=== PATIENT | female | born 1975 | race Caucasian/White ===

== ENCOUNTER → 2017-10-12 | Outpatient (CLI) | payer BC ==
[~2017-10-12] MED LIST: ALBUAER19 INH; MULT-506 PO; OMEG10007 PO
== END | disposition home or self-care (01) ==
LOC: C.PATHSPEC 11:18
PROVIDERS: ATTEND Obstetrics & Gynecology
DX: R87.810 Cervical high risk human papillomavirus (HPV) DNA test positive (principal)

== ENCOUNTER 2021-02-15 10:19 | Inpatient (IN) ==
[2021-02-15 10:53] LABS: Basophils # (auto) 0.02 K/uL (0-0.2); Basophils % (auto) 0.3 %; Eosinophils # (auto) 0.36 K/uL (0-0.5); Eosinophils % (auto) 4.8 %; Hematocrit (blood only) 42.3 % (37-47); Hemoglobin 14.4 g/dL (12.0-16.0); Lymphocytes # (auto) 2.77 K/uL (1.2-3.4); Mean Corpuscular Hemoglobin 33.3 pg (25-34); Mean Corpuscular Volume 97.9 fL (80-100); Mean Platelet Volume 10.3 fL (7.4-10.4); Monocytes # (auto) 0.37 K/uL (0.11-0.59); Monocytes % (auto) 4.9 %; Neutrophils # (auto) 3.97 K/uL (1.4-6.5); Platelet Count 289 K/uL (130-400); RDW Coefficient of Variation 12.7 % (11.5-14.5); Red Blood Count 4.32 M/uL (4.2-5.4); White Blood Count 7.49 K/uL (4.8-10.8)
[2021-02-15 11:11] LABS: Albumin Level 3.9 gm/dl (3.4-5.0); BUN Creatinine Ratio 12.5 (10-20); Creatinine Clr Calc Pharmacy 97.9 ml/min; Est GFR (Non-African American) 84.5 ml/min
[2021-02-15 11:22] LABS: Acetaminophen < 2 ug/ml (10-30); Albumin Globulin Ratio 1.1 (0.9-2); Bilirubin,Total 0.3 mg/dl (0.2-1); Globulin 3.5 gm/dl (2.5-4.0); Thyroid Stimulating Hormone 0.611 uIu/ml (0.300-4.500); Total Protein 7.4 gm/dl (6.4-8.2)
[2021-02-15 11:23] LABS: Salicylate 4.4 mg/dl (2.8-20)
--- NOTE | 2021-02-15 12:18 | Emergency Department Note ---
History of Present Illness General Chief complaint: Mental Health Evaluation Stated complaint: FEELIN SUICIDAL Time Seen by Provider: 02/15/21 10:32 History of Present Illness Provider complaint: Mental health evaluation 46-year-old female presents emergency department for mental health evaluation. Patient states she has been off of her medications for her psychiatric problems for some time due to missed appointments at her outpatient psychiatric facility. She states that since she has been off her meds she has been having thoughts of trying to overdose by taking too much Tylenol. Patient states she did not try to overdose but she has been thinking about it. Patient denies any homicidal ideation. She states she feels depressed and is looking for inpatient help for her mental health distress. Home Medications Medication Instructions Recorded Confirmed Type albuterol sulfate [Ventolin HFA] 2 puff INHALATION Q6H PRN 09/24/18 02/15/21 History clonazepam 0.5 mg PO BID PRN #30 tab 10/01/18 02/15/21 Rx norgestrel-ethinyl estradiol 1 tab PO DAILY 02/15/21 02/15/21 History [Low-Ogestrel (28)] Allergies Allergy/AdvReac Type Severity Reaction Status Date / Time animal dander Allergy Unknown ? Verified 02/15/21 11:23 tetanus toxoid, adsorbed Allergy Unknown Unknown Verified 02/15/21 11:23 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) Hyperventilation syndrome Overdose by acetaminophen (03/15/14) Polysubstance overdose Rhabdomyolysis Sepsis Vaginal yeast infection Weakness Family History Brother Depression Father Depression Mother Depression Other Cancer Social History Smoking Status: Never smoker Hx Alcohol Use: Yes Alcohol type: other Preferred Language: Tamazight Communication Ability: Effective Visual Impairment: Partially Limited Hearing Ability: Normal Advertising Production Manager Required: No Beliefs That Will Affect Care: Uatsdin (The patient identifies Jehovah'S Witness and tells me that she goes to synagogue "sometimes.") Uatsdin Beliefs: patient is a Jehovah'S Witness marital status: Single Current Living Situation: Alone Current Living Situation Comment: with landlord current occupational status: unemployed Feels Safe at Home: Yes Assistive Devices: Glasses Review of Systems A total of 10 systems reviewed and were otherwise negative Physical Exam Vital Signs Vital Signs - 24 hr 02/15/21 10:25 02/15/21 13:20 02/15/21 14:28 Temperature 36.5 C Temperature Source Oral Pulse Rate 84 Pulse Rate [Left Finger] 70 Pulse Rhythm Regular Pulse Rhythm [Left Finger] Regular Pulse Strength Normal Pulse Strength [Left Finger] Normal Respiratory Rate 18 20 Respiratory Effort / Characteristics Non-Labored Spontaneous Non-Labored Spontaneous Respiratory Depth Normal Normal Respiratory Pattern Regular Blood Pressure 127/64 Blood Pressure [Left Arm] 122/70 Blood Pressure Mean 85 Blood Pressure Mean [Left Arm] 87 Blood Pressure Position Sitting Blood Pressure Position [Left Arm] Sitting Pulse Oximetry 98 98 Oxygen Delivery Method Room Air Room Air Room Air Sepsis Recent Fever Within 48 Hours No Sepsis New/Unexplained Change in Mental Status No Sepsis Action Taken by Nursing No Action Required Physical Exam HENT: Exam performed. -Head: Normocephalic and atraumatic. -Right Ear: External ear normal. No mastoid tenderness. -Left Ear: External ear normal. No mastoid tenderness. -Mouth/Throat: The oropharynx is clear and moist. No trismus in the jaw. No dental abscesses or uvula swelling. No oropharyngeal exudate or tonsillar abscesses. EYES: Conjunctivae and EOM are normal. Pupils are equal, round, and reactive to light. Right eye exhibits no discharge. Left eye exhibits no discharge. No scleral icterus. NECK: Normal range of motion. Neck supple. No JVD present. No spinous process tenderness present. No carotid bruit present. No rigidity. No tracheal deviation and normal range of motion present. No Brudzinski's sign and no Kernig's sign noted. CV: Normal rate, regular rhythm, normal heart sounds and intact distal pulses. There is no peripheral edema. Palpable radial pulses bue. PULM/CHEST: Effort normal and breath sounds normal. No respiratory distress. No stridor. She has no wheezes. She has no rales. -Chest Wall: She exhibits no tenderness. ABD: The abdomen is soft. Bowel sounds are normal. She has no distension. No mass is present. There is no tenderness. There is no rebound, no guarding, no Bull's sign and no tenderness at McBurney's point. Rovsig negative MUSC/SKEL: Normal range of motion. There is no peripheral edema, tenderness or deformity. LYMPH: No cervical adenopathy. NEURO: She is alert and oriented to person, place, and time. She has normal strength. No cranial nerve deficit or sensory deficit. Coordination and gait normal. GCS eye subscore is 4. GCS verbal subscore is 5. GCS motor subscore is 6. Cerebellar tests wnl. SKIN: Skin is warm and dry. She is not diaphoretic. PSYCH: Patient appears depressed and is having suicidal ideation. Flat affect Course Course 1032: The patient was evaluated in room A8. A complete history and physical exam was performed 1128: Patient medically cleared. Placed in observation at this time. Awaiting psychiatric evaluation and placement. 1428: Patient admitted to 3 . Medical Decision Making Laboratory Data Result diagrams: 02/15/21 10:37 02/15/21 10:37 Lab Results 02/15/21 02/15/21 02/15/21 Range/Units 10:37 10:37 10:37 WBC 7.49 (4.8-10.8) K/uL RBC 4.32 (4.2-5.4) M/uL Hgb 14.4 (12.0-16.0) g/dL Hct 42.3 (37-47) % MCV 97.9 (80-100) fL MCH 33.3 (25-34) pg MCHC 34.0 (32-36) g/dL RDW Std Deviation 46.0 (36.4-46.3) fL RDW Coeff of Yanet 12.7 (11.5-14.5) % Plt Count 289 (130-400) K/uL MPV 10.3 (7.4-10.4) fL Immature Gran % (Auto) 0.0 % Neut % (Auto) 53.0 % Lymph % (Auto) 37.0 % [place] % (Auto) 4.9 % Eos % (Auto) 4.8 % Baso % (Auto) 0.3 % Neut # (Auto) 3.97 (1.4-6.5) K/uL Lymph # (Auto) 2.77 (1.2-3.4) K/uL [place] # (Auto) 0.37 (0.11-0.59) K/uL Eos # (Auto) 0.36 (0-0.5) K/uL Baso # (Auto) 0.02 (0-0.2) K/uL Immature Gran # (Auto) 0.00 (0.00-0.02) K/uL Sodium 142 (136-145) mmol/L Potassium 4.0 (3.5-5.1) mmol/L Chloride 113 H (98-107) mmol/L Carbon Dioxide 27 (21-32) mmol/L Anion Gap 2.0 L (3-11) BUN 10 (7-18) mg/dl Creatinine 0.84 (0.6-1.2) mg/dl Est Cr Clr Drug Dosing 97.9 ml/min Est GFR ( Amer) 98.0 ml/min Est GFR (Non-Af Amer) 84.5 ml/min BUN/Creatinine Ratio 12.5 (10-20) Glucose 105 H (70-99) mg/dl Calcium 9.0 (8.5-10.1) mg/dl Total Bilirubin 0.3 (0.2-1) mg/dl AST 11 L (15-37) U/L ALT 25 (12-78) U/L Alkaline Phosphatase 51 (45-117) U/L Total Protein 7.4 (6.4-8.2) gm/dl Albumin 3.9 (3.4-5.0) gm/dl Globulin 3.5 (2.5-4.0) gm/dl Albumin/Globulin Ratio 1.1 (0.9-2) TSH 0.611 (0.300-4.500) uIu/ml HCG, Qual (Negative) Urine Color Urine Appearance (Clear) Urine pH (4.5-7.5) Ur Specific [place] (1.000-1.030) Urine Protein (Negative) Urine Glucose (UA) (Negative) Urine Ketones (Negative) Urine Blood (Negative) Urine Nitrite (Negative) Urine Bilirubin (Negative) Urine Urobilinogen (Negative) Ur Leukocyte Esterase (Negative) Salicylates 4.4 (2.8-20) mg/dl Urine Opiates Screen (Neg) Ur Methadone, Qual (Neg) Acetaminophen < 2 L (10-30) ug/ml Urine Barbiturates (Neg) Ur Phencyclidine (PCP) (Neg) U Amphetamin/Meth Scrn (Neg) MDMA (Ecstasy) Screen (Neg) U Benzodiazepines Scrn (Neg) Ur Cocaine Metabolite (Neg) U Marijuana (THC) Screen (Neg) Ethyl Alcohol mg/dL (0-3) mg/dl COVID-19 Eval Order SARS-CoV-2, RNA, NAAT (NEGATIVE) 02/15/21 02/15/21 02/15/21 Range/Units 10:37 10:40 11:16 WBC (4.8-10.8) K/uL RBC (4.2-5.4) M/uL Hgb (12.0-16.0) g/dL Hct (37-47) % MCV (80-100) fL MCH (25-34) pg MCHC (32-36) g/dL RDW Std Deviation (36.4-46.3) fL RDW Coeff of Yanet (11.5-14.5) % Plt Count (130-400) K/uL MPV (7.4-10.4) fL Immature Gran % (Auto) % Neut % (Auto) % Lymph % (Auto) % [place] % (Auto) % Eos % (Auto) % Baso % (Auto) % Neut # (Auto) (1.4-6.5) K/uL Lymph # (Auto) (1.2-3.4) K/uL [place] # (Auto) (0.11-0.59) K/uL Eos # (Auto) (0-0.5) K/uL Baso # (Auto) (0-0.2) K/uL Immature Gran # (Auto) (0.00-0.02) K/uL Sodium (136-145) mmol/L Potassium (3.5-5.1) mmol/L Chloride (98-107) mmol/L Carbon Dioxide (21-32) mmol/L Anion Gap (3-11) BUN (7-18) mg/dl Creatinine (0.6-1.2) mg/dl Est Cr Clr Drug Dosing ml/min Est GFR ( Amer) ml/min Est GFR (Non-Af Amer) ml/min BUN/Creatinine Ratio (10-20) Glucose (70-99) mg/dl Calcium (8.5-10.1) mg/dl Total Bilirubin (0.2-1) mg/dl AST (15-37) U/L ALT (12-78) U/L Alkaline Phosphatase (45-117) U/L Total Protein (6.4-8.2) gm/dl Albumin (3.4-5.0) gm/dl Globulin (2.5-4.0) gm/dl Albumin/Globulin Ratio (0.9-2) TSH (0.300-4.500) uIu/ml HCG, Qual Negative (Negative) Urine Color Urine Appearance (Clear) Urine pH (4.5-7.5) Ur Specific [place] (1.000-1.030) Urine Protein (Negative) Urine Glucose (UA) (Negative) Urine Ketones (Negative) Urine Blood (Negative) Urine Nitrite (Negative) Urine Bilirubin (Negative) Urine Urobilinogen (Negative) Ur Leukocyte Esterase (Negative) Salicylates (2.8-20) mg/dl Urine Opiates Screen (Neg) Ur Methadone, Qual (Neg) Acetaminophen (10-30) ug/ml Urine Barbiturates (Neg) Ur Phencyclidine (PCP) (Neg) U Amphetamin/Meth Scrn (Neg) MDMA (Ecstasy) Screen (Neg) U Benzodiazepines Scrn (Neg) Ur Cocaine Metabolite (Neg) U Marijuana (THC) Screen (Neg) Ethyl Alcohol mg/dL < 3.0 (0-3) mg/dl COVID-19 Eval Order Covid19 IDNow atMLAC SARS-CoV-2, RNA, NAAT (NEGATIVE) 02/15/21 02/15/21 02/15/21 Range/Units 11:16 11:52 11:52 WBC (4.8-10.8) K/uL RBC (4.2-5.4) M/uL Hgb (12.0-16.0) g/dL Hct (37-47) % MCV (80-100) fL MCH (25-34) pg MCHC (32-36) g/dL RDW Std Deviation (36.4-46.3) fL RDW Coeff of Yanet (11.5-14.5) % Plt Count (130-400) K/uL MPV (7.4-10.4) fL Immature Gran % (Auto) % Neut % (Auto) % Lymph % (Auto) % [place] % (Auto) % Eos % (Auto) % Baso % (Auto) % Neut # (Auto) (1.4-6.5) K/uL Lymph # (Auto) (1.2-3.4) K/uL [place] # (Auto) (0.11-0.59) K/uL Eos # (Auto) (0-0.5) K/uL Baso # (Auto) (0-0.2) K/uL Immature Gran # (Auto) (0.00-0.02) K/uL Sodium (136-145) mmol/L Potassium (3.5-5.1) mmol/L Chloride (98-107) mmol/L Carbon Dioxide (21-32) mmol/L Anion Gap (3-11) BUN (7-18) mg/dl Creatinine (0.6-1.2) mg/dl Est Cr Clr Drug Dosing ml/min Est GFR ( Amer) ml/min Est GFR (Non-Af Amer) ml/min BUN/Creatinine Ratio (10-20) Glucose (70-99) mg/dl Calcium (8.5-10.1) mg/dl Total Bilirubin (0.2-1) mg/dl AST (15-37) U/L ALT (12-78) U/L Alkaline Phosphatase (45-117) U/L Total Protein (6.4-8.2) gm/dl Albumin (3.4-5.0) gm/dl Globulin (2.5-4.0) gm/dl Albumin/Globulin Ratio (0.9-2) TSH (0.300-4.500) uIu/ml HCG, Qual (Negative) Urine Color Yellow Urine Appearance Clear (Clear) Urine pH 8.5 H (4.5-7.5) Ur Specific [place] 1.008 (1.000-1.030) Urine Protein Negative (Negative) Urine Glucose (UA) Negative (Negative) Urine Ketones Negative (Negative) Urine Blood Negative (Negative) Urine Nitrite Negative (Negative) Urine Bilirubin Negative (Negative) Urine Urobilinogen Negative (Negative) Ur Leukocyte Esterase Negative (Negative) Salicylates (2.8-20) mg/dl Urine Opiates Screen Neg (Neg) Ur Methadone, Qual Neg (Neg) Acetaminophen (10-30) ug/ml Urine Barbiturates Neg (Neg) Ur Phencyclidine (PCP) Neg (Neg) U Amphetamin/Meth Scrn Neg (Neg) MDMA (Ecstasy) Screen Neg (Neg) U Benzodiazepines Scrn Pos H (Neg) Ur Cocaine Metabolite Neg (Neg) U Marijuana (THC) Screen Pos H (Neg) Ethyl Alcohol mg/dL (0-3) mg/dl COVID-19 Eval Order SARS-CoV-2, RNA, NAAT NEGATIVE (NEGATIVE) MDM Narrative Observation note Indication: Psych eval/placement Patient, with PTSD, ITP, splenectomy, borderline personality disorder, panic disorder, depression, was first seen at 1032 hrs and the observation time began at 1128 hrs and was necessary in order to have psych evaluation completed . Upon re-evaluation, 3 hours of observation revealed that the patient should be admitted to 3 S. Disposition date and time February 15, 2021 1428. Impression & Plan Suicidal ideation Discharge Plan Visit Data Chief Complaint: Mental Health Evaluation Stated Complaint: FEELIN SUICIDAL ED Provider: Óscar Goodman Discharge Problem: Suicidal ideation Patient Disposition: Admitted As Inpatient Discharge Instructions Interventions: ED Discharge Assessment Last Done: 02/15/21 14:28
[2021-02-15 12:19] LABS: Appearance Urine Clear (Clear); Bilirubin Urine Negative (Negative); Blood Urine Negative (Negative); Color Urine Yellow; Glucose Urine UA Negative (Negative); Ketones Urine Negative (Negative); Leukocyte Esterase Urine Negative (Negative); Nitrite Urine Negative (Negative); Protein Urine Negative (Negative); Specific Gravity Urine 1.008 (1.000-1.030); Urobilinogen Urine Negative (Negative); pH Urine 8.5 (4.5-7.5)
[2021-02-15 13:00] LABS: Amphetamines+Metham, Urine Neg (Neg); Barbiturates, Urine Neg (Neg); Benzodiazepine, Urine Pos (Neg); Cocaine, Urine Neg (Neg); MDMA (Ecstacy), Urine Neg (Neg); Methadone, Urine Neg (Neg); Opiate, Urine Neg (Neg); Phencyclidine, Urine Neg (Neg)
[2021-02-15 13:59] LABS: Pregnancy Test, Serum Negative (Negative)
[2021-02-15] MEDS ORDERED: BISMUTH SUBSALICYLATE LIQD 236 ML PO PRN (14:36)
[2021-02-15] MEDS ORDERED: MAGNESIUM HYDROXIDE SUSP 30 ML UDC PO PRN (14:36)
[2021-02-15] MEDS ORDERED: SODIUM CHLORIDE 0.65% NA SOLN 45 ML (OCEAN) PRN (14:36)
[2021-02-15] MEDS ORDERED: hydrOXYzine HCl 25 MG TAB PO PRN (14:36)
[2021-02-15] MEDS ORDERED: ALUMINUM/MAGNESIUM SUSP 30 ML UDC PO PRN (14:36)
[2021-02-15] MEDS ORDERED: ACETAMINOPHEN 325 MG TAB PO PRN (14:36)
[2021-02-15] MEDS: clonazePAM 0.5 MG TAB PO PRN ×2 (18:26→22:10)
[2021-02-15] MEDS: hydrOXYzine HCl 25 MG TAB PO PRN ×2 (21:09→22:13)
[2021-02-16] MEDS: PATIENT'S OWN ORAL CONTRACEPTIVE PO SCH (08:53)
[2021-02-16] MEDS: clonazePAM 0.5 MG TAB PO PRN (09:02)
[2021-02-16] MEDS: ALBUTEROL HFA 8 GM INHALER INH PRN ×2 (09:24→21:31)
--- NOTE | 2021-02-16 18:08 | History & Physical ---
Date of Service February 16, 2021 Impression / Recommendations Impression ROOSEVELT VARGAS is a 46-year-old F who currently lives in with a roommate. She has a long history of PTSD, Depression, Panic Attacks, Generalized Anxiety, and repeated suicide attempts, as well as a history of multiple psychiatric hospitalizations. with very little relief from her symptoms except when she did ECT in 2018 after her Overdose attempt. (1) Anxiety: This patient is admitted to the [address] [place] [address] unit she is currently on every 15 minute checks for behavior with suicide precautions for safety this patient will participate in group recreational milieu therapies will be offered additional individual and family sessions as clinically appropriateWe will continue clonazepam at the low dose of 0.5 mg twice daily patient understands the risks of sedation and addiction and also understands the benefits. Present on Admission?: Yes (2) Major depression, recurrent, chronic: This patient is admitted to the [address] [place] [address] unit she is currently on every 15 minute checks for behavior with suicide precautions for safety this patient will participate in group recreational milieu therapies will be offered additional individual and family sessions as clinically appropriate. Given her current paranoia we will consider starting a low-dose antipsychotic such as Vraylar which patient reports never hearing of patient also interested in starting lithium we will start a low-dose lithium 300 mg labs reviewed patient understands the risks and benefits of lithium risk including hypothyroidism and acute problems with her kidneys Consider consult for ECT Present on Admission?: Yes (3) Suicidal ideation: Patient is currently on every 15 minute checks. Patient is jad for safety in the hospital even though she admits to ongoing suicidal thoughts patient denies having a plan in the hospital. Will also start lithium discussed the risk and benefits this will help minimize patient's suicidal thoughts. Present on Admission?: Yes Inventory Assets Strengths: verbal well educated Risk Factors Assessment Do You Have Access To A Gun?: No Mental Health Diagnoses: Yes Substance Use Disorders: Yes Previous Psychiatric Hospitalization: Yes Protective Factors Assessment Employed: No Good Rapport with Provider: Yes Psychiatric History Identifying Data ROOSEVELT VARGAS is a 46-year-old F who currently lives in [] [alone] with [], has a history of [], and was admitted on 02/15/21 14:36 on a [201 voluntary] [302 involuntary] commitment for []. Chief Complaint "[]". History of Present Illness 46-year-old female presents emergency department with depression worsening in the context of multiple psychosocial stressors and suicidal ideation. Patient states she has been off of her medications for her psychiatric problems for some time due to missed appointments at her outpatient psychiatric facility. She states that since she has been off her meds she has been having thoughts of trying to overdose by taking too much Tylenol. Patient states she did not try to overdose but she has been thinking about it. Per Connor Chun in ED yesterday 02/15 " Pt has been experiencing increased depression, severe hopelessness, and SI with a plan to OD. Pt has a hx of 3 prior SA by overdose and has been researching lethal OD's online. Pt reports that she is very lonely. She lives alone and has no friends or family. She is on disability and does not have a job. She is very tearful and states she sees no point in living. She had a male friend for years that she spent a lot of time with. He now has a girlfriend and she never sees him. She states that she misses him very much and that makes her loneliness even worse. Pt sees a therapist, Elodia rowe, at [facility] bi-weekly. Her PCP, Dr Whitfield prescribes 0.5 mg of Klonopin and that is the only medication that she has been taking. She went to [facility] one time (a while ago) and they prescribed medications that caused a lot of side effects so she stopped the meds (she does not remember what they were). She had a second appointment with [facility] last week but did not go to the appointment. She states that she has been too depressed to leave her apartment. She reports hypersomulence and a decreased appetite. She has a history of inpatient treatment at [facility] and [facility]. She is an every day smoker and denies D&A use. She denies hallucinations, delusions and paranoia. She is willing for inpatient treatment. Today patient reports ongoing depression she is willing to contract for safety in the hospital is future oriented about getting help but "I feel things are so bad" Patient reports stressors include recent break-up with a 6-year relationship feels her partner "" he has moved on and he is living with another woman now and he has a new life and I do want to talk about" Patient reports long history of treatment for depression with very little r elief except when she did ECT in 2018 she reports having 9 sessions of ECT which helped her significantly she reports since then "nothing seems to help" While being seen today she did admit to being willing to try other medications including lithium anything but Abilify" patient continues to endorse depression tearful during the meeting endorses ongoing suicidal thoughts no active plans here in the hospital Patient also reports that she thinks the police have been following her " I think they bugged my phone" "I kept looking for why they were doing this but nobody seemed to talk to me" patient reported that she is concerned that she was being watched and part of what brought her to the hospital was the fact that she felt the police were after her bugging her phone and she did not understand what cramps she had committed." Past Psychiatric History Previous Psych History: Patient reports a history of multiple previous psychiatric hospitalization including a number of psychiatric admissions to the behavioral health unit at [facility]. Her most recent p revious psychiatric hospitalization was at [facility] in July 2018. She has had multiple attempts at outpatient treatment, and tells me that she has tried "every psychiatric medication that anyone can think of." Current Psychiatric Diagnosis: MDD Previous Psych Admissions: [facility] 2017 Do You Have Access To A Gun?: No History of Previous Suicide Attempt: Yes Describe Attempts in the Past: Severe Overdose in 2018 S/OP ECT Past Medication Trials: Multiple past trials " every medication you can think of " Past Head Trauma/Neuro History History of Concussion/Seizure: No Allergies Allergy/AdvReac Type Severity Reaction Status Date / Time animal dander Allergy Unknown ? Verified 02/15/21 11:23 tetanus toxoid, adsorbed Allergy Unknown Unknown Verified 02/15/21 11:23 Home Medications Medication Instructions Recorded Confirmed Type albuterol sulfate [Ventolin HFA] 2 puff INHALATION Q6H PRN 09/24/18 02/15/21 History clonazepam 0.5 mg PO BID PRN #30 tab 10/01/18 02/15/21 Rx norgestrel-ethinyl estradiol 1 tab PO DAILY 02/15/21 02/15/21 History [Low-Ogestrel (28)] Family History Family History of: Doesn't Know Alcohol History Hx of Alcohol Use Over the Past 12 Months: No AUDIT Total Score: 2 Smoking Use Have You Smoked or Used Tobacco Products in the Last 30 Days: Yes tobacco type: cigarettes Smoking Status: Current every day smoker Substance History Hx of Prescription Med Misuse Over the Past 12 Months: No Hx of Over the Counter Med Misuse Over the Past 12 Months: No Hx of Inhalent Misuse Over the Past 12 Months: No Hx of Organic Substance Use Over the Past 12 Months: No Hx of Illegal Substances/Street Drug Use Over Past 12 Months: No Problems as a Result of Past Substance Use: None Identified Personal History Living Arrangements: Apartment Born In: [place], [place] Highest Grade Completed: Graduate School Marital Status: Single Number Of Children: 0 Beliefs That Will Affect Care: None Hx Traumatic Life Events: Yes Patient History Medical History Admitted to intensive care unit (Unknown) Anemia Anxiety Bilateral breast implants (01/22/13) Depression Fever (04/25/14) 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) Hyperventilation syndrome Overdose by acetaminophen (03/15/14) Polysubstance overdose Rhabdomyolysis Sepsis Vaginal yeast infection Weakness Family History Brother Depression Father Depression Mother Depression Other Cancer Social History Smoking Status: Current every day smoker Hx Alcohol Use: Yes Alcohol type: other Preferred Language: Sri Lankan Communication Ability: Effective Visual Impairment: Partially Limited Hearing Ability: Normal Work Measurement Engineer Required: No Beliefs That Will Affect Care: None marital status: Single Current Living Situation: Alone Current Living Situation Comment: with landlord current occupational status: unemployed Feels Safe at Home: Yes Assistive Devices: Glasses Review of Systems Review of Systems: All systems reviewed & are unremarkable except as noted in HPI & below Physical Exam Psychiatric: Orientation: alert, oriented x 3, oriented to person, oriented to place, oriented to time and cooperative Apperance: appropriately dressed Eye Contact: + fair eye contact Motor Behavior: + psychomotor retardation Speech: no pressured speech and no loud speech soft - Affect: + flat affect and + tearful affect Mood: + depressed mood Thought Process: goal directed thought process and linear/logical thought process Thought Content: + delusions, + persecution and + hopelessness Suicidal Thoughts: denies suicidal plan; + reports suicidal thoughts ongoing thoughts of suicide reports " this is constant" Homicidal Thoughts: denies homicidal thoughts Cognition: recent memory grossly intact, remote memory grossly intact, attention grossly intact and language grossly intact Estimated Intelligence: consistent with education level Insight: + limited insight Judgement: + limited judgement Vital Signs (Past 24 Hours): Last Vital Signs Temp 36.8 C 02/16/21 06:00 Pulse 70 02/16/21 06:34 Resp 16 02/16/21 06:00 BP 108/68 02/16/21 06:34 Pulse Ox 98 02/15/21 14:59 Results & Data ([facility]) Current Inpatient Medications Current Inpatient Medications: Current Inpatient Medications Acetaminophen (Acetaminophen 325 Mg Tab) 650 mg PO Q4H PRN PRN Reason: Headache or Minor Fever Stop: 03/17/21 14:35 Al Hydrox/Mg Hydrox/Simethicone (Aluminum/Magnesium Susp 30 Ml Udc) 30 ml PO Q4H PRN PRN Reason: GI Upset Stop: 03/17/21 14:35 Albuterol (Albuterol Hfa 8 Gm Inhaler) 2 puffs INH Q6 PRN; Protocol PRN Reason: Shortness Of Breath Or Wheezing Last Admin: 02/16/21 09:24 Dose: 2 puffs Documented by: Bismuth Subsalicylate (Bismuth Subsalicylate Liqd 236 Ml) 15 ml PO PRN PRN PRN Reason: Loose Stool Stop: 03/17/21 14:35 Clonazepam (Clonazepam 0.5 Mg Tab) 0.5 mg PO BID PRN PRN Reason: Anxiety Stop: 03/17/21 15:27 Last Admin: 02/16/21 09:02 Dose: 0.5 mg Documented by: Hydroxyzine HCl (Hydroxyzine Hcl 25 Mg Tab) 50 mg PO HSZ PRN PRN Reason: Insomnia Stop: 03/17/21 14:35 Last Admin: 02/15/21 22:13 Dose: 50 mg Documented by: Hydroxyzine HCl (Hydroxyzine Hcl 25 Mg Tab) 25 mg PO Q4H PRN PRN Reason: Anxiety Stop: 03/17/21 14:35 Magnesium Hydroxide (Magnesium Hydroxide Susp 30 Ml Udc) 30 ml PO DAILY PRN PRN Reason: Constipation Stop: 03/17/21 14:35 Miscellaneous (Patient's Own Oral Contraceptive) 1 ea PO DAILY MARY; Protocol Stop: 03/18/21 08:59 Last Admin: 02/16/21 08:53 Dose: 1 ea Documented by: Sodium Chloride (Sodium Chloride 0.65% Na Soln 45 Ml ([place])) 1 - 2 sprays NA PRN PRN PRN Reason: Nasal Dryness/Congestion Stop: 03/17/21 14:35
[2021-02-16] MEDS: clonazePAM 0.5 MG TAB PO SCH (20:46)
[2021-02-16] MEDS: hydrOXYzine HCl 25 MG TAB PO PRN (21:39)
[2021-02-16] MEDS ORDERED: LITHIUM CARBONATE 300 MG TAB PO SCH (22:00)
[2021-02-17] MEDS: PATIENT'S OWN ORAL CONTRACEPTIVE PO SCH (08:47)
[2021-02-17] MEDS: clonazePAM 0.5 MG TAB PO SCH ×2 (08:49→20:42)
[2021-02-17] MEDS: LITHIUM CARBONATE 300 MG TAB PO SCH (13:48)
[2021-02-17] MEDS: ALBUTEROL HFA 8 GM INHALER INH PRN (15:25)
[2021-02-17] MEDS ORDERED: LURASIDONE HCL 40 MG TAB PO SCH ×2 (17:30→21:00)
[2021-02-17] MEDS: LURASIDONE HCL 40 MG TAB PO SCH (17:39)
[2021-02-17] MEDS: hydrOXYzine HCl 25 MG TAB PO PRN (20:41)
--- NOTE | 2021-02-17 20:57 | Psychiatric Progress Note ---
Date of Service February 17, 2021 Impression / Recommendations Impression ROOSEVELT VARGAS is a 46-year-old F who currently lives in with a roommate. She has a long history of PTSD, Depression, Panic Attacks, Generalized Anxiety, and repeated suicide attempts, as well as a history of multiple psychiatric hospitalizations. with very little relief from her symptoms except when she did ECT in 2018 after her Overdose attempt. (1) Anxiety: This patient is admitted to the [address] [place] [address] unit she is currently on every 15 minute checks for behavior with suicide precautions for safety this patient will participate in group recreational milieu therapies will be offered additional individual and family sessions as clinically appropriateWe will continue clonazepam at the low dose of 0.5 mg twice daily patient understands the risks of sedation and addiction and also understands the benefits. (2) Major depression, recurrent, chronic: This patient is admitted to the [address] [place] [address] unit she is currently on every 15 minute checks for behavior with suicide precautions for safety this patient will participate in group recreational milieu therapies will be offered additional individual and family sessions as clinically appropriate. Given her current paranoia we will consider starting a low-dose antipsychotic such as Vraylar which patient reports never hearing of patient also interested in starting lithium we will start a low-dose lithium 300 mg labs reviewed patient understands the risks and benefits of lithium risk including hypothyroidism and acute problems with her kidneys Consider consult for ECT 02/17/21 [place] changed to morning Latuda added as Adjunct at night - 40mg - daily with meals. Risks and Benefis of Antipsychotics discussed (3) Suicidal ideation: Patient is currently on every 15 minute checks. Patient is jad for safety in the hospital even though she admits to ongoing suicidal thoughts patient denies having a plan in the hospital. Will also start lithium discussed the risk and benefits this will help minimize patient's suicidal thoughts. 02/17/21- reports ongoing chronic thoughts of suicide - contracts for safety in the hospital Inventory Assets Strengths: verbal well educated Risk Factors Assessment Do You Have Access To A Gun?: No Mental Health Diagnoses: Yes Substance Use Disorders: Yes Previous Psychiatric Hospitalization: Yes Protective Factors Assessment Employed: No Good Rapport with Provider: Yes Interval History Chief Complaint "[I think the lithium is helping me"]". "I am still depressed but I think there is hope" Review of Systems Sleep Information Total Hours of Sleep: 6 Meal Information Percent Meal Consumed - Breakfast: 90 Percent Meal Consumed - Lunch: 90 Percent Meal Consumed - Dinner: 100 Subjective Subjective Patient was seen & assessed and interval progress reviewed with treatment team nursing and social work Patient continues to endorse passive thoughts of , continues to endorse depression, continues to endorse difficulty with focus and concentration. Patient also reports that she feels lithium would be better during the daytime. She denies hallucinations. Is less vocal about her thoughts on admission of the police following her. Physical Exam Psychiatric Orientation: alert, oriented x 3, oriented to person, oriented to place, oriented to time and cooperative Apperance: appropriately dressed Eye Contact: + fair eye contact Motor Behavior: + psychomotor retardation Speech: no pressured speech and no loud speech Affect: + flat affect and + tearful affect Mood: + depressed mood Thought Process: goal directed thought process and linear/logical thought process Thought Content: + delusions, + persecution and + hopelessness Suicidal Thoughts: denies suicidal plan; + reports suicidal thoughts Homicidal Thoughts: denies homicidal thoughts Cognition: recent memory grossly intact, remote memory grossly intact, attention grossly intact and language grossly intact Estimated Intelligence: consistent with education level Insight: + limited insight Judgement: + limited judgement Vital Signs (Past 24 Hours) Last Vital Signs Temp 36.6 C 02/17/21 20:00 Pulse 85 02/17/21 15:25 Resp 14 02/17/21 15:25 BP 116/70 02/17/21 06:57 Pulse Ox 98 02/17/21 15:25 Results & Data ([facility]) Current Inpatient Medications Current Inpatient Medications: Current Inpatient Medications Acetaminophen (Acetaminophen 325 Mg Tab) 650 mg PO Q4H PRN PRN Reason: Headache or Minor Fever Stop: 03/17/21 14:35 Al Hydrox/Mg Hydrox/Simethicone (Aluminum/Magnesium Susp 30 Ml Udc) 30 ml PO Q4H PRN PRN Reason: GI Upset Stop: 03/17/21 14:35 Albuterol (Albuterol Hfa 8 Gm Inhaler) 2 puffs INH Q6 PRN; Protocol PRN Reason: Shortness Of Breath Or Wheezing Last Admin: 02/17/21 15:25 Dose: 2 puffs Documented by: Bismuth Subsalicylate (Bismuth Subsalicylate Liqd 236 Ml) 15 ml PO PRN PRN PRN Reason: Loose Stool Stop: 03/17/21 14:35 Clonazepam (Clonazepam 0.5 Mg Tab) 0.5 mg PO BID PRN PRN Reason: Anxiety Stop: 03/17/21 15:27 Last Admin: 02/16/21 09:02 Dose: 0.5 mg Documented by: Clonazepam (Clonazepam 0.5 Mg Tab) 0.5 mg PO BID MARY Stop: 03/18/21 20:59 Last Admin: 02/17/21 20:42 Dose: 0.5 mg Documented by: Hydroxyzine HCl (Hydroxyzine Hcl 25 Mg Tab) 50 mg PO HSZ PRN PRN Reason: Insomnia Stop: 03/17/21 14:35 Last Admin: 02/17/21 20:41 Dose: 50 mg Documented by: Hydroxyzine HCl (Hydroxyzine Hcl 25 Mg Tab) 25 mg PO Q4H PRN PRN Reason: Anxiety Stop: 03/17/21 14:35 [place] Carbonate ([place] Carbonate 300 Mg Tab) 300 mg PO QAM MARY Stop: 03/19/21 13:44 Last Admin: 02/17/21 13:48 Dose: 300 mg Documented by: Lurasidone HCl (Lurasidone Hcl 40 Mg Tab) 40 mg PO 1730 MARY Stop: 03/19/21 17:29 Last Admin: 02/17/21 17:39 Dose: 40 mg Documented by: Magnesium Hydroxide (Magnesium Hydroxide Susp 30 Ml Udc) 30 ml PO DAILY PRN PRN Reason: Constipation Stop: 03/17/21 14:35 Miscellaneous (Patient's Own Oral Contraceptive) 1 ea PO DAILY MARY; Protocol Stop: 03/18/21 08:59 Last Admin: 02/17/21 08:47 Dose: 1 ea Documented by: Sodium Chloride (Sodium Chloride 0.65% Na Soln 45 Ml ([place])) 1 - 2 sprays NA PRN PRN PRN Reason: Nasal Dryness/Congestion Stop: 03/17/21 14:35 Mental Health & Subst Abuse Tx Therapist Name of Therapist: [facility] Therapist's Therapy Appointment Comment: [address] [place] [address] Manager Lan Name of Manager Lan: ANTONIETTA Ross Phone Number for Manager Lan: [phone] Post Discharge Appointments Primary Care Physician Name Of Family Doctor: [facility] - Dr Whitfield Primary Care Provider Appointment Comment: [address], [address], [place] Contact Information Discharge Discharge Address: [address] [place] [address], [address], [place] [address]
[2021-02-18 00:06] LABS: 7-Aminoclonaz, Confirm 30 ng/mL (<25); Hydro-Alp Ur, GC/MS NEGATIVE ng/mL (<25); Hydroxyethylflurazepam, Conf NEGATIVE ng/mL (<50); Hydroxymidazolam Ur, GC/MS NEGATIVE ng/mL (<50); Hydroxytriazolam NEGATIVE ng/mL (<50); Lorazepam, Ur GC/MS NEGATIVE ng/mL (<50); Marijuana Quant, GCMS Urine 190 ng/mL (<5); Nordiazepam, Confirm 331 ng/mL (<50); Oxazepam Ur, GC/MS 564 ng/mL (<50); Temazepam, Confirm 558 ng/mL (<50)
[2021-02-18] MEDS: PATIENT'S OWN ORAL CONTRACEPTIVE PO SCH (09:09)
[2021-02-18] MEDS: clonazePAM 0.5 MG TAB PO SCH ×2 (09:09→21:18)
[2021-02-18] MEDS: LITHIUM CARBONATE 300 MG TAB PO SCH (09:09)
[2021-02-18 09:31] LABS: Glucose Fasting 104 mg/dl (70-99)
[2021-02-18 09:37] LABS: Chol HDL Ratio 3; Cholesterol 186 mg/dl (0-200); HDL Cholesterol 55 mg/dl; LDL Cholesterol Calculated 102 mg/dl; Triglycerides 145 mg/dl (0-150); VLDL Cholesterol 29 mg/dl
[2021-02-18] MEDS: LURASIDONE HCL 40 MG TAB PO SCH (17:18)
--- NOTE | 2021-02-18 18:51 | Psychiatric Progress Note ---
Date of Service February 18, 2021 Impression / Recommendations Impression ROOSEVELT VARGAS is a 46-year-old F who currently lives in with a roommate. She has a long history of PTSD, Depression, Panic Attacks, Generalized Anxiety, and repeated suicide attempts, as well as a history of multiple psychiatric hospitalizations. with very little relief from her symptoms except when she did ECT in 2018 after her Overdose attempt. (1) Anxiety: This patient is admitted to the [address] [place] [address] unit she is currently on every 15 minute checks for behavior with suicide precautions for safety this patient will participate in group recreational milieu therapies will be offered additional individual and family sessions as clinically appropriateWe will continue clonazepam at the low dose of 0.5 mg twice daily patient understands the risks of sedation and addiction and also understands the benefits. (2) Major depression, recurrent, chronic: This patient is admitted to the [address] [place] [address] unit she is currently on every 15 minute checks for behavior with suicide precautions for safety this patient will participate in group recreational milieu therapies will be offered additional individual and family sessions as clinically appropriate. Given her current paranoia we will consider starting a low-dose antipsychotic such as Vraylar which patient reports never hearing of patient also interested in starting lithium we will start a low-dose lithium 300 mg labs reviewed patient understands the risks and benefits of lithium risk including hypothyroidism and acute problems with her kidneys Consider consult for ECT 02/18/21- Increased lithium ongoing thoughts of - recomendations or TMS - given 02/17/21 [place] changed to morning Latuda added as Adjunct at night - 40mg - daily with meals. Risks and Benefis of Antipsychotics discussed (3) Suicidal ideation: Patient is currently on every 15 minute checks. Patient is jad for safety in the hospital even though she admits to ongoing suicidal thoughts patient denies having a plan in the hospital. Will also start lithium discussed the risk and benefits this will help minimize patient's suicidal thoughts. 02/17/21- reports ongoing chronic thoughts of suicide - contracts for safety in the hospital Inventory Assets Strengths: verbal well educated Risk Factors Assessment Do You Have Access To A Gun?: No Mental Health Diagnoses: Yes Substance Use Disorders: Yes Previous Psychiatric Hospitalization: Yes Protective Factors Assessment Employed: No Good Rapport with Provider: Yes Interval History Chief Complaint "[I think I might be getting better"]". Review of Systems Sleep Information Total Hours of Sleep: 7.5 Meal Information Percent Meal Consumed - Breakfast: 100 Percent Meal Consumed - Lunch: 90 Percent Meal Consumed - Dinner: 100 Subjective Subjective Patient was seen & assessed and interval progress reviewed with treatment team [nursing and social work Met with this patient as well and patient reports ongoing depression patient tearful during session when describing her recent episodes with depression. However patient today seen more in the milieu she is attending groups she was noted to be using the exercise bicycle. Patient tearful when discussing her past relationship. She appears optimistic about new medication. Patient denying delusions or hallucinations. Patient admits to ongoing thoughts of and passive thoughts of suicide. Contract for safety in the hospital. Physical Exam Psychiatric Orientation: alert, oriented x 3, oriented to person, oriented to place, oriented to time and cooperative Apperance: appropriately dressed Eye Contact: + fair eye contact Motor Behavior: + psychomotor retardation Speech: no pressured speech and no loud speech Affect: + flat affect and + tearful affect Mood: + depressed mood Thought Process: goal directed thought process and linear/logical thought process Thought Content: + preoccupation and + hopelessness; no delusions and no persecution Suicidal Thoughts: denies suicidal plan; + reports suicidal thoughts Ongoing passive thoughts of suicide- jad for safety in the hospital Homicidal Thoughts: denies homicidal thoughts Cognition: recent memory grossly intact, remote memory grossly intact, attention grossly intact and language grossly intact Estimated Intelligence: consistent with education level Insight: + limited insight Judgement: + limited judgement Vital Signs (Past 24 Hours) Last Vital Signs Temp 36.6 C 02/18/21 06:41 Pulse 75 02/18/21 06:41 Resp 16 02/18/21 06:41 BP 104/64 02/18/21 06:41 Pulse Ox 98 02/17/21 15:25 Results & Data ([facility]) Laboratory Results Laboratory Results - last 24 hr 02/15/21 02/18/21 11:52 09:00 Fasting Glucose 104 H Triglycerides 145 Cholesterol 186 LDL Cholesterol, Calc 102 VLDL Cholesterol, Calc 29 HDL Cholesterol 55 Cholesterol/HDL Ratio 3 U OH-Alprazolam Confrm NEGATIVE 7-[place] Clonazepam 30 H Ur Nordiazepam Confirm 331 H U OH-ethylflurazepam NEGATIVE U Lorazepam Cnf GC/MS NEGATIVE U Oxazepam Confm GC/MS 564 H Ur Temazepam Confirm 558 H U OH-Triazolam Confirm NEGATIVE U OH-Midazolam Confirm NEGATIVE U Marijuana THC Carboxy 190 H Drug Screen Comment SEE NOTE Current Inpatient Medications Current Inpatient Medications: Current Inpatient Medications Acetaminophen (Acetaminophen 325 Mg Tab) 650 mg PO Q4H PRN PRN Reason: Headache or Minor Fever Stop: 03/17/21 14:35 Al Hydrox/Mg Hydrox/Simethicone (Aluminum/Magnesium Susp 30 Ml Udc) 30 ml PO Q4H PRN PRN Reason: GI Upset Stop: 03/17/21 14:35 Albuterol (Albuterol Hfa 8 Gm Inhaler) 2 puffs INH Q6 PRN; Protocol PRN Reason: Shortness Of Breath Or Wheezing Last Admin: 02/17/21 15:25 Dose: 2 puffs Documented by: Bismuth Subsalicylate (Bismuth Subsalicylate Liqd 236 Ml) 15 ml PO PRN PRN PRN Reason: Loose Stool Stop: 03/17/21 14:35 Clonazepam (Clonazepam 0.5 Mg Tab) 0.5 mg PO BID PRN PRN Reason: Anxiety Stop: 03/17/21 15:27 Last Admin: 02/16/21 09:02 Dose: 0.5 mg Documented by: Clonazepam (Clonazepam 0.5 Mg Tab) 0.5 mg PO BID MARY Stop: 03/18/21 20:59 Last Admin: 02/18/21 09:09 Dose: 0.5 mg Documented by: Hydroxyzine HCl (Hydroxyzine Hcl 25 Mg Tab) 50 mg PO HSZ PRN PRN Reason: Insomnia Stop: 03/17/21 14:35 Last Admin: 02/17/21 20:41 Dose: 50 mg Documented by: Hydroxyzine HCl (Hydroxyzine Hcl 25 Mg Tab) 25 mg PO Q4H PRN PRN Reason: Anxiety Stop: 03/17/21 14:35 [place] Carbonate ([place] Carbonate 300 Mg Tab) 600 mg PO QAM MARY Stop: 03/21/21 08:59 Lurasidone HCl (Lurasidone Hcl 40 Mg Tab) 40 mg PO 1730 MARY Stop: 03/19/21 17:29 Last Admin: 02/18/21 17:18 Dose: 40 mg Documented by: Magnesium Hydroxide (Magnesium Hydroxide Susp 30 Ml Udc) 30 ml PO DAILY PRN PRN Reason: Constipation Stop: 03/17/21 14:35 Miscellaneous (Patient's Own Oral Contraceptive) 1 ea PO DAILY MARY; Protocol Stop: 03/18/21 08:59 Last Admin: 02/18/21 09:09 Dose: 1 ea Documented by: Sodium Chloride (Sodium Chloride 0.65% Na Soln 45 Ml ([place])) 1 - 2 sprays NA PRN PRN PRN Reason: Nasal Dryness/Congestion Stop: 03/17/21 14:35 Mental Health & Subst Abuse Tx Therapist Name of Therapist: [facility] Therapist's Date of Therapist Appointment: 03/01/21 Time of Therapist Appointment: 11am Therapy Appointment Comment: [address] [place] [address] Silverware Washer Name of Silverware Washer: ANTONIETTA Ross Phone Number for Silverware Washer: [phone] Post Discharge Appointments Primary Care Physician Name Of Family Doctor: [facility] - Dr Whitfield Primary Care Provider Appointment Comment: [address], [address], [place] Contact Information Discharge Discharge Address: [address] [place] [address], [address] [place] [address]
[2021-02-18] MEDS: ALBUTEROL HFA 8 GM INHALER INH PRN (19:11)
[2021-02-18] MEDS ORDERED: ALBUTEROL HFA 8 GM INHALER INH PRN (19:34)
[2021-02-18] MEDS: hydrOXYzine HCl 25 MG TAB PO PRN (21:19)
[2021-02-19] MEDS: clonazePAM 0.5 MG TAB PO SCH ×2 (09:28→20:51)
[2021-02-19] MEDS: PATIENT'S OWN ORAL CONTRACEPTIVE PO SCH (09:29)
[2021-02-19] MEDS: LITHIUM CARBONATE 300 MG TAB PO SCH (09:29)
[2021-02-19] MEDS: LURASIDONE HCL 40 MG TAB PO SCH (18:29)
--- NOTE | 2021-02-19 19:37 | Psychiatric Progress Note ---
Date of Service February 19, 2021 Impression / Recommendations (1) Anxiety: This patient is admitted to the [address] [place] [address] mental health unit she is currently on every 15 minute checks for behavior with suicide precautions for safety this patient will participate in group recreational m ilieu therapies will be offered additional individual and family sessions as clinically appropriateWe will continue clonazepam at the low dose of 0.5 mg twice daily patient understands the risks of sedation and addiction and also understands the benefits. (2) Major depression, recurrent, chronic: This patient is admitted to the [address] [place] [address] unit she is currently on every 15 minute checks for behavior with suicide precautions for safety this patient will participate in group recreational milieu therapies will be offered additional individual and family sessions as clinically appropriate. Given her current paranoia we will consider starting a low-dose antipsychotic such as Vraylar which patient reports never hearing of patient also interested in starting lithium we will start a low-dose lithium 300 mg labs reviewed patient understands the risks and benefits of lithium risk including hypothyroidism and acute problems with her kidneys Consider consult for ECT 02/19/2021 patient reports some side effects from Latuda and is ambivalent about continuing Latuda on the outside will discontinue Latuda patient is doing well with just the lithium consider serotonin SSRI as adjunct. Patient remains chronically suicidal for inpatient hospitalization is still necessary to continue to evaluate given the seriousness of her overdose attempts in the past 02/18/21- Increased lithium ongoing thoughts of - recomendations or TMS - given 02/17/21 [place] changed to morning Latuda added as Adjunct at night - 40mg - daily with meals. Risks and Benefis of Antipsychotics discussed (3) Suicidal ideation: Patient is currently on every 15 minute checks. Patient is jad for safety in the hospital even though she admits to ongoing suicidal thoughts patient denies having a plan in the hospital. Will also start lithium discussed the risk and benefits this will help minimize patient's suicidal thoughts. 02/17/21- reports ongoing chronic thoughts of suicide - contracts for safety in the hospital Risk Factors Assessment Do You Have Access To A Gun?: No Mental Health Diagnoses: Yes Substance Use Disorders: Yes Previous Psychiatric Hospitalization: Yes Protective Factors Assessment Employed: No Good Rapport with Provider: Yes Interval History Chief Complaint "[I think I am doing better]". Review of Systems Sleep Information Total Hours of Sleep: 7.25 Meal Information Percent Meal Consumed - Breakfast: 100 Percent Meal Consumed - Lunch: 100 Percent Meal Consumed - Dinner: 100 Subjective Subjective Patient was seen & assessed and interval progress reviewed with treatment team [nursing and social work patient seen by parts data writer and discussed with the treatment team patient reports feeling better reports that she feels a little more hopeful reports medications have made some improvement she also reports attending groups as a significant factor to her improvement patient however does complain about side effects from Latuda feels that the Latuda is making her eyes "weird" Patient denies active suicidal thoughts, patient reports those thoughts will always be there so admits to chronic thoughts but no active thoughts no plans no hallucinations no delusions no evidence of response to internal stimuli. Physical Exam Psychiatric Orientation: alert, oriented x 3, oriented to person, oriented to place, oriented to time and cooperative Apperance: appropriately dressed Eye Contact: + fair eye contact Motor Behavior: steady gait and station; no psychomotor retardation Speech: no pressured speech and no loud speech Affect: + anxious affect; no flat affect and no tearful affect Mood: + depressed mood and + anxious mood Thought Process: goal directed thought process, linear/logical thought process and clear/coherent thought process Thought Content: no preoccupation, no delusions, no persecution and no hopelessness Suicidal Thoughts: denies suicidal thoughts and denies suicidal plan Ongoing chronic thoughts of suicide but no active thoughts Homicidal Thoughts: denies homicidal thoughts and denies homicidal plan Cognition: recent memory grossly intact, remote memory grossly intact, attention grossly intact and language grossly intact Estimated Intelligence: consistent with education level Insight: + fair insight Judgement: + fair judgement Vital Signs (Past 24 Hours) Last Vital Signs Temp 36.7 C 02/19/21 06:44 Pulse 69 02/19/21 06:45 Resp 16 02/19/21 06:44 BP 106/67 02/19/21 06:45 Pulse Ox 98 02/18/21 19:11 Results & Data ([facility]) Current Inpatient Medications Current Inpatient Medications: Current Inpatient Medications Acetaminophen (Acetaminophen 325 Mg Tab) 650 mg PO Q4H PRN PRN Reason: Headache or Minor Fever Stop: 03/17/21 14:35 Al Hydrox/Mg Hydrox/Simethicone (Aluminum/Magnesium Susp 30 Ml Udc) 30 ml PO Q4H PRN PRN Reason: GI Upset Stop: 03/17/21 14:35 Albuterol (Albuterol Hfa 8 Gm Inhaler) 2 puffs INH Q6 PRN; Protocol PRN Reason: Shortness Of Breath Or Wheezing Stop: 03/21/21 00:00 Bismuth Subsalicylate (Bismuth Subsalicylate Liqd 236 Ml) 15 ml PO PRN PRN PRN Reason: Loose Stool Stop: 03/17/21 14:35 Clonazepam (Clonazepam 0.5 Mg Tab) 0.5 mg PO BID PRN PRN Reason: Anxiety Stop: 03/17/21 15:27 Last Admin: 02/16/21 09:02 Dose: 0.5 mg Documented by: Clonazepam (Clonazepam 0.5 Mg Tab) 0.5 mg PO BID MARY Stop: 03/18/21 20:59 Last Admin: 02/19/21 09:28 Dose: 0.5 mg Documented by: Hydroxyzine HCl (Hydroxyzine Hcl 25 Mg Tab) 50 mg PO HSZ PRN PRN Reason: Insomnia Stop: 03/17/21 14:35 Last Admin: 02/18/21 21:19 Dose: 50 mg Documented by: Hydroxyzine HCl (Hydroxyzine Hcl 25 Mg Tab) 25 mg PO Q4H PRN PRN Reason: Anxiety Stop: 03/17/21 14:35 [place] Carbonate ([place] Carbonate 300 Mg Tab) 600 mg PO QAM MARY Stop: 03/21/21 08:59 Last Admin: 02/19/21 09:29 Dose: 600 mg Documented by: Magnesium Hydroxide (Magnesium Hydroxide Susp 30 Ml Udc) 30 ml PO DAILY PRN PRN Reason: Constipation Stop: 03/17/21 14:35 Miscellaneous (Patient's Own Oral Contraceptive) 1 ea PO DAILY MARY; Protocol Stop: 03/18/21 08:59 Last Admin: 02/19/21 09:29 Dose: 1 ea Documented by: Sodium Chloride (Sodium Chloride 0.65% Na Soln 45 Ml ([place])) 1 - 2 sprays NA PRN PRN PRN Reason: Nasal Dryness/Congestion Stop: 03/17/21 14:35 Mental Health & Subst Abuse Tx Therapist Name of Therapist: [facility] [place] Therapist's Date of Therapist Appointment: 03/01/21 Time of Therapist Appointment: 11am Therapy Appointment Comment: [address] [place] [address] Senior Mechanical Project Manager Name of Senior Mechanical Project Manager: ANTONIETTA Ross Phone Number for Senior Mechanical Project Manager: [phone] Post Discharge Appointments Primary Care Physician Name Of Family Doctor: [facility] - Dr Whitfield Primary Care Provider Appointment Comment: [address], [address], [place] Contact Information Discharge Discharge Address: [address] [place] [address], [address], [place] [address]
[2021-02-19] MEDS: hydrOXYzine HCl 25 MG TAB PO PRN (20:53)
[2021-02-20] MEDS: clonazePAM 0.5 MG TAB PO SCH ×2 (08:20→21:24)
[2021-02-20] MEDS: PATIENT'S OWN ORAL CONTRACEPTIVE PO SCH (08:21)
[2021-02-20] MEDS: LITHIUM CARBONATE 300 MG TAB PO SCH (08:21)
--- NOTE | 2021-02-20 18:16 | Psychiatric Progress Note ---
Date of Service February 20, 2021 Impression / Recommendations (1) Anxiety: This patient is admitted to the [address] [place] [address] mental health unit she is currently on every 15 minute checks for behavior with suicide precautions for safety this patient will participate in group recreational m ilieu therapies will be offered additional individual and family sessions as clinically appropriateWe will continue clonazepam at the low dose of 0.5 mg twice daily patient understands the risks of sedation and addiction and also understands the benefits. (2) Major depression, recurrent, chronic: This patient is admitted to the [address] [place] [address] [facility] she is currently on every 15 minute checks for behavior with suicide precautions for safety this patient will participate in group recreational milieu therapies will be offered additional individual and family sessions as clinically appropriate. Given her current paranoia we will consider starting a low-dose antipsychotic such as Vraylar which patient reports never hearing of patient also interested in starting lithium we will start a low-dose lithium 300 mg labs reviewed patient understands the risks and benefits of lithium risk including hypothyroidism and acute problems with her kidneys Consider consult for ECT 02/20/2021 patient has felt better after Latuda has been discontinued she really feels more awake per patient she denies side effects from lithium we will check lithium level lithium dose is currently very low. At this point unclear if there is any need to increase patient denies suicidal ideation while in the hospital we will continue to monitor giving her past history of significant illness. 02/19/2021 patient reports some side effects from Latuda and is ambivalent about continuing Latuda on the outside will discontinue Latuda patient is doing well with just the lithium consider serotonin SSRI as adjunct. Patient remains chronically suicidal for inpatient hospitalization is still necessary to continue to evaluate given the seriousness of her overdose attempts in the past 02/18/21- Increased lithium ongoing thoughts of - recomendations or TMS - given 02/17/21 [place] changed to morning Latuda added as Adjunct at night - 40mg - daily with meals. Risks and Benefis of Antipsychotics discussed (3) Suicidal ideation: Patient is currently on every 15 minute checks. Patient is jad for safety in the hospital even though she admits to ongoing suicidal thoughts patient denies having a plan in the hospital. Will also start lithium discussed the risk and benefits this will help minimize patient's suicidal thoughts. 02/17/21- reports ongoing chronic thoughts of suicide - contracts for safety in the hospital Risk Factors Assessment Do You Have Access To A Gun?: No Mental Health Diagnoses: Yes Substance Use Disorders: Yes Previous Psychiatric Hospitalization: Yes Protective Factors Assessment Employed: No Good Rapport with Provider: Yes Interval History Chief Complaint "I think I am getting better I am looking forward to TMS]". Review of Systems Sleep Information Total Hours of Sleep: 6.5 Meal Information Percent Meal Consumed - Breakfast: 99 Percent Meal Consumed - Lunch: 100 Percent Meal Consumed - Dinner: 100 Subjective Subjective Patient was seen & assessed and interval progress reviewed with treatment team nursing and social work patient reports doing better she is actively engaged in groups affect is much improved she denies suicidal ideation she denies homicidal ideation at this time she does admits to feeling more hopeful especially as she thinks about going back into the community she reports being actively engaged in groups and"I am trying to learn everything I can" Physical Exam Psychiatric Orientation: alert, oriented x 3, oriented to person, oriented to place, oriented to time and cooperative Apperance: appropriately dressed Eye Contact: + fair eye contact Motor Behavior: steady gait and station; no psychomotor retardation Speech: normal rate/rhythm/volume of speech; no pressured speech and no loud speech Affect: euthymic affect and + anxious affect; no flat affect and no tearful affect Mood: + depressed mood and + anxious mood Thought Process: goal directed thought process, linear/logical thought process and clear/coherent thought process Thought Content: no preoccupation, no delusions, no persecution and no hopelessness Suicidal Thoughts: denies suicidal thoughts and denies suicidal plan Homicidal Thoughts: denies homicidal thoughts and denies homicidal plan Cognition: recent memory grossly intact, remote memory grossly intact, attention grossly intact and language grossly intact Estimated Intelligence: consistent with education level Insight: + fair insight Judgement: + fair judgement Vital Signs (Past 24 Hours) Last Vital Signs Temp 36.8 C 02/20/21 06:46 Pulse 76 02/20/21 06:47 Resp 16 02/20/21 06:46 BP 113/70 02/20/21 06:47 Pulse Ox 98 02/18/21 19:11 [facility] Current Inpatient Medications Current Inpatient Medications: Current Inpatient Medications Acetaminophen (Acetaminophen 325 Mg Tab) 650 mg PO Q4H PRN PRN Reason: Headache or Minor Fever Stop: 03/17/21 14:35 Al Hydrox/Mg Hydrox/Simethicone (Aluminum/Magnesium Susp 30 Ml Udc) 30 ml PO Q4H PRN PRN Reason: GI Upset Stop: 03/17/21 14:35 Albuterol (Albuterol Hfa 8 Gm Inhaler) 2 puffs INH Q6 PRN; Protocol PRN Reason: Shortness Of Breath Or Wheezing Stop: 03/21/21 00:00 Bismuth Subsalicylate (Bismuth Subsalicylate Liqd 236 Ml) 15 ml PO PRN PRN PRN Reason: Loose Stool Stop: 03/17/21 14:35 Clonazepam (Clonazepam 0.5 Mg Tab) 0.5 mg PO BID PRN PRN Reason: Anxiety Stop: 03/17/21 15:27 Last Admin: 02/16/21 09:02 Dose: 0.5 mg Documented by: Clonazepam (Clonazepam 0.5 Mg Tab) 0.5 mg PO BID MARY Stop: 03/18/21 20:59 Last Admin: 02/20/21 08:20 Dose: 0.5 mg Documented by: Hydroxyzine HCl (Hydroxyzine Hcl 25 Mg Tab) 50 mg PO HSZ PRN PRN Reason: Insomnia Stop: 03/17/21 14:35 Last Admin: 02/19/21 20:53 Dose: 50 mg Documented by: Hydroxyzine HCl (Hydroxyzine Hcl 25 Mg Tab) 25 mg PO Q4H PRN PRN Reason: Anxiety Stop: 03/17/21 14:35 [place] Carbonate ([place] Carbonate 300 Mg Tab) 600 mg PO QAM MARY Stop: 03/21/21 08:59 Last Admin: 02/20/21 08:21 Dose: 600 mg Documented by: Magnesium Hydroxide (Magnesium Hydroxide Susp 30 Ml Udc) 30 ml PO DAILY PRN PRN Reason: Constipation Stop: 03/17/21 14:35 Miscellaneous (Patient's Own Oral Contraceptive) 1 ea PO DAILY MARY; Protocol Stop: 03/18/21 08:59 Last Admin: 02/20/21 08:21 Dose: 1 ea Documented by: Sodium Chloride (Sodium Chloride 0.65% Na Soln 45 Ml ([place])) 1 - 2 sprays NA PRN PRN PRN Reason: Nasal Dryness/Congestion Stop: 03/17/21 14:35 Mental Health & Subst Abuse Tx Therapist Name of Therapist: [facility] - [place] Therapist's Date of Therapist Appointment: 03/01/21 Time of Therapist Appointment: 11am Therapy Appointment Comment: [id number] [place] [address] Cooler Tender Name of Cooler Tender: ANTONIETTA Ross Phone Number for Cooler Tender: [phone] Post Discharge Appointments Primary Care Physician Name Of Family Doctor: [facility] - Dr Whitfield Primary Care Provider Appointment Comment: [phone], [address], [place] Contact Information Discharge Discharge Address: [address] [place] [address], [address], [place] [address]
[2021-02-20] MEDS: hydrOXYzine HCl 25 MG TAB PO PRN (21:23)
[2021-02-21] MEDS: LITHIUM CARBONATE 300 MG TAB PO SCH (08:48)
[2021-02-21] MEDS: clonazePAM 0.5 MG TAB PO SCH ×2 (08:48→21:17)
[2021-02-21] MEDS: PATIENT'S OWN ORAL CONTRACEPTIVE PO SCH (08:49)
[2021-02-21] MEDS ORDERED: ARIPiprazole 5 MG TAB PO STA (13:14)
[2021-02-21] MEDS: hydrOXYzine HCl 25 MG TAB PO PRN (21:17)
[2021-02-22] MEDS ORDERED: ARIPiprazole 5 MG TAB PO SCH (09:00)
[2021-02-22] MEDS: clonazePAM 0.5 MG TAB PO SCH (09:07)
[2021-02-22] MEDS: LITHIUM CARBONATE 300 MG TAB PO SCH (09:07)
[2021-02-22] MEDS: PATIENT'S OWN ORAL CONTRACEPTIVE PO SCH (09:08)
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
--- NOTE | 2021-02-22 10:09 | Discharge Summary ---
Date of Service February 22, 2021 History of Present Illness 46-year-old female presents emergency department with depression worsening in the context of multiple psychosocial stressors and suicidal ideation. Patient states she has been off of her medications for her psychiatric problems for some time due to missed appointments at her outpatient psychiatric facility. She states that since she has been off her meds she has been having thoughts of trying to overdose by taking too much Tylenol. Patient states she did not try to overdose but she has been thinking about it. Per Connor Chun in ED yesterday 02/15 " Pt has been experiencing increased depression, severe hopelessness, and SI with a plan to OD. Pt has a hx of 3 prior SA by overdose and has been researching lethal OD's online. Pt reports that she is very lonely. She lives alone and has no friends or family. She is on disability and does not have a job. She is very tearful and states she sees no point in living. She had a male friend for years that she spent a lot of time with. He now has a girlfriend and she never sees him. She states that she misses him very much and that makes her loneliness even worse. Pt sees a therapist, Heriberto, at [facility] bi-weekly. Her PCP, Dr Whitfield prescribes 0.5 mg of Klonopin and that is the only medication that she has been taking. She went to [facility] one time (a while ago) and they prescribed medications that caused a lot of side effects so she stopped the meds (she does not remember what they were). She had a second appointment with [facility] last week but did not go to the appointment. She states that she has been too depressed to leave her apartment. She reports hypersomulence and a decreased appetite. She has a history of inpatient treatment at [facility] and [facility]. She is an every day smoker and denies D&A use. She denies hallucinations, delusions and parano ia. She is willing for inpatient treatment. On admission patient reports ongoing depression she is willing to contract for safety in the hospital is future oriented about getting help but "I feel things are so bad" Patient reports stressors include recent break-up with a 6-year relationship feels her partner "" he has moved on and he is living with another woman now and he has a new life and I do want to talk about" Patient reports long history of treatment for depression with very little relief except when she did ECT in 2018 she reports having 9 sessions of ECT which helped her significantly she reports since then "nothing seems to help" While being seen today she did admit to being willing to try other medications including lithium anything but Abilify" patient continues to endorse depression tearful during the meeting endorses ongoing suicidal thoughts no active plans here in the hospital Patient also reports that she thinks the police have been following her " I think they bugged my phone" "I kept looking for why they were doing this but nobody seemed to talk to me" patient reported that she is concerned that she was being watched and part of what brought her to the hospital was the fact that she felt the police were after her bugging her phone and she did not understand what cramps she had committed." Patient seen by this provider today patient reports doing really well" patient understands her treatment plan patient was cooperative during this hospital course she denies today any thoughts of suicide homicide and hallucinations visual or auditory and she is future oriented. Physical Exam Psychiatric Orientation: alert, oriented x 3, oriented to person, oriented to place, oriented to time and cooperative Apperance: appropriately dressed Eye Contact: + fair eye contact Motor Behavior: steady gait and station; no psychomotor retardation Speech: normal rate/rhythm/volume of speech; no pressured speech and no loud speech Affect: euthymic affect and + anxious affect; no flat affect and no tearful affect Mood: no depressed mood and no anxious mood Thought Process: goal directed thought process, linear/logical thought process and clear/coherent thought process Thought Content: no preoccupation, no delusions, no persecution and no hopelessness Suicidal Thoughts: denies suicidal thoughts and denies suicidal plan Homicidal Thoughts: denies homicidal thoughts and denies homicidal plan Cognition: recent memory grossly intact, remote memory grossly intact, attention grossly intact and language grossly intact Estimated Intelligence: consistent with education level Insight: good insight; not limited insight and not fair insight Judgement: + fair judgement; not limited judgement Vital Signs (Past 24 Hours) Last Vital Signs Temp 37.0 C 02/22/21 06:00 Pulse 78 02/22/21 06:45 Resp 16 02/22/21 06:00 BP 96/65 L 02/22/21 06:45 Pulse Ox 98 02/18/21 19:11 Principal Diagnosis Bipolar disorder most recent episode depressed , mood disorder unspecified Psychiatric Data Advance Directives Advance Directives Information Provided: Yes Advance Directives: No Mental Health Advance Directive: No Advance Directives on File: No Living Will: No Power of Metalsmith: No Advance Directives Reason:: Declines as Mental Health Visit. Risk Factors Assessment Do You Have Access To A Gun?: No Mental Health Diagnoses: Yes Substance Use Disorders: Yes Previous Psychiatric Hospitalization: Yes Protective Factors Assessment Employed: No Good Rapport with Provider: Yes Discharge Data Lab Results 02/15/21 02/15/21 02/15/21 10:37 10:37 10:37 WBC 7.49 RBC 4.32 Hgb 14.4 Hct 42.3 MCV 97.9 MCH 33.3 MCHC 34.0 RDW Std Deviation 46.0 RDW Coeff of Yanet 12.7 Plt Count 289 MPV 10.3 Immature Gran % (Auto) 0.0 Neut % (Auto) 53.0 Lymph % (Auto) 37.0 [place] % (Auto) 4.9 Eos % (Auto) 4.8 Baso % (Auto) 0.3 Neut # (Auto) 3.97 Lymph # (Auto) 2.77 [place] # (Auto) 0.37 Eos # (Auto) 0.36 Baso # (Auto) 0.02 Immature Gran # (Auto) 0.00 Sodium 142 Potassium 4.0 Chloride 113 H Carbon Dioxide 27 Anion Gap 2.0 L BUN 10 Creatinine 0.84 Est Cr Clr Drug Dosing 97.9 Est GFR ( Amer) 98.0 Est GFR (Non-Af Amer) 84.5 BUN/Creatinine Ratio 12.5 Glucose 105 H Fasting Glucose Calcium 9.0 Total Bilirubin 0.3 AST 11 L ALT 25 Alkaline Phosphatase 51 Total Protein 7.4 Albumin 3.9 Globulin 3.5 Albumin/Globulin Ratio 1.1 Triglycerides Cholesterol LDL Cholesterol, Calc VLDL Cholesterol, Calc HDL Cholesterol Cholesterol/HDL Ratio TSH 0.611 HCG, Qual Urine Color Urine Appearance Urine pH Ur Specific [place] Urine Protein Urine Glucose (UA) Urine Ketones Urine Blood Urine Nitrite Urine Bilirubin Urine Urobilinogen Ur Leukocyte Esterase Salicylates 4.4 Urine Opiates Screen Ur Methadone, Qual Acetaminophen < 2 L Urine Barbiturates Ur Phencyclidine (PCP) U Amphetamin/Meth Scrn MDMA (Ecstasy) Screen U OH-Alprazolam Confrm U Benzodiazepines Scrn 7-Amino Clonazepam Ur Nordiazepam Confirm U OH-ethylflurazepam U Lorazepam Cnf GC/MS U Oxazepam Confm GC/MS Ur Temazepam Confirm U OH-Triazolam Confirm U OH-Midazolam Confirm Ur Cocaine Metabolite U Marijuana (THC) Screen U Marijuana THC Carboxy Drug Screen Comment Ethyl Alcohol mg/dL COVID-19 Eval Order SARS-CoV-2, RNA, NAAT 02/15/21 02/15/21 02/15/21 10:37 10:40 11:16 WBC RBC Hgb Hct MCV MCH MCHC RDW Std Deviation RDW Coeff of Yanet Plt Count MPV Immature Gran % (Auto) Neut % (Auto) Lymph % (Auto) [place] % (Auto) Eos % (Auto) Baso % (Auto) Neut # (Auto) Lymph # (Auto) [place] # (Auto) Eos # (Auto) Baso # (Auto) Immature Gran # (Auto) Sodium Potassium Chloride Carbon Dioxide Anion Gap BUN Creatinine Est Cr Clr Drug Dosing Est GFR ( Amer) Est GFR (Non-Af Amer) BUN/Creatinine Ratio Glucose Fasting Glucose Calcium Total Bilirubin AST ALT Alkaline Phosphatase Total Protein Albumin Globulin Albumin/Globulin Ratio Triglycerides Cholesterol LDL Cholesterol, Calc VLDL Cholesterol, Calc HDL Cholesterol Cholesterol/HDL Ratio TSH HCG, Qual Negative Urine Color Urine Appearance Urine pH Ur Specific [place] Urine Protein Urine Glucose (UA) Urine Ketones Urine Blood Urine Nitrite Urine Bilirubin Urine Urobilinogen Ur Leukocyte Esterase Salicylates Urine Opiates Screen Ur Methadone, Qual Acetaminophen Urine Barbiturates Ur Phencyclidine (PCP) U Amphetamin/Meth Scrn MDMA (Ecstasy) Screen U OH-Alprazolam Confrm U Benzodiazepines Scrn 7-Amino Clonazepam Ur Nordiazepam Confirm U OH-ethylflurazepam U Lorazepam Cnf GC/MS U Oxazepam Confm GC/MS Ur Temazepam Confirm U OH-Triazolam Confirm U OH-Midazolam Confirm Ur Cocaine Metabolite U Marijuana (THC) Screen U Marijuana THC Carboxy Drug Screen Comment Ethyl Alcohol mg/dL < 3.0 COVID-19 Eval [facility] SARS-CoV-2, RNA, NAAT 02/15/21 02/15/21 02/15/21 11:16 11:52 11:52 WBC RBC Hgb Hct MCV MCH MCHC RDW Std Deviation RDW Coeff of Yanet Plt Count MPV Immature Gran % (Auto) Neut % (Auto) Lymph % (Auto) [place] % (Auto) Eos % (Auto) Baso % (Auto) Neut # (Auto) Lymph # (Auto) [place] # (Auto) Eos # (Auto) Baso # (Auto) Immature Gran # (Auto) Sodium Potassium Chloride Carbon Dioxide Anion Gap BUN Creatinine Est Cr Clr Drug Dosing Est GFR ( Amer) Est GFR (Non-Af Amer) BUN/Creatinine Ratio Glucose Fasting Glucose Calcium Total Bilirubin AST ALT Alkaline Phosphatase Total Protein Albumin Globulin Albumin/Globulin Ratio Triglycerides Cholesterol LDL Cholesterol, Calc VLDL Cholesterol, Calc HDL Cholesterol Cholesterol/HDL Ratio TSH HCG, Qual Urine Color Yellow Urine Appearance Clear Urine pH 8.5 H Ur Specific [place] 1.008 Urine Protein Negative Urine Glucose (UA) Negative Urine Ketones Negative Urine Blood Negative Urine Nitrite Negative Urine Bilirubin Negative Urine Urobilinogen Negative Ur Leukocyte Esterase Negative Salicylates Urine Opiates Screen Neg Ur Methadone, Qual Neg Acetaminophen Urine Barbiturates Neg Ur Phencyclidine (PCP) Neg U Amphetamin/Meth Scrn Neg MDMA (Ecstasy) Screen Neg U OH-Alprazolam Confrm U Benzodiazepines Scrn Pos H 7-Amino Clonazepam Ur Nordiazepam Confirm U OH-ethylflurazepam U Lorazepam Cnf GC/MS U Oxazepam Confm GC/MS Ur Temazepam Confirm U OH-Triazolam Confirm U OH-Midazolam Confirm Ur Cocaine Metabolite Neg U Marijuana (THC) Screen Pos H U Marijuana THC Carboxy Drug Screen Comment Ethyl Alcohol mg/dL COVID-19 Eval Order SARS-CoV-2, RNA, NAAT NEGATIVE 02/15/21 02/18/21 11:52 09:00 WBC RBC Hgb Hct MCV MCH MCHC RDW Std Deviation RDW Coeff of Yanet Plt Count MPV Immature Gran % (Auto) Neut % (Auto) Lymph % (Auto) [place] % (Auto) Eos % (Auto) Baso % (Auto) Neut # (Auto) Lymph # (Auto) [place] # (Auto) Eos # (Auto) Baso # (Auto) Immature Gran # (Auto) Sodium Potassium Chloride Carbon Dioxide Anion Gap BUN Creatinine Est Cr Clr Drug Dosing Est GFR ( Amer) Est GFR (Non-Af Amer) BUN/Creatinine Ratio Glucose Fasting Glucose 104 H Calcium Total Bilirubin AST ALT Alkaline Phosphatase Total Protein Albumin Globulin Albumin/Globulin Ratio Triglycerides 145 Cholesterol 186 LDL Cholesterol, Calc 102 VLDL Cholesterol, Calc 29 HDL Cholesterol 55 Cholesterol/HDL Ratio 3 TSH HCG, Qual Urine Color Urine Appearance Urine pH Ur Specific [place] Urine Protein Urine Glucose (UA) Urine Ketones Urine Blood Urine Nitrite Urine Bilirubin Urine Urobilinogen Ur Leukocyte Esterase Salicylates Urine Opiates Screen Ur Methadone, Qual Acetaminophen Urine Barbiturates Ur Phencyclidine (PCP) U Amphetamin/Meth Scrn MDMA (Ecstasy) Screen U OH-Alprazolam Confrm NEGATIVE U Benzodiazepines Scrn 7-Amino Clonazepam 30 H Ur Nordiazepam Confirm 331 H U OH-ethylflurazepam NEGATIVE U Lorazepam Cnf GC/MS NEGATIVE U Oxazepam Confm GC/MS 564 H Ur Temazepam Confirm 558 H U OH-Triazolam Confirm NEGATIVE U OH-Midazolam Confirm NEGATIVE Ur Cocaine Metabolite U Marijuana (THC) Screen U Marijuana THC Carboxy 190 H Drug Screen Comment SEE NOTE Ethyl Alcohol mg/dL COVID-19 Eval Order SARS-CoV-2, RNA, NAAT Hospital Course (1) Anxiety: This patient is admitted to the [address] [place] [address] mental health unit she is currently on every 15 minute checks for behavior with suicide precautions for safety this patient will participate in group recreational milieu therapies will be offered additional individual and family sessions as clinically appropriateWe will continue clonazepam at the low dose of 0.5 mg twice daily patient understands the risks of sedation and addiction and also understands the benefits. (2) Major depression, recurrent, chronic: 02/17/21- admission - This patient is admitted to the [address] [place] [address] mental [facility] unit she is currently on every 15 minute checks for behavior with suicide precautions for safety this patient will participate in group recreational milieu therapies will be offered additional individual and family sessions as clinically appropriate. Given her current paranoia we will consider starting a low-dose antipsychotic such as Vraylar which patient reports never hearing of patient also interested in starting lithium we will start a low-dose lithium 300 mg labs reviewed patient understands the risks and benefits of lithium risk including hypothyroidism and acute problems with her kidneys Consider consult for ECT 02/22/21-patient continues to do well she is future oriented to services in the community. She reports having things to do bills to pay. 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 She denies suicidal thoughts denies homicidal thoughts denies hallucinations auditory or visual there is no evidence of response to internal stimuli. At this point patient is stable for discharge. 02/21/2021- Patient feels that she is doing better she is able to discuss coping strategies she can use in the community, she is future oriented to going to confucian[employer] on Thursday developing more friends and in increasing her social [place] she understands that she does need to stay in treatment she is excited about hopefully being considered as an option for TMS. 02/20/2021 patient has felt better after Latuda has been discontinued she really feels more awake per patient she denies side effects from lithium we will check lithium level lithium dose is currently very low. At this point unclear if there is any need to increase patient denies suicidal ideation while in the hospital we will continue to monitor giving her past history of significant illness. 02/19/2021 patient reports some side effects from Latuda and is ambivalent about continuing Latuda on the outside will discontinue Latuda patient is doing well with just the lithium consider serotonin SSRI as adjunct. Patient remains chronically suicidal for inpatient hospitalization is still necessary to continue to evaluate given the seriousness of her overdose attempts in the past 02/18/21- Increased lithium ongoing thoughts of - recomendations or TMS - given 02/17/21 [place] changed to morning Latuda added as Adjunct at night - 40mg - daily with meals. Risks and Benefis of Antipsychotics discussed (3) Suicidal ideation: Patient is currently on every 15 minute checks. Patient is jad for safety in the hospital even though she admits to ongoing suicidal thoughts patient denies having a plan in the hospital. Will also start lithium discussed the risk and benefits this will help minimize patient's suicidal thoughts. 02/17/21- reports ongoing chronic thoughts of suicide - contracts for safety in the hospital Mental Health & Subst Abuse Tx Therapist Name of Therapist: [facility] - Staci Therapist's Date of Therapist Appointment: 03/01/21 Time of Therapist Appointment: 11am Therapy Appointment Comment: [address] [place] [address] [facility] Name of Rodbuster: ANTONIETTA Ross Phone Number for Rodbuster: [phone] Date of Appointment with Rodbuster: 02/26/21 Time of Appointment with Rodbuster: 1:30 p.m. Case Management Appointment Comment: Will also call you on Thursday, 02/25, to check in Post Discharge Appointments Primary Care Physician Name Of Family Doctor: [facility] - Dr Whitfield Primary [facility] Date of Appointment with PCP: 02/26/21 Time of Appointment with PCP: 10:30 a.m. Provider Appointment Comment: [address], [address], [place] Contact Information Discharge Discharge [address]: [address] [place] [address], [address] [address] Discharge Plan Discharge Items Patient Disposition: Home - Self-Care Reason For Visit: SUICIDAL IDEATION Discharge Diagnosis: Mood disorder unspecified Activity: Resume your previous activity Non-emergency contact: Primary Care Provider Call non-emergency contact if: you have any medication questions and your symptoms worsen Follow-up/Referrals: Yannick Whitfield MD [Primary Care Provider] - Diet: Regular Addtl Attending Provider Instructions: SPECIAL CARE INSTRUCTIONS: 1. Follow through with your scheduled aftercare appointments. If unable to keep an appointment, please call to reschedule. 2. Take your medication only as prescribed. Medication should not be changed or stopped without the approval of your doctor. In the event of worsening symptoms or concerns about side effects, contact your doctor immediately. 3. Utilize new healthy coping skills, anger management skills, and stress management skills learned during your hospitalization. Journal feelings and process them with a support person. Identify stressors or situations that may result in relapse, deterioration or inappropriate behaviors and develop a plan to deal with those issues. 4. If your coping skills are ineffective and you are in crisis, contact your outpatient providers for direction. If unable to reach your providers, please call the [facility] CRISIS LINE AT , go to the [facility] walk-in center at [address], [address], [place], or go to the closest Emergency Room. 5. Avoid alcohol and un-prescribed drugs. 6. You have been provided with the Mental Health Advance Directives Pamphlet for your review. AFTERCARE APPOINTMENTS: * Please call your insurance company prior to your scheduled appointment to confirm your aftercare providers are covered. Take your insurance information to your appointments. WHO TO CALL AND WHEN: Medical Emergencies: For questions or emergencies related to your hospital stay, please contact the Inpatient Behavioral Health Unit at [phone]. A frame straightener is on-call 27/04 for the Behavioral Health Unit for emergencies At any time you feel your situation is an emergency, you may also call 911 immediately. Pending Studies at Discharge: No Stand-Alone Forms: My [facility], Smoking Cessation Medications and DC Order Prescriptions: New aripiprazole [Abilify] 5 mg Tablet 2.5 mg PO QAM 30 Days Qty: 0 RF: 1 clonazepam 0.5 mg Tablet 0.5 mg PO BID Qty: 30 RF: 1 hydroxyzine HCl 25 mg Tablet 50 mg PO HSZ PRN (Reason: anxiety) 30 Days Qty: 60 RF: 0 lithium carbonate 300 mg Tablet 600 mg PO QAM 15 Days Qty: 30 RF: 3 Continued albuterol sulfate [Ventolin HFA] 90 mcg/actuation Hfa Aerosol Inhaler 2 puff INHALATION Q6H PRN (Reason: Shortness Of Breath Or Wheezing) RF: 0 Low-Ogestrel (28) 0.3-30 mg-mcg Tablet 1 tab PO DAILY RF: 0 Discontinued clonazepam 0.5 mg Tablet 0.5 mg PO BID PRN (Reason: Anxiety) Qty: 30 RF: 1 Discharge Orders: Discharge Order (Routine); Ordered 02/22/21 Ordered By: Libra Rodrigues Admission Data Admit Date/Time: 02/15/21 14:36 Attending Provider: Libra Rodrigues Admit Provider: Jose Green Primary Care Provider: Yannick Whitfield Other Interventions: PSY Interdisciplinary Discharge Planning Last Done: 02/22/21 10:25 Coding Level of Care Code 93798 D/C day mgmt 30 min or < Diagnoses Anxiety F41.9 Major depression, recurrent, chronic F33.9 Suicidal ideation R45.851
== END 2021-02-22 11:49 | disposition home or self-care (01) | DRG 885 ==
LOC: ED 10:19 → 3S 14:28

== ENCOUNTER 2022-11-13 17:20 | Inpatient (IN) ==
--- NOTE | 2022-11-13 17:39 | Emergency Department Note ---
Impression & Plan Depression with suicidal ideation ED Provider Note NAME: ROOSEVELT VARGAS AGE: 47 SEX: F : 1975 ARRIVES VIA: Walk-In INFORMANT: Patient, ED PROVIDER(S): Arnaud Gaytan MD CHIEF COMPLAINT: Depressed mood, suicidal ideation MEDICAL DECISION MAKING: Patient presents due to concern for depressed mood and associated suicidal ideation. The patient did have bladder completed with the medically cleared seen and evaluated by psych special education case manager and referrals were made for inpatient treatment. The patient was accepted to [facility] for inpatient treatment. Prior /Outside records reviewed: I did review the patient's discharge summary from September 2018 with the patient did take Tylenol PM with alcohol benzos and THC the patient did require intubation at that time. Differential diagnosis: Mood disorder, infection, hypoglycemia, electrolyte abnormalities, cardiac sources, intracerebral event, toxicologic, trauma, neurologic, as well as other pathologies. HPI: Patient presents due to concern for depressed mood with associated suicidal ideation. The patient has thought about killing herself by overdosing on Tylenol PM. The patient states that she last tried to do the same back in 2018. Patient does feel unsafe with regard to somebody that she had recently been dating as she thinks that she discover that they might be a child predator pedophile and had notified law enforcement. She states that this person is supposed to return from [place] today and was concerned for her wellbeing. Patient denies any HI or AVH. The patient does smoke tobacco and has a medical marijuana card. No drug use or alcohol use otherwise. Patient denies any nausea vomiting. Patient is unemployed and not in school but does have a masters degree. The patient states that her sleep has been okay as well as her appetite. The patient does not have any access to guns or weapons. The patient does not currently feel safe at home. PAST MEDICAL HISTORY: See Below PAST SURGICAL HISTORY: See Below SOCIAL HISTORY: See Below HOME MEDICATIONS: See Below ALLERGIES: See Below VITALS: See Below PHYSICAL EXAMINATION: GENERAL: NAD, wearing a mask, non-toxic. Wearing glasses. EYE EXAM: Normal conjunctiva. PERRL, no anisocoria and EOM's grossly intact w/o pain. NECK: Supple, no nuchal rigidity, no adenopathy, non-tender. No signs of meningismus. FROM of the neck with good chin to chest and neck extension. No stridor. LUNGS: Clear to auscultation. Normal chest wall mechanics. HEART: NSR, no MRG. ABDOMEN: Abdomen soft, non-tender, normo-active bowel sounds, no masses, no rebound or guarding. BACK: No CVA TTP. SKIN: No rashes and no bruising. UPPER EXTREMITIES: Upper extremities are grossly normal. LOWER EXTREMITIES: Grossly normal, no edema. NEURO EXAM: A&O x3, cranial nerves II-XII grossly intact, normal speech, moves all 4 extremities. Psych: Positive SI, negative HI or AVH. 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) Hyperventilation syndrome Overdose by acetaminophen (03/15/14) Polysubstance overdose Rhabdomyolysis Sepsis Suicidal ideation Vaginal yeast infection Weakness Family History Brother Depression Father Depression Mother Depression Other Cancer Social History Smoking Status: Current some day smoker Tobacco Type: Cigarettes Hx Alcohol Use: Yes Alcohol type: other Preferred Language: Japanese Communication Ability: Effective Visual Impairment: Partially Limited Hearing Ability: Normal Montessori Program Director Required: No Beliefs That Will Affect Care: None marital status: Single Current Living Situation: Alone Current Living Situation Comment: with landlord current occupational status: unemployed Feels Safe at Home: No Gender Identity: Female Assistive Devices: Glasses Allergies Allergies Allergy/AdvReac Type Severity Reaction Status Date / Time animal dander Allergy Unknown Unknown Verified 02/18/21 14:27 tetanus toxoid, adsorbed Allergy Unknown Unknown Verified 02/15/21 11:23 Home Meds Home Medications Medication Instructions Recorded Confirmed albuterol sulfate 90 mcg/actuation 2 puff inhalation Q6H PRN 09/24/18 11/13/22 aerosol inhaler (Ventolin HFA) Shortness Of Breath Or Wheezing norgestrel 0.3 mg-ethinyl 1 tab PO DAILY 02/15/21 11/13/22 estradiol 30 mcg tablet (Low-Ogestrel (28)) alprazolam 0.5 mg PO QID PRN Anxiety 11/16/22 02/09/23 bupropion HCl 100 mg tablet,12 hr 100 mg PO DAILY 11/13/22 11/13/22 sustained-release (Wellbutrin SR) Results & Data (ED) Vital Signs Vital Signs - 24 hr 11/13/22 21:02 Temperature 36.8 C Temperature Source Oral Pulse Rate [Left Finger] 87 Pulse Rhythm [Left Finger] Regular Pulse Strength [Left Finger] Normal Respiratory Rate 19 Respiratory Effort / Characteristics Non-Labored Spontaneous Respiratory Depth Normal Respiratory Pattern Regular Blood Pressure [Right Arm] 126/75 Blood Pressure Mean [Right Arm] 92 Blood Pressure Position [Right Arm] Sitting Pulse Oximetry 99 Oxygen Delivery Method Room Air Home Medications Current Medication List: was personally reviewed by me Laboratory Data Attestation: I reviewed the patient's lab results. 11/13/22 19:08 11/13/22 19:08 Lab Results 11/13/22 11/13/22 11/13/22 Range/Units 18:21 19:08 19:08 WBC 13.78 H (4.8-10.8) K/ul RBC 3.94 L (4.20-5.40) M/uL Hgb 13.1 (12.0-16.0) g/dl Hct 37.6 (37.0-47.0) % MCV 95.4 (80.0-100.0) fL MCH 33.2 (25.0-34.0) pg MCHC 34.8 (32.0-36.0) g/dL RDW Std Deviation 43.7 (36.4-46.3) fL RDW Coeff of [place] 12.5 (11.5-14.5) % Plt Count 271 (130-400) K/uL MPV 9.9 (9.4-12.4) fL Immature Gran % (Auto) 0.3 % Neut % (Auto) 67.3 % Lymph % (Auto) 22.9 % [place] % (Auto) 3.7 % Eos % (Auto) 5.5 % Baso % (Auto) 0.3 % Neut # (Auto) 9.28 H (1.40-6.50) K/uL Lymph # (Auto) 3.15 (1.2-3.4) K/uL [place] # (Auto) 0.51 (0.11-0.59) K/uL Eos # (Auto) 0.76 H (0-0.50) K/uL Baso # (Auto) 0.04 (0-0.2) K/uL Immature Gran # (Auto) 0.04 (0.01-0.20) K/uL Sodium 142 (136-145) mmol/L Potassium 3.7 (3.5-5.1) mmol/L Chloride 110 H (98-107) mmol/L Carbon Dioxide 29 (21-32) mmol/L Anion Gap 3 (3-11) BUN 14 (6-23) mg/dl Creatinine 0.75 (0.6-1.2) mg/dl Est Cr Clr Drug Dosing Not Reportable Est GFR ( Amer) 111.6 ml/min Est GFR (Non-Af Amer) 96.3 ml/min BUN/Creatinine Ratio 18.7 (10-20) Glucose 82 (70-99(Fasting)) mg/dl Calcium 8.7 (8.5-10.1) mg/dl Total Bilirubin 0.4 (0.2-1.0) mg/dl AST 13 (13-39) U/L ALT 10 (7-52) U/L Alkaline Phosphatase 46 (34-104) U/L Total Protein 6.4 (6.0-8.3) gm/dl Albumin 3.9 (3.4-5.0) gm/dl Globulin 2.5 (2.5-4.0) gm/dl Albumin/Globulin Ratio 1.6 (0.9-2) TSH (0.300-4.500) uIu/ml Urine Color Urine Appearance (Clear) Urine pH (4.5-7.5) Ur Specific [place] (1.000-1.030) Urine Protein (Negative) Urine Glucose (UA) (Negative) Urine Ketones (Negative) Urine Blood (Negative) Urine Nitrite (Negative) Urine Bilirubin (Negative) Urine Urobilinogen (Negative) Ur Leukocyte Esterase (Negative) Urine WBC (Auto) (0-5) /hpf Urine RBC (Auto) (0-4) /hpf U Hyaline Cast (Auto) (0-5) /lpf U Epithel Cells (Auto) (0-5) /lpf Urine Bacteria (Auto) (Negative) Urine Test (Negative) Salicylates (3.0-30) mg/dl Urine Opiates Screen (Neg) Ur Methadone, Qual (Neg) Acetaminophen (10-30) ug/ml Urine Barbiturates (Neg) Ur Phencyclidine (PCP) (Neg) U Amphetamin/Meth Scrn (Neg) MDMA (Ecstasy) Screen (Neg) U Benzodiazepines Scrn (Neg) Ur Cocaine Metabolite (Neg) U Marijuana (THC) Screen (Neg) Ethyl Alcohol mg/dL (<10.0) mg/dl SARS-CoV-2, RNA, NAAT NEGATIVE (NEGATIVE) 11/13/22 11/13/22 11/13/22 Range/Units 19:08 19:08 19:08 WBC (4.8-10.8) K/ul RBC (4.20-5.40) M/uL Hgb (12.0-16.0) g/dl Hct (37.0-47.0) % MCV (80.0-100.0) fL MCH (25.0-34.0) pg MCHC (32.0-36.0) g/dL RDW Std Deviation (36.4-46.3) fL RDW Coeff of Yan[place] (11.5-14.5) % Plt Count (130-400) K/uL MPV (9.4-12.4) fL Immature Gran % (Auto) % Neut % (Auto) % Lymph % (Auto) % [place] % (Auto) % Eos % (Auto) % Baso % (Auto) % Neut # (Auto) (1.40-6.50) K/uL Lymph # (Auto) (1.2-3.4) K/uL [place] # (Auto) (0.11-0.59) K/uL Eos # (Auto) (0-0.50) K/uL Baso # (Auto) (0-0.2) K/uL Immature Gran # (Auto) (0.01-0.20) K/uL Sodium (136-145) mmol/L Potassium (3.5-5.1) mmol/L Chloride (98-107) mmol/L Carbon Dioxide (21-32) mmol/L Anion Gap (3-11) BUN (6-23) mg/dl Creatinine (0.6-1.2) mg/dl Est Cr Clr Drug Dosing Est GFR ( Amer) ml/min Est GFR (Non-Af Amer) ml/min BUN/Creatinine Ratio (10-20) Glucose (70-99(Fasting)) mg/dl Calcium (8.5-10.1) mg/dl Total Bilirubin (0.2-1.0) mg/dl AST (13-39) U/L ALT (7-52) U/L Alkaline Phosphatase (34-104) U/L Total Protein (6.0-8.3) gm/dl Albumin (3.4-5.0) gm/dl Globulin (2.5-4.0) gm/dl Albumin/Globulin Ratio (0.9-2) TSH 0.900 (0.300-4.500) uIu/ml Urine Color Urine Appearance (Clear) Urine pH (4.5-7.5) Ur Specific [place] (1.000-1.030) Urine Protein (Negative) Urine Glucose (UA) (Negative) Urine Ketones (Negative) Urine Blood (Negative) Urine Nitrite (Negative) Urine Bilirubin (Negative) Urine Urobilinogen (Negative) Ur Leukocyte Esterase (Negative) Urine WBC (Auto) (0-5) /hpf Urine RBC (Auto) (0-4) /hpf U Hyaline Cast (Auto) (0-5) /lpf U Epithel Cells (Auto) (0-5) /lpf Urine Bacteria (Auto) (Negative) Urine Test (Negative) Salicylates < 3.0 L (3.0-30) mg/dl Urine Opiates Screen (Neg) Ur Methadone, Qual (Neg) Acetaminophen < 3 L (10-30) ug/ml Urine Barbiturates (Neg) Ur Phencyclidine (PCP) (Neg) U Amphetamin/Meth Scrn (Neg) MDMA (Ecstasy) Screen (Neg) U Benzodiazepines Scrn (Neg) Ur Cocaine Metabolite (Neg) U Marijuana (THC) Screen (Neg) Ethyl Alcohol mg/dL < 10.0 (<10.0) mg/dl SARS-CoV-2, RNA, NAAT (NEGATIVE) 11/13/22 11/13/22 11/13/22 Range/Units 20:56 20:56 20:56 WBC (4.8-10.8) K/ul RBC (4.20-5.40) M/uL Hgb (12.0-16.0) g/dl Hct (37.0-47.0) % MCV (80.0-100.0) fL MCH (25.0-34.0) pg MCHC (32.0-36.0) g/dL RDW Std Deviation (36.4-46.3) fL RDW Coeff of Yanet (11.5-14.5) % Plt Count (130-400) K/uL MPV (9.4-12.4) fL Immature Gran % (Auto) % Neut % (Auto) % Lymph % (Auto) % [place] % (Auto) % Eos % (Auto) % Baso % (Auto) % Neut # (Auto) (1.40-6.50) K/uL Lymph # (Auto) (1.2-3.4) K/uL [place] # (Auto) (0.11-0.59) K/uL Eos # (Auto) (0-0.50) K/uL Baso # (Auto) (0-0.2) K/uL Immature Gran # (Auto) (0.01-0.20) K/uL Sodium (136-145) mmol/L Potassium (3.5-5.1) mmol/L Chloride (98-107) mmol/L Carbon Dioxide (21-32) mmol/L Anion Gap (3-11) BUN (6-23) mg/dl Creatinine (0.6-1.2) mg/dl Est Cr Clr Drug Dosing Est GFR ( Amer) ml/min Est GFR (Non-Af Amer) ml/min BUN/Creatinine Ratio (10-20) Glucose (70-99(Fasting)) mg/dl Calcium (8.5-10.1) mg/dl Total Bilirubin (0.2-1.0) mg/dl AST (13-39) U/L ALT (7-52) U/L Alkaline Phosphatase (34-104) U/L Total Protein (6.0-8.3) gm/dl Albumin (3.4-5.0) gm/dl Globulin (2.5-4.0) gm/dl Albumin/Globulin Ratio (0.9-2) TSH (0.300-4.500) uIu/ml Urine Color Yellow Urine Appearance Cloudy A (Clear) Urine pH 7.5 (4.5-7.5) Ur Specific [place] 1.015 (1.000-1.030) Urine Protein Negative (Negative) Urine Glucose (UA) Negative (Negative) Urine Ketones Negative (Negative) Urine Blood Negative (Negative) Urine Nitrite Negative (Negative) Urine Bilirubin Negative (Negative) Urine Urobilinogen Negative (Negative) Ur Leukocyte Esterase Negative (Negative) Urine WBC (Auto) 1-5 (0-5) /hpf Urine RBC (Auto) 0-4 (0-4) /hpf U Hyaline Cast (Auto) 1-5 (0-5) /lpf U Epithel Cells (Auto) 20-30 H (0-5) /lpf Urine Bacteria (Auto) Negative (Negative) Urine Test Negative (Negative) Salicylates (3.0-30) mg/dl Urine Opiates Screen Neg (Neg) Ur Methadone, Qual Neg (Neg) Acetaminophen (10-30) ug/ml Urine Barbiturates Neg (Neg) Ur Phencyclidine (PCP) Neg (Neg) U Amphetamin/Meth Scrn Neg (Neg) MDMA (Ecstasy) Screen Neg (Neg) U Benzodiazepines Scrn Pos H (Neg) Ur Cocaine Metabolite Neg (Neg) U Marijuana (THC) Screen Pos H (Neg) Ethyl Alcohol mg/dL (<10.0) mg/dl SARS-CoV-2, RNA, NAAT (NEGATIVE) Administered Medications Albuterol (Albuterol Hfa 8 Gm Inhaler) 2 puffs INH Q6 PRN PRN Reason: Shortness Of Breath Stop: 12/14/22 06:49 Last Admin: 11/14/22 07:00 Dose: 2 puffs Documented By: EW Clonazepam (Clonazepam 0.5 Mg Tab) 0.5 mg PO BID PRN PRN Reason: panic attacks Stop: 12/14/22 14:48 Last Admin: 11/14/22 14:57 Dose: 0.5 mg Documented By: VS Co-signed By: TLF Non-Formulary Medication (Non-Formulary Patient's Own Med) 1 each PO DAILY MARY Stop: 12/14/22 12:14 Last Admin: 11/14/22 12:19 Dose: 1 each Documented By: JORGE Discontinued Medications Alprazolam (Alprazolam 0.5 Mg Tablet) 0.5 mg PO BID PRN PRN Reason: Anxiety/Agitation Stop: 12/13/22 23:25 Last Admin: 11/14/22 08:49 Dose: 0.5 mg Documented By: Admin: 11/13/22 23:49 Dose: 0.5 mg Documented By: EW Discharge Plan Visit Data Chief Complaint: Mental Health Evaluation Stated Complaint: DEPRESSION,FEELS UNSAFE ED Provider: Arnaud Gaytan Discharge Problem: Depression with suicidal ideation Patient Disposition: Admitted As Inpatient Discharge Instructions Interventions: ED Discharge Assessment Last Done: 11/13/22 23:18
[2022-11-13 19:20] LABS: Basophils # (auto) 0.04 K/uL (0-0.2); Basophils % (auto) 0.3 %; Eosinophils # (auto) 0.76 K/uL (0-0.50); Eosinophils % (auto) 5.5 %; Hematocrit (blood only) 37.6 % (37.0-47.0); Hemoglobin 13.1 g/dl (12.0-16.0); Immature Granulocytes # (auto) 0.04 K/uL (0.01-0.20); Immature Granulocytes % (auto) 0.3 %; Lymphocytes # (auto) 3.15 K/uL (1.2-3.4); Lymphocytes % (auto) 22.9 %; Mean Corpuscular Hemoglobin 33.2 pg (25.0-34.0); Mean Corpuscular Hgb Conc 34.8 g/dL (32.0-36.0); Mean Corpuscular Volume 95.4 fL (80.0-100.0); Mean Platelet Volume 9.9 fL (9.4-12.4); Monocytes # (auto) 0.51 K/uL (0.11-0.59); Monocytes % (auto) 3.7 %; Neutrophils # (auto) 9.28 K/uL (1.40-6.50); Neutrophils % (auto) 67.3 %; Platelet Count 271 K/uL (130-400); RDW Coefficient of Variation 12.5 % (11.5-14.5); RDW Standard Deviation 43.7 fL (36.4-46.3); Red Blood Count 3.94 M/uL (4.20-5.40); White Blood Count 13.78 K/ul (4.8-10.8)
[2022-11-13 19:40] LABS: Alanine Aminotransferase 10 U/L (7-52); Albumin Globulin Ratio 1.6 (0.9-2); Albumin Level 3.9 gm/dl (3.4-5.0); Alkaline Phosphatase 46 U/L (34-104); Anion Gap 3 (3-11); Aspartate Aminotransferase 13 U/L (13-39); BUN Creatinine Ratio 18.7 (10-20); Bilirubin,Total 0.4 mg/dl (0.2-1.0); Blood Urea Nitrogen 14 mg/dl (6-23); Calcium 8.7 mg/dl (8.5-10.1); Carbon Dioxide 29 mmol/L (21-32); Chloride 110 mmol/L (98-107); Est GFR (African American) 111.6 ml/min; Est GFR (Non-African American) 96.3 ml/min; Globulin 2.5 gm/dl (2.5-4.0); Glucose 82 mg/dl (70-99(Fasting)); Potassium 3.7 mmol/L (3.5-5.1); Sodium 142 mmol/L (136-145); Total Protein 6.4 gm/dl (6.0-8.3)
[2022-11-13 19:58] LABS: Acetaminophen < 3 ug/ml (10-30); Salicylate < 3.0 mg/dl (3.0-30)
[2022-11-13 21:09] LABS: Pregnancy Test, Urine Negative (Negative)
[2022-11-13 21:11] LABS: Appearance Urine Cloudy (Clear); Bacteria Urine Automated Negative (Negative); Bilirubin Urine Negative (Negative); Blood Urine Negative (Negative); Color Urine Yellow; Epithelial Cell Urine Auto 20-30 /lpf (0-5); Glucose Urine UA Negative (Negative); Ketones Urine Negative (Negative); Leukocyte Esterase Urine Negative (Negative); Nitrite Urine Negative (Negative); Protein Urine Negative (Negative); RBC Urine Automated 0-4 /hpf (0-4); Specific Gravity Urine 1.015 (1.000-1.030); Urobilinogen Urine Negative (Negative); pH Urine 7.5 (4.5-7.5)
[2022-11-13 21:55] LABS: Amphetamines+Metham, Urine Neg (Neg); Barbiturates, Urine Neg (Neg); Benzodiazepine, Urine Pos (Neg); Cocaine, Urine Neg (Neg); MDMA (Ecstacy), Urine Neg (Neg); Methadone, Urine Neg (Neg); Opiate, Urine Neg (Neg); Phencyclidine, Urine Neg (Neg)
[2022-11-13] MEDS ORDERED: hydrOXYzine HCl 25 MG TAB PO PRN (22:39)
[2022-11-13] MEDS ORDERED: ALUMINUM/MAGNESIUM SUSP 30 ML UDC PO PRN (22:39)
[2022-11-13] MEDS ORDERED: ACETAMINOPHEN 325 MG TAB PO PRN (22:39)
[2022-11-13] MEDS ORDERED: SODIUM CHLORIDE 0.65% NA SOLN 45 ML (OCEAN) PRN (22:39)
[2022-11-13] MEDS ORDERED: MAGNESIUM HYDROXIDE SUSP 30 ML UDC PO PRN (22:39)
[2022-11-13] MEDS ORDERED: BISMUTH SUBSALICYLATE LIQD 236 ML PO PRN (22:39)
[2022-11-13] MEDS: ALPRAZolam 0.5 MG TABLET PO PRN (23:49)
[2022-11-14] MEDS ORDERED: ALBUTEROL HFA 8 GM INHALER INH PRN ×2 (06:40→11:10)
[2022-11-14] MEDS: ALBUTEROL HFA 8 GM INHALER INH PRN ×2 (07:00→19:49)
--- NOTE | 2022-11-14 08:36 | History & Physical ---
Date of Service November 14, 2022 Impression / Recommendations Impression Roosevelt is a 47 year old woman with a history of MDD, KJ, PTSD, BPD, body dysmorphia who was admitted for SI with plan of overdosing and significant paranoia related to an ex-boyfriend. Diagnostically unclear at this time, differential is broad including MDD with psychotic features vs complex PTSD vs cannabis induced psychosis/mood changes vs delusional disorder vs reality-based response with subsequent worsening of depression. She is deemed in need of psychiatric hospitalization for diagnostic clarification, safety and stabilization, medication management and development of further coping skills. MNPR due to distressing symptoms and paranoia (1) Depression with suicidal ideation: (2) Unspecified psychosis not due to a substance or known physiological condition: (3) Cannabis use disorder: (4) Post traumatic stress disorder (PTSD): Plan 11/14/2022: The patient was admitted to the [facility] ([facility]) on q15 min checks (behavioral with suicide precautions) for safety. The patient will participate in group, recreational, and milieu therapies and will be offered additional individual and family sessions as clinically appropriate. -Hold Wellbutrin given dopaminergic effects can worsen paranoia/axniety -Switch from Xanax 0.5mg QID prn to longer acting Klonopin 0.5mg BID prn given lower abuse potential with goal of ongoing taper to discontinuation (or only few doses per month for use for severe panic attacks) -Consider antipsychotic trial, will gather further collateral and monitor symptoms for now Inventory Assets Strengths: supportive relationships, willing to get treatment Needs: safety and stabilization, medication adjustment, additional coping skills, increased outpatient services Suicide Risk Level Suicide Risk Level: High-Moderate (q15 min suicide checks) (due to severe depression with SI with plan and paranoia prior to admission but feels safe in the hospital, able to safety contract and agrees to let nursing/staff know should they develop plan, intent or feel unable to remain safe.) Suicide Risk Level Comments: Risk Factors Assessment : Yes Do You Have Access To A Gun?: No Mental Health Diagnoses: Yes Previous Attempt: Yes Family History of Suicide: No Previous Psychiatric Hospitalization: Yes Protective Factors Assessment Employed: No Stable Relationships: Yes Good Rapport with Provider: Yes Psychiatric History Identifying Data ROOSEVELT VARGAS is a 47-year-old F who currently lives in [place] alone, has a history of major depression, PTSD, anxiety and body dysmorphia, and was admitted on 11/13/22 22:39 on a 201 voluntary commitment for depression with SI with plan of overdosing and paranoia . Chief Complaint "I've been really stressed and I felt unsafe at home". History of Present Illness She presents for psychiatric admission for worsening depression and paranoia that her ex-boyfriend is going to kill her. She describes multiple recent psychosocial stressors including financial strain/significant debt as well as recently discovering that her now ex-boyfriend of a few months may be involved with some type of international sex trafficking ring. This revealtion has caused her to go into "a state of shock" and she no longer felt safe at home due to concerns he may try to kill her. She ended things with him a few days ago after discovering he had an unknown [employer] account with odd artwork and "creep images that allude to him being a predator". She reported this to the [place] police and describes since talking to the [employer]. She has been fearful to use her phone as this ex-boyfriend works at [employer], and also travels internationally, and "he's a hacker" so she fears he could retrieve her messages. She notes "I know this sounds paranoid but I swear it's true". Even know she feels he is "enough of a sociopath" that she fears he may try to "slip something under the crack of my door to kill me pets". She was recently started on Wellbutrin (per review of med rec appears to be Wellbutrin SR 100mg daily) by her primary care provider. She also takes Xanax QID prn for anxiety and feels "this is absolutely necessary". Endorses worsened depression and SI with thoughts of overdosing on acetaminophen prior to coming to the hospital due to her fear. Endorses significant trauma history and feels these events have triggered her PTSD symptoms. Tearful describing how she is always taken advantage of or finds bad partners in relationships. Sleep has been stable. Psychiatric ROS notable for no current nor history of symptoms of mani, OCD nor eating disorder. Past Psychiatric History Current Psychiatric Diagnosis: Unspecified mood d/o Outpatient Services: medications through [facility] at PCP office, certified hand therapist Kylee via [facility], outpatient classification case manager Previous Psych Admissions: multiple, most recently [facility] in February 2021; hx ECT in the past Do You Have Access To A Gun?: No History of Previous Suicide Attempt: Yes Describe Attempts in the Past: overdose on acetaminophen in 2017, other prior attempts via overdose Past Medication Trials: recalls Salome and "many others", hx ECT Past Head Trauma/Neuro History History of Concussion/Seizure: No Allergies Allergy/AdvReac Type Severity Reaction Status Date / Time animal dander Allergy Unknown Unknown Verified 02/18/21 14:27 tetanus toxoid, adsorbed Allergy Unknown Unknown Verified 02/15/21 11:23 Home Medications Medication Instructions Recorded Confirmed Type albuterol sulfate 90 mcg/actuation 2 puff inhalation Q6H PRN 09/24/18 11/13/22 History aerosol inhaler (Ventolin HFA) Shortness Of Breath Or Wheezing norgestrel 0.3 mg-ethinyl 1 tab PO DAILY 02/15/21 11/13/22 History estradiol 30 mcg tablet (Low-Ogestrel (28)) alprazolam 0.5 mg PO QID PRN Anxiety 08/20/22 11/13/22 History bupropion HCl 100 mg tablet,12 hr 100 mg PO DAILY 11/13/22 11/13/22 History sustained-release (Wellbutrin SR) Family History Family History of: Doesn't Know Alcohol History Hx of Alcohol Use Over the Past 12 Months: Yes (rarely) AUDIT Total Score: 1 very rare use Smoking Use Have You Smoked or Used Tobacco Products in the Last 30 Days: Yes tobacco type: cigarettes Smoking Status: Current some day smoker Smoking packs per day: 0.25 Substance History Hx of Prescription Med Misuse Over the Past 12 Months: No Hx of Over the Counter Med Misuse Over the Past 12 Months: No Hx of Inhalent Misuse Over the Past 12 Months: No Hx of Organic Substance Use Over the Past 12 Months: Yes (medical marijuana) Hx of Illegal Substances/Street Drug Use Over Past 12 Months: No Problems as a Result of Past Substance Use: None Identified Cannabis use Personal History Living Arrangements: Apartment Born In: [place], [place] Highest Grade Completed: Graduate School Employment Status: Disabled Marital Status: Single Beliefs That Will Affect Care: None Current Legal Problems: No Hx Legal Problems: No Hx Traumatic Life Events: Yes Psychological Trauma History Comment: significant childhood trauma Patient History Medical History Admitted to intensive care unit (Unknown) Anemia Anxiety Bilateral breast implants (01/22/13) Depression Fever (04/25/14) 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) Hyperventilation syndrome Overdose by acetaminophen (03/15/14) Polysubstance overdose Rhabdomyolysis Sepsis Suicidal ideation Vaginal yeast infection Weakness Family History Brother Depression Father Depression Mother Depression Other Cancer Social History Smoking Status: Current some day smoker Tobacco Type: Cigarettes Hx Alcohol Use: Yes Alcohol type: other Preferred Language: Telugu Communication Ability: Effective Visual Impairment: Partially Limited Hearing Ability: Normal Clinical Supervisor Required: No Beliefs That Will Affect Care: None marital status: Single Current Living Situation: Alone Current Living Situation Comment: with landlord current occupational status: unemployed Feels Safe at Home: No Gender Identity: Female Assistive Devices: Glasses Review of Systems Review of Systems: All systems reviewed & are unremarkable except as noted in HPI & below Physical Exam Psychiatric: Orientation: alert and oriented x 3 Apperance: appropriately dressed and appropriately groomed Eye Contact: good eye contact Motor Behavior: no abnormal motor movements Speech: normal rate/rhythm/volume of speech (slighty increased but able to be interrupted) Affect: + depressed affect and + anxious affect Mood: + depressed mood and + anxious mood Thought Process: + tangential thought process Thought Content: + paranoid and + ideas of reference (possible) Suicidal Thoughts: denies suicidal intent; + reports suicidal thoughts (intermittent thoughts ) and + reports suicidal plan (none for here, prior to hospitalization thinking of overdosing) Homicidal Thoughts: denies homicidal thoughts Hallucinations: no auditory hallucinations and no visual hallucinations Cognition: recent memory grossly intact, remote memory grossly intact, attention grossly intact and language grossly intact Estimated Intelligence: consistent with education level Insight: + limited insight Judgment: + limited judgement Vital Signs (Past 24 Hours): Last Vital Signs Temp 37.1 C 11/14/22 06:28 Pulse 71 11/14/22 06:29 Resp 16 11/14/22 06:28 BP 111/68 11/14/22 06:29 Pulse Ox 99 02/09/23 21:02 O2 Del Method 11/13/22 21:02 Exam Statement: A physical exam was performed in the ED by Dr. Gaytan for the purposes of medical clearance. I accept that physical as correct and adequate for the purposes of the inpatient physical exam. Results & Data ([facility]) Laboratory Results Laboratory Results - last 24 hr 11/13/22 11/13/22 11/13/22 18:21 19:08 19:08 WBC 13.78 H RBC 3.94 L Hgb 13.1 Hct 37.6 MCV 95.4 MCH 33.2 MCHC 34.8 RDW Std Deviation 43.7 RDW Coeff of Yanet 12.5 Plt Count 271 MPV 9.9 Immature Gran % (Auto) 0.3 Neut % (Auto) 67.3 Lymph % (Auto) 22.9 Borden % (Auto) 3.7 Eos % (Auto) 5.5 Baso % (Auto) 0.3 Neut # (Auto) 9.28 H Lymph # (Auto) 3.15 Borden # (Auto) 0.51 Eos # (Auto) 0.76 H Baso # (Auto) 0.04 Immature Gran # (Auto) 0.04 Sodium 142 Potassium 3.7 Chloride 110 H Carbon Dioxide 29 Anion Gap 3 BUN 14 Creatinine 0.75 Est Cr Clr Drug Dosing Not Reportable Est GFR ( Amer) 111.6 Est GFR (Non-Af Amer) 96.3 BUN/Creatinine Ratio 18.7 Glucose 82 Calcium 8.7 Total Bilirubin 0.4 AST 13 ALT 10 Alkaline Phosphatase 46 Total Protein 6.4 Albumin 3.9 Globulin 2.5 Albumin/Globulin Ratio 1.6 TSH Urine Color Urine Appearance Urine pH Ur Specific [place] Urine Protein Urine Glucose (UA) Urine Ketones Urine Blood Urine Nitrite Urine Bilirubin Urine Urobilinogen Ur Leukocyte Esterase Urine WBC (Auto) Urine RBC (Auto) U Hyaline Cast (Auto) U Epithel Cells (Auto) Urine Bacteria (Auto) Urine Test Salicylates Urine Opiates Screen Ur Methadone, Qual Acetaminophen Urine Barbiturates Ur Phencyclidine (PCP) U Amphetamin/Meth Scrn MDMA (Ecstasy) Screen U OH-Alprazolam Confrm U Benzodiazepines Scrn 7-Amino Clonazepam Ur Nordiazepam Confirm U OH-ethylflurazepam U Lorazepam Cnf GC/MS U Oxazepam Confm GC/MS Ur Temazepam Confirm U OH-Triazolam Confirm U OH-Midazolam Confirm Ur Cocaine Metabolite U Marijuana (THC) Screen U Marijuana THC Carboxy Drug Screen Comment Ethyl Alcohol mg/dL SARS-CoV-2, RNA, NAAT NEGATIVE 11/13/22 11/13/22 11/13/22 19:08 19:08 19:08 WBC RBC Hgb Hct MCV MCH MCHC RDW Std Deviation RDW Coeff of Yanet Plt Count MPV Immature Gran % (Auto) Neut % (Auto) Lymph % (Auto) Borden % (Auto) Eos % (Auto) Baso % (Auto) Neut # (Auto) Lymph # (Auto) Borden # (Auto) Eos # (Auto) Baso # (Auto) Immature Gran # (Auto) Sodium Potassium Chloride Carbon Dioxide Anion Gap BUN Creatinine Est Cr Clr Drug Dosing Est GFR ( Amer) Est GFR (Non-Af Amer) BUN/Creatinine Ratio Glucose Calcium Total Bilirubin AST ALT Alkaline Phosphatase Total Protein Albumin Globulin Albumin/Globulin Ratio TSH 0.900 Urine Color Urine Appearance Urine pH Ur Specific [place] Urine Protein Urine Glucose (UA) Urine Ketones Urine Blood Urine Nitrite Urine Bilirubin Urine Urobilinogen Ur Leukocyte Esterase Urine WBC (Auto) Urine RBC (Auto) U Hyaline Cast (Auto) U Epithel Cells (Auto) Urine Bacteria (Auto) Urine Test Salicylates < 3.0 L Urine Opiates Screen Ur Methadone, Qual Acetaminophen < 3 L Urine Barbiturates Ur Phencyclidine (PCP) U Amphetamin/Meth Scrn MDMA (Ecstasy) Screen U OH-Alprazolam Confrm U Benzodiazepines Scrn 7-Amino Clonazepam Ur Nordiazepam Confirm U OH-ethylflurazepam U Lorazepam Cnf GC/MS U Oxazepam Confm GC/MS Ur Temazepam Confirm U OH-Triazolam Confirm U OH-Midazolam Confirm Ur Cocaine Metabolite U Marijuana (THC) Screen U Marijuana THC Carboxy Drug Screen Comment Ethyl Alcohol mg/dL < 10.0 SARS-CoV-2, RNA, NAAT 11/13/22 11/13/22 11/13/22 20:56 20:56 20:56 WBC RBC Hgb Hct MCV MCH MCHC RDW Std Deviation RDW Coeff of Yanet Plt Count MPV Immature Gran % (Auto) Neut % (Auto) Lymph % (Auto) Borden % (Auto) Eos % (Auto) Baso % (Auto) Neut # (Auto) Lymph # (Auto) Borden # (Auto) Eos # (Auto) Baso # (Auto) Immature Gran # (Auto) Sodium Potassium Chloride Carbon Dioxide Anion Gap BUN Creatinine Est Cr Clr Drug Dosing Est GFR ( Amer) Est GFR (Non-Af Amer) BUN/Creatinine Ratio Glucose Calcium Total Bilirubin AST ALT Alkaline Phosphatase Total Protein Albumin Globulin Albumin/Globulin Ratio TSH Urine Color Yellow Urine Appearance Cloudy A Urine pH 7.5 Ur Specific [place] 1.015 Urine Protein Negative Urine Glucose (UA) Negative Urine Ketones Negative Urine Blood Negative Urine Nitrite Negative Urine Bilirubin Negative Urine Urobilinogen Negative Ur Leukocyte Esterase Negative Urine WBC (Auto) 1-5 Urine RBC (Auto) 0-4 U Hyaline Cast (Auto) 1-5 U Epithel Cells (Auto) 20-30 H Urine Bacteria (Auto) Negative Urine Test Negative Salicylates Urine Opiates Screen Neg Ur Methadone, Qual Neg Acetaminophen Urine Barbiturates Neg Ur Phencyclidine (PCP) Neg U Amphetamin/Meth Scrn Neg MDMA (Ecstasy) Screen Neg U OH-Alprazolam Confrm U Benzodiazepines Scrn Pos H 7-Amino Clonazepam Ur Nordiazepam Confirm U OH-ethylflurazepam U Lorazepam Cnf GC/MS U Oxazepam Confm GC/MS Ur Temazepam Confirm U OH-Triazolam Confirm U OH-Midazolam Confirm Ur Cocaine Metabolite Neg U Marijuana (THC) Screen Pos H U Marijuana THC Carboxy Drug Screen Comment Ethyl Alcohol mg/dL SARS-CoV-2, RNA, NAAT 11/13/22 20:56 WBC RBC Hgb Hct MCV MCH MCHC RDW Std Deviation RDW Coeff of Yanet Plt Count MPV Immature Gran % (Auto) Neut % (Auto) Lymph % (Auto) B[place] % (Auto) Eos % (Auto) Baso % (Auto) Neut # (Auto) Lymph # (Auto) [place] # (Auto) Eos # (Auto) Baso # (Auto) Immature Gran # (Auto) Sodium Potassium Chloride Carbon Dioxide Anion Gap BUN Creatinine Est Cr Clr Drug Dosing Est GFR ( Amer) Est GFR (Non-Af Amer) BUN/Creatinine Ratio Glucose Calcium Total Bilirubin AST ALT Alkaline Phosphatase Total Protein Albumin Globulin Albumin/Globulin Ratio TSH Urine Color Urine Appearance Urine pH Ur Specific [place] Urine Protein Urine Glucose (UA) Urine Ketones Urine Blood Urine Nitrite Urine Bilirubin Urine Urobilinogen Ur Leukocyte Esterase Urine WBC (Auto) Urine RBC (Auto) U Hyaline Cast (Auto) U Epithel Cells (Auto) Urine Bacteria (Auto) Urine Test Salicylates Urine Opiates Screen Ur Methadone, Qual Acetaminophen Urine Barbiturates Ur Phencyclidine (PCP) U Amphetamin/Meth Scrn MDMA (Ecstasy) Screen U OH-Alprazolam Confrm Pending U Benzodiazepines Scrn 7-Amino Clonazepam Pending Ur Nordiazepam Confirm Pending U OH-ethylflurazepam Pending U Lorazepam Cnf GC/MS Pending U Oxazepam Confm GC/MS Pending Ur Temazepam Confirm Pending U OH-Triazolam Confirm Pending U OH-Midazolam Confirm Pending Ur Cocaine Metabolite U Marijuana (THC) Screen U Marijuana THC Carboxy Pending Drug Screen Comment Pending Ethyl Alcohol mg/dL SARS-CoV-2, RNA, NAAT Current Inpatient Medications Current Inpatient Medications: Current Inpatient Medications Acetaminophen (Acetaminophen 325 Mg Tab) 650 mg PO Q4H PRN PRN Reason: Headache or Minor Fever Stop: 12/13/22 22:38 Al Hydrox/Mg Hydrox/Simethicone (Aluminum/Magnesium Susp 30 Ml Udc) 30 ml PO Q4H PRN PRN Reason: GI Upset Stop: 12/13/22 22:38 Albuterol (Albuterol Hfa 8 Gm Inhaler) 2 puffs INH Q6 PRN PRN Reason: Shortness Of Breath Stop: 12/14/22 06:49 Last Admin: 11/14/22 07:00 Dose: 2 puffs Alprazolam (Alprazolam 0.5 Mg Tablet) 0.5 mg PO BID PRN PRN Reason: Anxiety/Agitation Stop: 12/13/22 23:25 Last Admin: 11/13/22 23:49 Dose: 0.5 mg Bismuth Subsalicylate (Bismuth Subsalicylate Liqd 236 Ml) 15 ml PO PRN PRN PRN Reason: Loose Stool Stop: 12/13/22 22:38 Hydroxyzine HCl (Hydroxyzine Hcl 25 Mg Tab) 50 mg PO HSZ PRN PRN Reason: Insomnia Stop: 12/13/22 22:38 Hydroxyzine HCl (Hydroxyzine Hcl 25 Mg Tab) 25 mg PO Q4H PRN PRN Reason: Anxiety Stop: 12/13/22 22:38 Magnesium Hydroxide (Magnesium Hydroxide Susp 30 Ml Udc) 30 ml PO DAILY PRN PRN Reason: Constipation Stop: 12/13/22 22:38 Sodium Chloride (Sodium Chloride 0.65% Na Soln 45 Ml ([place])) 1 - 2 sprays NA PRN PRN PRN Reason: Nasal Dryness/Congestion Stop: 12/13/22 22:38
[2022-11-14] MEDS: ALPRAZolam 0.5 MG TABLET PO PRN (08:49)
[2022-11-14] MEDS: NON-FORMULARY PATIENT'S OWN MED PO SCH (12:19)
[2022-11-14] MEDS: clonazePAM 0.5 MG TAB PO PRN (14:57)
[2022-11-14] MEDS: hydrOXYzine HCl 25 MG TAB PO PRN (21:37)
--- NOTE | 2022-11-15 07:57 | History & Physical ---
Date of Service November 15, 2022 Impression / Recommendations Impression Roosevelt is a 47 year old woman with a history of MDD, KJ, PTSD, BPD, body dysmorphia who was admitted for SI with plan of overdosing and significant paranoia related to an ex-boyfriend. Diagnostically unclear at this time, differential is broad including MDD with psychotic features vs complex PTSD vs cannabis induced psychosis/mood changes vs delusional disorder vs reality-based response with subsequent worsening of depression. She is deemed in need of psychiatric hospitalization for diagnostic clarification, safety and stabilization, medication management and development of further coping skills. MNPR due to distressing symptoms and paranoia (1) Depression with suicidal ideation: (2) Unspecified psychosis not due to a substance or known physiological condition: (3) Cannabis use disorder: (4) Post traumatic stress disorder (PTSD): Plan 11/14/2022: The patient was admitted to the [facility] ([facility]) on q15 min checks (behavioral with suicide precautions) for safety. The patient will participate in group, recreational, and milieu therapies and will be offered additional individual and family sessions as clinically appropriate. -Hold Wellbutrin given dopaminergic effects can worsen paranoia/axniety -Switch from Xanax 0.5mg QID prn to longer acting Klonopin 0.5mg BID prn given lower abuse potential with goal of ongoing taper to discontinuation (or only few doses per month for use for severe panic attacks) -Consider antipsychotic trial, will gather further collateral and monitor symptoms for now Inventory Assets Strengths: supportive relationships, willing to get treatment Needs: safety and stabilization, medication adjustment, additional coping skills, increased outpatient services Suicide Risk Level Suicide Risk Level: High-Moderate (q15 min suicide checks) (due to severe depression with SI with plan and paranoia prior to admission but feels safe in the hospital, able to safety contract and agrees to let nursing/staff know should they develop plan, intent or feel unable to remain safe.) Suicide Risk Level Comments: Risk Factors Assessment : Yes Do You Have Access To A Gun?: No Mental Health Diagnoses: Yes Previous Attempt: Yes Family History of Suicide: No Previous Psychiatric Hospitalization: Yes Protective Factors Assessment Employed: No Stable Relationships: Yes Good Rapport with Provider: Yes Psychiatric History Identifying Data ROOSEVELT VARGAS is a 47-year-old F who currently lives in [] [alone] with [], has a history of [], and was admitted on 11/13/22 22:39 on a [201 voluntary] [302 involuntary] commitment for []. Chief Complaint "[]". History of Present Illness She presents for psychiatric admission for worsening depression and paranoia that her ex-boyfriend is going to kill her. She describes multiple recent psychosocial stressors including financial strain/significant debt as well as recently discovering that her now ex-boyfriend of a few months may be involved with some type of international sex trafficking ring. This revealtion has caused her to go into "a state of shock" and she no longer felt safe at home due to concerns he may try to kill her. She ended things with him a few days ago after discovering he had an unknown instagram account with odd artwork and "creep images that allude to him being a predator". She reported this to the [place] police and describes since talking to the [employer]. She has been fearful to use her phone as this ex-boyfriend works at [employer], and also travels internationally, and "he's a hacker" so she fears he could retrieve her messages. She notes "I know this sounds paranoid but I swear it's true". Even know she feels he is "enough of a sociopath" that she fears he may try to "slip something under the crack of my door to kill me pets". She was recently started on Wellbutrin (per review of med rec appears to be Wellbutrin SR 100mg daily) by her primary care provider. She also takes Xanax QID prn for anxiety and feels "this is absolutely necessary". Endorses worsened depression and SI with thoughts of overdosing on acetaminophen prior to coming to the hospital due to her fear. Endorses significant trauma history and feels these events have triggered her PTSD symptoms. Tearful describing how she is always taken advantage of or finds bad partners in relationships. Sleep has been stable. Psychiatric ROS notable for no current nor history of symptoms of mani, OCD nor eating disorder. Past Psychiatric History Current Psychiatric Diagnosis: MDD Do You Have Access To A Gun?: No History of Previous Suicide Attempt: Yes Describe Attempts in the Past: overdose on acetaminophen in 2017, other prior attempts via overdose Allergies Allergy/AdvReac Type Severity Reaction Status Date / Time animal dander Allergy Unknown Unknown Verified 02/18/21 14:27 tetanus toxoid, adsorbed Allergy Unknown Unknown Verified 02/15/21 11:23 Home Medications Medication Instructions Recorded Confirmed Type albuterol sulfate 90 mcg/actuation 2 puff inhalation Q6H PRN 09/24/18 11/13/22 History aerosol inhaler (Ventolin HFA) Shortness Of Breath Or Wheezing norgestrel 0.3 mg-ethinyl 1 tab PO DAILY 02/15/21 11/13/22 History estradiol 30 mcg tablet (Low-Ogestrel (28)) alprazolam 0.5 mg PO QID PRN Anxiety 08/20/22 11/13/22 History bupropion HCl 100 mg tablet,12 hr 100 mg PO DAILY 11/13/22 11/13/22 History sustained-release (Wellbutrin SR) Family History Family History of: Doesn't Know Alcohol History Hx of Alcohol Use Over the Past 12 Months: Yes (rarely) AUDIT Total Score: 1 Smoking Use Have You Smoked or Used Tobacco Products in the Last 30 Days: Yes tobacco type: cigarettes Smoking Status: Current some day smoker Smoking packs per day: 0.25 Substance History Hx of Prescription Med Misuse Over the Past 12 Months: No Hx of Over the Counter Med Misuse Over the Past 12 Months: No Hx of Inhalent Misuse Over the Past 12 Months: No Hx of Organic Substance Use Over the Past 12 Months: Yes (medical marijuana) Hx of Illegal Substances/Street Drug Use Over Past 12 Months: No Problems as a Result of Past Substance Use: None Identified Personal History Living Arrangements: Apartment Born In: [place], [place] Highest Grade Completed: College Employment Status: Disabled Marital Status: Single Number Of Children: 0 Beliefs That Will Affect Care: None Hx Legal Problems: No Hx Traumatic Life Events: Yes Psychological Trauma History Comment: significant childhood trauma Patient History Medical History Admitted to intensive care unit (Unknown) Anemia Anxiety Bilateral breast implants (01/22/13) Depression Fever (04/25/14) 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) Hyperventilation syndrome Overdose by acetaminophen (03/15/14) Polysubstance overdose Rhabdomyolysis Sepsis Suicidal ideation Vaginal yeast infection Weakness Family History Brother Depression Father Depression Mother Depression Other Cancer Social History Smoking Status: Current some day smoker Tobacco Type: Cigarettes Hx Alcohol Use: Yes Alcohol type: other Preferred Language: [place] Communication Ability: Effective Visual Impairment: Partially Limited Hearing Ability: Normal 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 Beliefs That Will Affect Care: None marital status: Single Current Living Situation: Alone Current Living Situation Comment: with landlord current occupational status: unemployed Feels Safe at Home: No Gender Identity: Female Assistive Devices: Glasses Physical Exam Psychiatric: Orientation: alert and oriented x 3 Apperance: appropriately dressed and appropriately groomed Eye Contact: good eye contact Motor Behavior: no abnormal motor movements Speech: normal rate/rhythm/volume of speech (slighty increased but able to be interrupted) Affect: + depressed affect and + anxious affect Mood: + depressed mood and + anxious mood Thought Process: goal directed thought process and + tangential thought process Thought Content: + paranoid, reality based without delusions and + ideas of reference (possible) Suicidal Thoughts: denies suicidal intent; + reports suicidal thoughts (intermittent thoughts ) and + reports suicidal plan (none for here, prior to hospitalization thinking of overdosing) Homicidal Thoughts: denies homicidal thoughts Hallucinations: no auditory hallucinations and no visual hallucinations Cognition: recent memory grossly intact, remote memory grossly intact, attention grossly intact and language grossly intact Estimated Intelligence: consistent with education level Insight: + limited insight and + fair insight Judgment: + limited judgement and + fair judgement Vital Signs (Past 24 Hours): Last Vital Signs Temp 37.3 C 11/15/22 06:44 Pulse 67 11/15/22 06:45 Resp 16 11/15/22 06:44 BP 112/70 11/15/22 06:45 Pulse Ox 99 11/13/22 21:02 O2 Del Method 11/13/22 21:02 Results & Data (U) Current Inpatient Medications Current Inpatient Medications: Current Inpatient Medications Acetaminophen (Acetaminophen 325 Mg Tab) 650 mg PO Q4H PRN PRN Reason: Headache or Minor Fever Stop: 12/13/22 22:38 Al Hydrox/Mg Hydrox/Simethicone (Aluminum/Magnesium Susp 30 Ml Udc) 30 ml PO Q4H PRN PRN Reason: GI Upset Stop: 12/13/22 22:38 Albuterol (Albuterol Hfa 8 Gm Inhaler) 2 puffs INH Q6 PRN PRN Reason: Shortness Of Breath Stop: 12/14/22 06:49 Last Admin: 11/14/22 19:49 Dose: 2 puffs Bismuth Subsalicylate (Bismuth Subsalicylate Liqd 236 Ml) 15 ml PO PRN PRN PRN Reason: Loose Stool Stop: 12/13/22 22:38 Clonazepam (Clonazepam 0.5 Mg Tab) 0.5 mg PO BID PRN PRN Reason: panic attacks Stop: 12/14/22 14:48 Last Admin: 11/14/22 14:57 Dose: 0.5 mg Hydroxyzine HCl (Hydroxyzine Hcl 25 Mg Tab) 50 mg PO HSZ PRN PRN Reason: Insomnia Stop: 12/13/22 22:38 Hydroxyzine HCl (Hydroxyzine Hcl 25 Mg Tab) 25 mg PO Q4H PRN PRN Reason: Anxiety Stop: 12/13/22 22:38 Last Admin: 11/14/22 21:37 Dose: 25 mg Magnesium Hydroxide (Magnesium Hydroxide Susp 30 Ml Udc) 30 ml PO DAILY PRN PRN Reason: Constipation Stop: 12/13/22 22:38 Non-Formulary Medication (Non-Formulary Patient's Own Med) 1 each PO DAILY MARY Stop: 12/14/22 12:14 Last Admin: 11/14/22 12:19 Dose: 1 each Sodium Chloride (Sodium Chloride 0.65% Na Soln 45 Ml ([place])) 1 - 2 sprays NA PRN PRN PRN Reason: Nasal Dryness/Congestion Stop: 12/13/22 22:38
[2022-11-15] MEDS: NON-FORMULARY PATIENT'S OWN MED PO SCH (08:26)
[2022-11-15] MEDS: clonazePAM 0.5 MG TAB PO PRN ×2 (08:29→14:28)
--- NOTE | 2022-11-15 08:48 | Psychiatric Progress Note ---
Date of Service November 15, 2022 Impression / Recommendations Impression 11/15/22: Remains preoccupied with ex-boyfriend and his possible nefarious doings. Suspects "he put a tracking device" (not software) on her phone, fears that as a "super-hacker" he could invade her life at any time. Emphasizes how anxious she is, currently rating that as a bigger problem than depression. Discussed her history of medication intolerance and her recent very brief trial of bupropion which is temporally correlated with recent exacerbation of symptoms and has been stopped. Reviewed treatment options at length. She does not believe she'd taken an SNRI other than venlafaxine, which she stopped due to lack of benefit (at a maximum dose of 1 capsule/day, so no more than 150 mg/day) but to which she attributes no adverse effects. Discussed trial of duloxetine at length, including potential for discontinuation syndrom if stopped abruptly, potential for hypertension. (1) Depression with suicidal ideation: (2) Unspecified psychosis not due to a substance or known physiological cond ition: (3) Cannabis use disorder: (4) Post traumatic stress disorder (PTSD): Plan 10/15/22: Start duloxetine 20 mg daily with long-term goal of titrating to 60 mg. Noted that further increase would almost certainly be undertaken on an outpatient basis. Continue clonazepam 0.5 mg BID PRN for now. Suicide Risk Level Suicide Risk Level: High-Moderate (q15 min suicide checks) (due to severe depression with SI with plan and paranoia prior to admission but feels safe in the hospital, able to safety contract and agrees to let nursing/staff know should they develop plan, intent or feel unable to remain safe.) Risk Factors Assessment : Yes Do You Have Access To A Gun?: No Mental Health Diagnoses: Yes Previous Attempt: Yes Family History of Suicide: No Previous Psychiatric Hospitalization: Yes Protective Factors Assessment Employed: No Stable Relationships: Yes Good Rapport with Provider: Yes Interval History Identifying Information Rakesh is a 47 year old woman with a history of MDD, KJ, PTSD, BPD, body dysmorphia who was admitted for SI with plan of overdosing and significant paranoia related to an ex-boyfriend. Diagnostically unclear at this time, differential is broad including MDD with psychotic features vs complex PTSD vs cannabis induced psychosis/mood changes vs delusional disorder vs reality-based response with subsequent worsening of depression. She is deemed in need of psychiatric hospitalization for diagnostic clarification, safety and stabilization, medication management and development of further coping skills. Chief Complaint "I'm just really suicidal a lot". Review of Systems Sleep Information Total Hours of Sleep: 8.25 Meal Information Percent Meal Consumed - Breakfast: 100 Percent Meal Consumed - Lunch: 100 Percent Meal Consumed - Dinner: 100 Subjective Subjective Patient was seen & assessed and interval progress reviewed with treatment team nursing and social work Physical Exam Psychiatric Orientation: alert and oriented x 3 Apperance: appropriately dressed and appropriately groomed Eye Contact: good eye contact Motor Behavior: no abnormal motor movements Speech: normal rate/rhythm/volume of speech (slighty increased but able to be interrupted) Affect: + depressed affect and + anxious affect Mood: + depressed mood and + anxious mood Thought Process: + tangential thought process Thought Content: + preoccupation (with ex-boyfriend and his possible activities), + paranoid, reality based without delusions and + ideas of reference (possible) Suicidal Thoughts: denies suicidal intent; + reports suicidal thoughts (intermittent thoughts ) and + reports suicidal plan (none for here, prior to hospitalization thinking of overdosing) Homicidal Thoughts: denies homicidal thoughts Hallucinations: no auditory hallucinations and no visual hallucinations Cognition: recent memory grossly intact, remote memory grossly intact, attention grossly intact and language grossly intact Estimated Intelligence: consistent with education level Insight: + limited insight and + fair insight Judgment: + limited judgement and + fair judgement Vital Signs (Past 24 Hours) Last Vital Signs Temp 37.3 C 11/15/22 06:44 Pulse 67 11/15/22 06:45 Resp 16 11/15/22 06:44 BP 112/70 11/15/22 06:45 Pulse Ox 99 11/13/22 21:02 O2 Del Method 11/13/22 21:02 Results & Data ([facility]) Current Inpatient Medications Current Inpatient Medications: Current Inpatient Medications Acetaminophen (Acetaminophen 325 Mg Tab) 650 mg PO Q4H PRN PRN Reason: Headache or Minor Fever Stop: 12/13/22 22:38 Al Hydrox/Mg Hydrox/Simethicone (Aluminum/Magnesium Susp 30 Ml Udc) 30 ml PO Q4H PRN PRN Reason: GI Upset Stop: 12/13/22 22:38 Albuterol (Albuterol Hfa 8 Gm Inhaler) 2 puffs INH Q6 PRN PRN Reason: Shortness Of Breath Stop: 12/14/22 06:49 Last Admin: 11/14/22 19:49 Dose: 2 puffs Bismuth Subsalicylate (Bismuth Subsalicylate Liqd 236 Ml) 15 ml PO PRN PRN PRN Reason: Loose Stool Stop: 12/13/22 22:38 Clonazepam (Clonazepam 0.5 Mg Tab) 0.5 mg PO BID PRN PRN Reason: panic attacks Stop: 12/14/22 14:48 Last Admin: 11/15/22 08:29 Dose: 0.5 mg Hydroxyzine HCl (Hydroxyzine Hcl 25 Mg Tab) 50 mg PO HSZ PRN PRN Reason: Insomnia Stop: 12/13/22 22:38 Hydroxyzine HCl (Hydroxyzine Hcl 25 Mg Tab) 25 mg PO Q4H PRN PRN Reason: Anxiety Stop: 12/13/22 22:38 Last Admin: 11/14/22 21:37 Dose: 25 mg Magnesium Hydroxide (Magnesium Hydroxide Susp 30 Ml Udc) 30 ml PO DAILY PRN PRN Reason: Constipation Stop: 12/13/22 22:38 Non-Formulary Medication (Non-Formulary Patient's Own Med) 1 each PO DAILY MARY Stop: 12/14/22 12:14 Last Admin: 11/15/22 08:26 Dose: 1 each Sodium Chloride (Sodium Chloride 0.65% Na Soln 45 Ml ([place])) 1 - 2 sprays NA PRN PRN PRN Reason: Nasal Dryness/Congestion Stop: 12/13/22 22:38 Mental Health & Subst Abuse Tx Therapist Name of Therapist: Kyle Andres/Yohana Airline Captain Name of Airline Captain: Kinsey acuña [facility]
[2022-11-15] MEDS ORDERED: NON-FORMULARY PATIENT'S OWN MED PO SCH (09:00)
[2022-11-15] MEDS: ALBUTEROL HFA 8 GM INHALER INH PRN (19:19)
[2022-11-15] MEDS: hydrOXYzine HCl 25 MG TAB PO PRN (20:00)
[2022-11-16] MEDS: clonazePAM 0.5 MG TAB PO PRN ×3 (08:54→14:44)
[2022-11-16] MEDS: DULoxetine HCL 20 MG CAP PO SCH (08:54)
[2022-11-16] MEDS: NON-FORMULARY PATIENT'S OWN MED PO SCH (08:54)
[2022-11-16 09:03] LABS: 7-Aminoclonaz, Confirm NEGATIVE ng/mL (<25); Hydro-Alp Ur, GC/MS 359 ng/mL (<25); Hydroxyethylflurazepam, Conf NEGATIVE ng/mL (<50); Hydroxymidazolam Ur, GC/MS NEGATIVE ng/mL (<50); Hydroxytriazolam NEGATIVE ng/mL (<50); Lorazepam, Ur GC/MS NEGATIVE ng/mL (<50); Marijuana Quant, GCMS Urine 685 ng/mL (<5); Nordiazepam, Confirm NEGATIVE ng/mL (<50); Oxazepam Ur, GC/MS NEGATIVE ng/mL (<50); Temazepam, Confirm NEGATIVE ng/mL (<50)
--- NOTE | 2022-11-16 12:50 | Psychiatric Progress Note ---
Date of Service November 16, 2022 Impression / Recommendations Impression 11/16/22: Today is focused on ensuring I know that her "life depends on benzodiazepines" and that "Klonopin only lasts 4 hours and I have to take more doses". She does say that in some respects it's better than alprazolam but insists "it doesn't lask longer than Xanax". She is not at all interested in my trying to explain acheiving steady-state blood levels with proper timing of doses and bolts from the room when I urge her to give this an honest effort. She also speaks more of the danger she believes she's in from an ex-boyfriend. These persecutory fears aren't bizarre and are at least plausible, though I have to remind her a few times that I'm not going to intervene in the situation or give her legal advice (about whether to seek a restraining order). Seems barely aware of having taken duloxetine this morning and attributes no problems to it. 11/15/22: Remains preoccupied with ex-boyfriend and his possible nefarious doings. Suspects "he put a tracking device" (not software) on her phone, fears t hat as a "super-hacker" he could invade her life at any time. Emphasizes how anxious she is, currently rating that as a bigger problem than depression. Discussed her history of medication intolerance and her recent very brief trial of bupropion which is temporally correlated with recent exacerbation of symptoms and has been stopped. Reviewed treatment options at length. She does not believe she'd taken an SNRI other than venlafaxine, which she stopped due to lack of benefit (at a maximum dose of 1 capsule/day, so no more than 150 mg/day) but to which she attributes no adverse effects. Discussed trial of duloxetine at length, including potential for discontinuation syndrome if stopped abruptly, potential for hypertension. (1) Depression with suicidal ideation: (2) Unspecified psychosis not due to a substance or known physiological condition: (3) Cannabis use disorder: (4) Post traumatic stress disorder (PTSD): Plan 11/16/22: Change clonazepam from PRN to 0.5 mg BID scheduled since pt is taking it on arrival then 4 hours later. Continue nascent duloxetine trial. 10/15/22: Start duloxetine 20 mg daily with long-term goal of titrating to 60 mg. Noted that further increase would almost certainly be undertaken on an outpatient basis. Continue clonazepam 0.5 mg BID PRN for now. Suicide Risk Level Suicide Risk Level: High-Moderate (q15 min suicide checks) (due to severe depression with SI with plan and paranoia prior to admission but feels safe in the hospital, able to safety contract and agrees to let nursing/staff know should they develop plan, intent or feel unable to remain safe.) Risk Factors Assessment : Yes Do You Have Access To A Gun?: No Mental Health Diagnoses: Yes Previous Attempt: Yes Family History of Suicide: No Previous Psychiatric Hospitalization: Yes Protective Factors Assessment Employed: No Stable Relationships: Yes Good Rapport with Provider: Yes Interval History Identifying Information Rakesh is a 47 year old woman with a history of MDD, KJ, PTSD, BPD, body dysmorphia who was admitted for SI with plan of overdosing and significant paranoia related to an ex-boyfriend. Diagnostically unclear at this time, differential is broad including MDD with psychotic features vs complex PTSD vs cannabis induced psychosis/mood changes vs delusional disorder vs reality-based response with subsequent worsening of depression. She is deemed in need of psychiatric hospitalization for diagnostic clarification, safety and stabilization, medication management and development of further coping skills. Chief Complaint "I need more Klonopin". Review of Systems Sleep Information Total Hours of Sleep: 8.25 Meal Information Percent Meal Consumed - Breakfast: 100 Percent Meal Consumed - Lunch: 100 Percent Meal Consumed - Dinner: 100 Subjective Subjective Patient was seen & assessed and interval progress reviewed with treatment team nursing and social work Physical Exam Psychiatric Orientation: alert and oriented x 3 Apperance: appropriately dressed and appropriately groomed Eye Contact: good eye contact Motor Behavior: no abnormal motor movements Speech: normal rate/rhythm/volume of speech (slighty increased but able to be interrupted) Affect: + depressed affect, + anxious affect and + irritable affect Mood: + depressed mood and + anxious mood Thought Process: goal directed thought process and + tangential thought process Thought Content: + preoccupation (with ex-boyfriend and his possible activities), + paranoid, reality based without delusions and + ideas of reference (possible) Suicidal Thoughts: denies suicidal intent; + reports suicidal thoughts (intermittent thoughts ) and + reports suicidal plan (none for here, prior to hospitalization thinking of overdosing) Homicidal Thoughts: denies homicidal thoughts Hallucinations: no auditory hallucinations and no visual hallucinations Cognition: recent memory grossly intact, remote memory grossly intact, attention grossly intact and language grossly intact Estimated Intelligence: consistent with education level Insight: + limited insight and + fair insight Judgment: + limited judgement and + fair judgement Vital Signs (Past 24 Hours) Last Vital Signs Temp 37.4 C 11/16/22 06:23 Pulse 62 11/16/22 06:23 Resp 16 11/16/22 06:23 BP 117/75 11/16/22 06:23 Pulse Ox 99 11/13/22 21:02 O2 Del Method 11/13/22 21:02 Results & Data ([facility]) Laboratory Results Laboratory Results - last 24 hr 11/13/22 20:56 U OH-Alprazolam Confrm 359 H 7-Amino Clonazepam NEGATIVE Ur Nordiazepam Confirm NEGATIVE U OH-ethylflurazepam NEGATIVE U Lorazepam Cnf GC/MS NEGATIVE U Oxazepam Confm GC/MS NEGATIVE Ur Temazepam Confirm NEGATIVE U OH-Triazolam Confirm NEGATIVE U OH-Midazolam Confirm NEGATIVE U Marijuana THC Carboxy 685 H Drug Screen Comment SEE NOTE Current Inpatient Medications Current Inpatient Medications: Current Inpatient Medications Acetaminophen (Acetaminophen 325 Mg Tab) 650 mg PO Q4H PRN PRN Reason: Headache or Minor Fever Stop: 12/13/22 22:38 Al Hydrox/Mg Hydrox/Simethicone (Aluminum/Magnesium Susp 30 Ml Udc) 30 ml PO Q4H PRN PRN Reason: GI Upset Stop: 12/13/22 22:38 Albuterol (Albuterol Hfa 8 Gm Inhaler) 2 puffs INH Q6 PRN PRN Reason: Shortness Of Breath Stop: 12/14/22 06:49 Last Admin: 11/15/22 19:19 Dose: 2 puffs Bismuth Subsalicylate (Bismuth Subsalicylate Liqd 236 Ml) 15 ml PO PRN PRN PRN Reason: Loose Stool Stop: 12/13/22 22:38 Clonazepam (Clonazepam 0.5 Mg Tab) 0.5 mg PO BID PRN PRN Reason: panic attacks Stop: 12/14/22 14:48 Last Admin: 11/16/22 08:54 Dose: 0.5 mg Duloxetine HCl (Duloxetine Hcl 20 Mg Cap) 20 mg PO QAM MARY Stop: 12/16/22 08:59 Last Admin: 11/16/22 08:54 Dose: 20 mg Hydroxyzine HCl (Hydroxyzine Hcl 25 Mg Tab) 50 mg PO HSZ PRN PRN Reason: Insomnia Stop: 12/13/22 22:38 Hydroxyzine HCl (Hydroxyzine Hcl 25 Mg Tab) 25 mg PO Q4H PRN PRN Reason: Anxiety Stop: 12/13/22 22:38 Last Admin: 11/15/22 20:00 Dose: 25 mg Magnesium Hydroxide (Magnesium Hydroxide Susp 30 Ml Udc) 30 ml PO DAILY PRN PRN Reason: Constipation Stop: 12/13/22 22:38 Non-Formulary Medication (Non-Formulary Patient's Own Med) 1 each PO DAILY MARY Stop: 12/14/22 12:14 Last Admin: 11/16/22 08:54 Dose: 1 each Sodium Chloride (Sodium Chloride 0.65% Na Soln 45 Ml ([place])) 1 - 2 sprays NA PRN PRN PRN Reason: Nasal Dryness/Congestion Stop: 12/13/22 22:38 Mental Health & Subst Abuse Tx Therapist Name of Therapist: Kyle Muller Therapist's Time of Therapist Appointment: continue to follow up as scheduled Therapy Appointment Comment: [address], [place] [address] Environmental Services Supervisor Name of Environmental Services Supervisor: SERENA Euceda Phone Number for Environmental Services Supervisor: [phone] Time of Appointment with Environmental Services Supervisor: continue to follow up as scheduled Post Discharge Appointments Primary Care Physician Name Of Family Doctor/PCP: [facility] Primary Care Provider Appointment Comment: [address], [address], [place] Director Shopper Marketing Time of Appointment with Director Shopper Marketing: continue to follow up as scheduled
[2022-11-16] MEDS ORDERED: clonazePAM 0.5 MG TAB PO SCH (21:00)
[2022-11-16] MEDS: ALBUTEROL HFA 8 GM INHALER INH PRN (21:48)
[2022-11-17] MEDS: DULoxetine HCL 20 MG CAP PO SCH (08:04)
[2022-11-17] MEDS: NON-FORMULARY PATIENT'S OWN MED PO SCH (08:04)
[2022-11-17] MEDS: clonazePAM 0.5 MG TAB PO SCH ×2 (08:04→20:01)
--- NOTE | 2022-11-17 08:04 | Psychiatric Progress Note ---
Date of Service November 17, 2022 Impression / Recommendations Impression 11/17/22: This morning is hesitant to acknowledge having slept better than the previous night, though nursing observations establish that as true and pt does eventually agree. She remains concerned that she "only got 2 doses of Klonopin yesterday" (which is all that's been ordered since admission, and she does recall discussions she with both me and Dr. Siegel about that). She's apprehensive about taking it on a Q12Hr schedule today even after I emphasize that the way she'd been taking it 4 hours apart would ensure a 20-hour interval between doses during which she was very likely to have no benefit for an extended time. She continues to bring up her concerns that her ex is involved in child trafficking but is less argumentative about this. (I'll note that, as far as I'm aware, nobody has argued with her about it or attempted to dispute any potential facts, yet her approach takes an argumentative form). Pt wants to increase duloxetine. I reminded her of the previous plan of starting with a minimal dose and increasing gradually to minimize side effects as well as that I'd told her that more aggressive titration doesn't substantially reduce the overall time before clinical benefits are seen. She would still like to proceed. Pt does report "feeling more stable". She wants to discuss discharge. She signed a request for discharge the 72-hour deadline for which is tomorrow evening. I told her that I'd really prefer she stay until she's had at least one dose of increased duloxetine and a few hours to rule out serious intolerability, which would be not long before we'd have to act on her request anyway. 11/16/22: Today is focused on ensuring I know that her "life depends on benzodiazepines" and that "Klonopin only lasts 4 hours and I have to take more doses". She does say that in some respects it's better than alprazolam but insists "it doesn't lask longer than Xanax". She is not at all interested in my trying to explain achieving steady-state blood levels with proper timing of doses and bolts from the room when I urge her to give this an honest effort. She also speaks more of the danger she believes she's in from an ex-boyfriend. These persecutory fears aren't bizarre and are at least plausible, though I have to remind her a few times that I'm not going to intervene in the situation or give her legal advice (about whether to seek a restraining order). Seems barely aware of having taken duloxetine this morning and attributes no problems to it. 11/15/22: Remains preoccupied with ex-boyfriend and his possible nefarious doings. Suspects "he put a tracking device" (not software) on her phone, fears that as a "super-hacker" he could invade her life at any time. Emphasizes how anxious she is, currently rating that as a bigger problem than depression. Discussed her history of medication intolerance and her recent very brief trial of bupropion which is temporally correlated with recent exacerbation of symptoms and has been stopped. Reviewed treatment options at length. She does not believe she'd taken an SNRI other than venlafaxine, which she stopped due to lack of benefit (at a maximum dose of 1 capsule/day, so no more than 150 mg/day) but to which she attributes no adverse effects. Discussed trial of duloxetine at length, including potential for discontinuation syndrome if stopped abruptly, potential for hypertension. (1) Depression with suicidal ideation: (2) Unspecified psychosis not due to a substance or known physiological condition: (3) Cannabis use disorder: (4) Post traumatic stress disorder (PTSD): Plan 11/17/22: Cautious increase of duloxetine from 20 mg to 30 mg QAM. Continue clonazepam 0.5 mg Q12Hr, not PRN. Anticipate likely discharge tomorrow. 11/16/22: Change clonazepam from PRN to 0.5 mg BID scheduled since pt is taking it on arrival then 4 hours later. Continue nascent duloxetine trial. 10/15/22: Start duloxetine 20 mg daily with long-term goal of titrating to 60 mg. Noted that further increase would almost certainly be undertaken on an outpatient basis. Continue clonazepam 0.5 mg BID PRN for now. Suicide Risk Level Suicide Risk Level: Moderate (q15 min suicide checks) Risk Factors Assessment : Yes Do You Have Access To A Gun?: No Mental Health Diagnoses: Yes Previous Attempt: Yes Family History of Suicide: No Previous Psychiatric Hospitalization: Yes Protective Factors Assessment Employed: No Stable Relationships: Yes Good Rapport with Provider: Yes Interval History Identifying Information Rakesh is a 47 year old woman with a history of MDD, KJ, PTSD, BPD, body dysm orphia who was admitted for SI with plan of overdosing and significant paranoia related to an ex-boyfriend. Diagnostically unclear at this time, differential is broad including MDD with psychotic features vs complex PTSD vs cannabis induced psychosis/mood changes vs delusional disorder vs reality-based response with subsequent worsening of depression. She is deemed in need of psychiatric hospitalization for diagnostic clarification, safety and stabilization, medication management and development of further coping skills. Chief Complaint "I think I need more Klonopin". Review of Systems Sleep Information Total Hours of Sleep: 6.75 Meal Information Percent Meal Consumed - Breakfast: 100 Percent Meal Consumed - Lunch: 100 Percent Meal Consumed - Dinner: 90 Nutrition Comment: Documented per nursing documentation sheet Subjective Subjective Patient was seen & assessed and interval progress reviewed with treatment team nursing and social work Physical Exam Psychiatric Orientation: alert and oriented x 3 Apperance: appropriately dressed and appropriately groomed Eye Contact: good eye contact Motor Behavior: no abnormal motor movements Speech: normal rate/rhythm/volume of speech (slighty increased but able to be interrupted) Affect: + depressed affect, + anxious affect and + irritable affect Mood: + depressed mood and + anxious mood Thought Process: + tangential thought process Thought Content: + preoccupation (with ex-boyfriend and his possible activities), + paranoid, reality based without delusions and + ideas of reference (possible) Suicidal Thoughts: denies suicidal intent; + reports suicidal thoughts (intermittent thoughts ) and + reports suicidal plan (none for here, prior to hospitalization thinking of overdosing) Homicidal Thoughts: denies homicidal thoughts Hallucinations: no auditory hallucinations and no visual hallucinations Cognition: recent memory grossly intact, remote memory grossly intact, attention grossly intact and language grossly intact Estimated Intelligence: consistent with education level Insight: + limited insight Judgment: + fair judgement Vital Signs (Past 24 Hours) Last Vital Signs Temp 37.3 C 11/17/22 06:23 Pulse 70 11/17/22 06:23 Resp 16 11/17/22 06:23 BP 111/66 11/17/22 06:23 Pulse Ox 99 11/13/22 21:02 O2 Del Method 11/13/22 21:02 Results & Data ([facility]) Laboratory Results Laboratory Results - last 24 hr 11/13/22 20:56 U OH-Alprazolam Confrm 359 H 7-Amino Clonazepam NEGATIVE Ur Nordiazepam Confirm NEGATIVE U OH-ethylflurazepam NEGATIVE U Lorazepam Cnf GC/MS NEGATIVE U Oxazepam Confm GC/MS NEGATIVE Ur Temazepam Confirm NEGATIVE U OH-Triazolam Confirm NEGATIVE U OH-Midazolam Confirm NEGATIVE U Marijuana THC Carboxy 685 H Drug Screen Comment SEE NOTE Current Inpatient Medications Current Inpatient Medications: Current Inpatient Medications Acetaminophen (Acetaminophen 325 Mg Tab) 650 mg PO Q4H PRN PRN Reason: Headache or Minor Fever Stop: 12/13/22 22:38 Al Hydrox/Mg Hydrox/Simethicone (Aluminum/Magnesium Susp 30 Ml Udc) 30 ml PO Q4H PRN PRN Reason: GI Upset Stop: 12/13/22 22:38 Albuterol (Albuterol Hfa 8 Gm Inhaler) 2 puffs INH Q6 PRN PRN Reason: Shortness Of Breath Stop: 12/14/22 06:49 Last Admin: 11/16/22 21:48 Dose: 2 puffs Bismuth Subsalicylate (Bismuth Subsalicylate Liqd 236 Ml) 15 ml PO PRN PRN PRN Reason: Loose Stool Stop: 12/13/22 22:38 Clonazepam (Clonazepam 0.5 Mg Tab) 0.5 mg PO BID MARY Stop: 12/17/22 08:59 Duloxetine HCl (Duloxetine Hcl 20 Mg Cap) 20 mg PO QAM MARY Stop: 12/16/22 08:59 Last Admin: 11/16/22 08:54 Dose: 20 mg Hydroxyzine HCl (Hydroxyzine Hcl 25 Mg Tab) 50 mg PO HSZ PRN PRN Reason: Insomnia Stop: 12/13/22 22:38 Last Admin: 11/16/22 21:46 Dose: 50 mg Hydroxyzine HCl (Hydroxyzine Hcl 25 Mg Tab) 25 mg PO Q4H PRN PRN Reason: Anxiety Stop: 12/13/22 22:38 Last Admin: 11/15/22 20:00 Dose: 25 mg Magnesium Hydroxide (Magnesium Hydroxide Susp 30 Ml Udc) 30 ml PO DAILY PRN PRN Reason: Constipation Stop: 12/13/22 22:38 Non-Formulary Medication (Non-Formulary Patient's Own Med) 1 each PO DAILY MARY Stop: 12/14/22 12:14 Last Admin: 11/16/22 08:54 Dose: 1 each Sodium Chloride (Sodium Chloride 0.65% Na Soln 45 Ml ([place])) 1 - 2 sprays NA PRN PRN PRN Reason: Nasal Dryness/Congestion Stop: 12/13/22 22:38 Mental Health & Subst Abuse Tx Therapist Name of Therapist: Kyle Muller Therapist's Time of Therapist Appointment: continue to follow up as scheduled Therapy Appointment Comment: [address], [place] [address] Inspector Eyeglass Name of Inspector Eyeglass: ANTONIETTA/RON Euceda Phone Number for Inspector Eyeglass: [phone] Time of Appointment with Inspector Eyeglass: continue to follow up as scheduled Post Discharge Appointments Primary Care Physician Name Of Family Doctor/PCP: [facility] Primary Care Provider Appointment Comment: [id number], [address], [place] Senior Power Scheduler Time of Appointment with Senior Power Scheduler: continue to follow up as scheduled
[2022-11-17] MEDS: ALBUTEROL HFA 8 GM INHALER INH PRN (19:34)
[2022-11-18] MEDS: clonazePAM 0.5 MG TAB PO SCH (08:01)
[2022-11-18] MEDS: NON-FORMULARY PATIENT'S OWN MED PO SCH (08:04)
[2022-11-18] MEDS ORDERED: DULoxetine HCL 30 MG CAP PO SCH (09:00)
--- NOTE | 2022-11-18 09:07 | Discharge Summary ---
Date of Service November 18, 2022 History of Present Illness She presents for psychiatric admission for worsening depression and paranoia that her ex-boyfriend is going to kill her. She describes multiple recent psychosocial stressors including financial strain/significant debt as well as recently discovering that her now ex-boyfriend of a few months may be involved with some type of international sex trafficking ring. This revealtion has caused her to go into "a state of shock" and she no longer felt safe at home due to concerns he may try to kill her. She ended things with him a few days ago after discovering he had an unknown instagram account with odd artwork and "creep images that allude to him being a predator". She reported this to the [place] police and describes since talking to the [employer]. She has been fearful to use her phone as this ex-boyfriend works at [employer], and also travels internationally, and "he's a hacker" so she fears he could retrieve her messages. She notes "I know this sounds paranoid but I swear it's true". Even know she feels he is "enough of a sociopath" that she fears he may try to "slip something under the crack of my door to kill me pets". She was recently started on Wellbutrin (per review of med rec appears to be Wellbutrin SR 100mg daily) by her primary care provider. She also takes Xanax QID prn for anxiety and feels "this is absolutely necessary". Endorses worsened depression and SI with thoughts of overdosing on acetaminophen prior to coming to the hospital due to her fear. Endorses significant trauma history and feels these events have triggered her PTSD symptoms. Tearful describing how she is always taken advantage of or finds bad partners in relationships. Sleep has been stable. Psychiatric ROS notable for no current nor history of symptoms of mani, OCD nor eating disorder. Physical Exam Psychiatric Orientation: alert and oriented x 3 Apperance: appropriately dressed and appropriately groomed Eye Contact: good eye contact Motor Behavior: no abnormal motor movements Speech: normal rate/rhythm/volume of speech (slighty increased but able to be interrupted) Affect: + depressed affect, + anxious affect and + irritable affect Mood: + depressed mood and + anxious mood Thought Process: goal directed thought process and + tangential thought process Thought Content: + preoccupation (with ex-boyfriend and his possible activities), + paranoid, reality based without delusions and + ideas of reference (possible) Suicidal Thoughts: denies suicidal intent; + reports suicidal thoughts (intermittent thoughts ) and + reports suicidal plan (none for here, prior to hospitalization thinking of overdosing) Homicidal Thoughts: denies homicidal thoughts Hallucinations: no auditory hallucinations and no visual hallucinations Cognition: recent memory grossly intact, remote memory grossly intact, attention grossly intact and language grossly intact Estimated Intelligence: consistent with education level Insight: + limited insight and + fair insight Judgment: + limited judgement and + fair judgement Vital Signs (Past 24 Hours) Last Vital Signs Temp 37.3 C 11/18/22 06:37 Pulse 58 L 11/18/22 06:38 Resp 16 11/18/22 06:37 BP 122/70 11/18/22 06:38 Pulse Ox 99 11/13/22 21:02 O2 Del Method Room Air 11/13/22 21:02 A physical exam was performed in the ED by the ED physician for the purposes of medical clearance. I accept that physical as correct and adequate for the purposes of the inpatient physical exam. Principal Diagnosis Cannabis-induced psychotic disorder Psychiatric Data See daily stay summary. In short, safety was maintained and the patient was cooperative with care. Medication changes included discontinuation of bupropion, replacemtn of alprazolam with clonazepam, and start of duloxetine, and they tolerated this well. A safety plan was completed prior to discharge. 11/17/22: This morning is hesitant to acknowledge having slept better than the previous night, though nursing observations establish that as true and pt does eventually agree. She remains concerned that she "only got 2 doses of Klonopin yesterday" (which is all that's been ordered since admission, and she does recall discussions she with both me and Dr. Siegel about that). She's apprehensive about taking it on a Q12Hr schedule today even after I emphasize that the way she'd been taking it 4 hours apart would ensure a 20-hour interval between doses during which she was very likely to have no benefit for an extended time. She continues to bring up her concerns that her ex is involved in child trafficking but is less argumentative about this. (I'll note that, as far as I'm aware, nobody has argued with her about it or attempted to dispute any potential facts, yet her approach takes an argumentative form). Pt wants to increase duloxetine. I reminded her of the previous plan of starting with a minimal dose and increasing gradually to minimize side effects as well as that I'd told her that more aggressive titration doesn't substantially reduce the overall time before clinical benefits are seen. She would still like to proceed. Pt does report "feeling more stable". She wants to discuss discharge. She signed a request for discharge the 72-hour deadline for which is tomorrow evening. I told her that I'd really prefer she stay until she's had at least one dose of increased duloxetine and a few hours to rule out serious intolerability, which would be not long before we'd have to act on her request anyway. 11/16/22: Today is focused on ensuring I know that her "life depends on benzodiazepines" and that "Klonopin only lasts 4 hours and I have to take more doses". She does say that in some respects it's better than alprazolam but insists "it doesn't lask longer than Xanax". She is not at all interested in my trying to explain achieving steady-state blood levels with proper timing of d oses and bolts from the room when I urge her to give this an honest effort. She also speaks more of the danger she believes she's in from an ex-boyfriend. These persecutory fears aren't bizarre and are at least plausible, though I have to remind her a few times that I'm not going to intervene in the situation or give her legal advice (about whether to seek a restraining order). Seems barely aware of having taken duloxetine this morning and attributes no problems to it. 11/15/22: Remains preoccupied with ex-boyfriend and his possible nefarious doings. Suspects "he put a tracking device" (not software) on her phone, fears that as a "super-hacker" he could invade her life at any time. Emphasizes how anxious she is, currently rating that as a bigger problem than depression. Discussed her history of medication intolerance and her recent very brief trial of bupropion which is temporally correlated with recent exacerbation of symptoms and has been stopped. Reviewed treatment options at length. She does not believe she'd taken an SNRI other than venlafaxine, which she stopped due to lack of benefit (at a maximum dose of 1 capsule/day, so no more than 150 mg/day) but to which she attributes no adverse effects. Discussed trial of duloxetine at length, including potential for discontinuation syndrome if stopped abruptly, potential for hypertension. Day of Discharge Assessment Today the patient voices readiness for discharge. They note improvement in mood and deny thoughts to harm self or others. Thoughts remain organized and they are improved from admission. There is no evidence of psychosis. They agree to take mediations as prescribed and keep follow-up appointments. They are stable for discharge to outpatient level of care. 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 Suicide Risk Level Suicide Risk Level: Low (q15 min observation checks) Risk Factors Assessment : Yes Do You Have Access To A Gun?: No Mental Health Diagnoses: Yes Previous Attempt: Yes Family History of Suicide: No Previous Psychiatric Hospitalization: Yes Protective Factors Assessment Employed: No Stable Relationships: Yes Good Rapport with Provider: Yes Discharge Data Lab Results 11/13/22 11/13/22 11/13/22 18:21 19:08 19:08 WBC 13.78 H RBC 3.94 L Hgb 13.1 Hct 37.6 MCV 95.4 MCH 33.2 MCHC 34.8 RDW Std Deviation 43.7 RDW Coeff of Yanet 12.5 Plt Count 271 MPV 9.9 Immature Gran % (Auto) 0.3 Neut % (Auto) 67.3 Lymph % (Auto) 22.9 Tyrrell % (Auto) 3.7 Eos % (Auto) 5.5 Baso % (Auto) 0.3 Neut # (Auto) 9.28 H Lymph # (Auto) 3.15 Tyrrell # (Auto) 0.51 Eos # (Auto) 0.76 H Baso # (Auto) 0.04 Immature Gran # (Auto) 0.04 Sodium 142 Potassium 3.7 Chloride 110 H Carbon Dioxide 29 Anion Gap 3 BUN 14 Creatinine 0.75 Est Cr Clr Drug Dosing Not Reportable Est GFR ( Amer) 111.6 Est GFR (Non-Af Amer) 96.3 BUN/Creatinine Ratio 18.7 Glucose 82 Calcium 8.7 Total Bilirubin 0.4 AST 13 ALT 10 Alkaline Phosphatase 46 Total Protein 6.4 Albumin 3.9 Globulin 2.5 Albumin/Globulin Ratio 1.6 TSH Urine Color Urine Appearance Urine pH Ur Specific [place] Urine Protein Urine Glucose (UA) Urine Ketones Urine Blood Urine Nitrite Urine Bilirubin Urine Urobilinogen Ur Leukocyte Esterase Urine WBC (Auto) Urine RBC (Auto) U Hyaline Cast (Auto) U Epithel Cells (Auto) Urine Bacteria (Auto) Urine Test Salicylates Urine Opiates Screen Ur Methadone, Qual Acetaminophen Urine Barbiturates Ur Phencyclidine (PCP) U Amphetamin/Meth Scrn MDMA (Ecstasy) Screen U OH-Alprazolam Confrm U Benzodiazepines Scrn 7-Amino Clonazepam Ur Nordiazepam Confirm U OH-ethylflurazepam U Lorazepam Cnf GC/MS U Oxazepam Confm GC/MS Ur Temazepam Confirm U OH-Triazolam Confirm U OH-Midazolam Confirm Ur Cocaine Metabolite U Marijuana (THC) Screen U Marijuana THC Carboxy Drug Screen Comment Ethyl Alcohol mg/dL SARS-CoV-2, RNA, NAAT NEGATIVE 11/13/22 11/13/22 11/13/22 19:08 19:08 19:08 WBC RBC Hgb Hct MCV MCH MCHC RDW Std Deviation RDW Coeff of Yanet Plt Count MPV Immature Gran % (Auto) Neut % (Auto) Lymph % (Auto) Tyrrell % (Auto) Eos % (Auto) Baso % (Auto) Neut # (Auto) Lymph # (Auto) Tyrrell # (Auto) Eos # (Auto) Baso # (Auto) Immature Gran # (Auto) Sodium Potassium Chloride Carbon Dioxide Anion Gap BUN Creatinine Est Cr Clr Drug Dosing Est GFR ( Amer) Est GFR (Non-Af Amer) BUN/Creatinine Ratio Glucose Calcium Total Bilirubin AST ALT Alkaline Phosphatase Total Protein Albumin Globulin Albumin/Globulin Ratio TSH 0.900 Urine Color Urine Appearance Urine pH Ur Specific [place] Urine Protein Urine Glucose (UA) Urine Ketones Urine Blood Urine Nitrite Urine Bilirubin Urine Urobilinogen Ur Leukocyte Esterase Urine WBC (Auto) Urine RBC (Auto) U Hyaline Cast (Auto) U Epithel Cells (Auto) Urine Bacteria (Auto) Urine Test Salicylates < 3.0 L Urine Opiates Screen Ur Methadone, Qual Acetaminophen < 3 L Urine Barbiturates Ur Phencyclidine (PCP) U Amphetamin/Meth Scrn MDMA (Ecstasy) Screen U OH-Alprazolam Confrm U Benzodiazepines Scrn 7-Amino Clonazepam Ur Nordiazepam Confirm U OH-ethylflurazepam U Lorazepam Cnf GC/MS U Oxazepam Confm GC/MS Ur Temazepam Confirm U OH-Triazolam Confirm U OH-Midazolam Confirm Ur Cocaine Metabolite U Marijuana (THC) Screen U Marijuana THC Carboxy Drug Screen Comment Ethyl Alcohol mg/dL < 10.0 SARS-CoV-2, RNA, NAAT 11/13/22 11/13/22 11/13/22 20:56 20:56 20:56 WBC RBC Hgb Hct MCV MCH MCHC RDW Std Deviation RDW Coeff of Yanet Plt Count MPV Immature Gran % (Auto) Neut % (Auto) Lymph % (Auto) Tyrrell % (Auto) Eos % (Auto) Baso % (Auto) Neut # (Auto) Lymph # (Auto) Tyrrell # (Auto) Eos # (Auto) Baso # (Auto) Immature Gran # (Auto) Sodium Potassium Chloride Carbon Dioxide Anion Gap BUN Creatinine Est Cr Clr Drug Dosing Est GFR ( Amer) Est GFR (Non-Af Amer) BUN/Creatinine Ratio Glucose Calcium Total Bilirubin AST ALT Alkaline Phosphatase Total Protein Albumin Globulin Albumin/Globulin Ratio TSH Urine Color Yellow Urine Appearance Cloudy A Urine pH 7.5 Ur Specific [place] 1.015 Urine Protein Negative Urine Glucose (UA) Negative Urine Ketones Negative Urine Blood Negative Urine Nitrite Negative Urine Bilirubin Negative Urine Urobilinogen Negative Ur Leukocyte Esterase Negative Urine WBC (Auto) 1-5 Urine RBC (Auto) 0-4 U Hyaline Cast (Auto) 1-5 U Epithel Cells (Auto) 20-30 H Urine Bacteria (Auto) Negative Urine Test Negative Salicylates Urine Opiates Screen Neg Ur Methadone, Qual Neg Acetaminophen Urine Barbiturates Neg Ur Phencyclidine (PCP) Neg U Amphetamin/Meth Scrn Neg MDMA (Ecstasy) Screen Neg U OH-Alprazolam Confrm U Benzodiazepines Scrn Pos H 7-Amino Clonazepam Ur Nordiazepam Confirm U OH-ethylflurazepam U Lorazepam Cnf GC/MS U Oxazepam Confm GC/MS Ur Temazepam Confirm U OH-Triazolam Confirm U OH-Midazolam Confirm Ur Cocaine Metabolite Neg U Marijuana (THC) Screen Pos H U Marijuana THC Carboxy Drug Screen Comment Ethyl Alcohol mg/dL SARS-CoV-2, RNA, NAAT 11/13/22 20:56 WBC RBC Hgb Hct MCV MCH MCHC RDW Std Deviation RDW Coeff of Yanet Plt Count MPV Immature Gran % (Auto) Neut % (Auto) Lymph % (Auto) Tyrrell % (Auto) Eos % (Auto) Baso % (Auto) Neut # (Auto) Lymph # (Auto) Tyrrell # (Auto) Eos # (Auto) Baso # (Auto) Immature Gran # (Auto) Sodium Potassium Chloride Carbon Dioxide Anion Gap BUN Creatinine Est Cr Clr Drug Dosing Est GFR ( Amer) Est GFR (Non-Af Amer) BUN/Creatinine Ratio Glucose Calcium Total Bilirubin AST ALT Alkaline Phosphatase Total Protein Albumin Globulin Albumin/Globulin Ratio TSH Urine Color Urine Appearance Urine pH Ur Specific [place] Urine Protein Urine Glucose (UA) Urine Ketones Urine Blood Urine Nitrite Urine Bilirubin Urine Urobilinogen Ur Leukocyte Esterase Urine WBC (Auto) Urine RBC (Auto) U Hyaline Cast (Auto) U Epithel Cells (Auto) Urine Bacteria (Auto) Urine Test Salicylates Urine Opiates Screen Ur Methadone, Qual Acetaminophen Urine Barbiturates Ur Phencyclidine (PCP) U Amphetamin/Meth Scrn MDMA (Ecstasy) Screen U OH-Alprazolam Confrm 359 H U Benzodiazepines Scrn 7-Amino Clonazepam NEGATIVE Ur Nordiazepam Confirm NEGATIVE U OH-ethylflurazepam NEGATIVE U Lorazepam Cnf GC/MS NEGATIVE U Oxazepam Confm GC/MS NEGATIVE Ur Temazepam Confirm NEGATIVE U OH-Triazolam Confirm NEGATIVE U OH-Midazolam Confirm NEGATIVE Ur Cocaine Metabolite U Marijuana (THC) Screen U Marijuana THC Carboxy 685 H Drug Screen Comment SEE NOTE Ethyl Alcohol mg/dL SARS-CoV-2, RNA, NAAT Hospital Course (1) Depression with suicidal ideation: (2) Unspecified psychosis not due to a substance or known physiological condition: (3) Cannabis use disorder: (4) Post traumatic stress disorder (PTSD): Plan 11/17/22: Cautious increase of duloxetine from 20 mg to 30 mg QAM. Continue clonazepam 0.5 mg Q12Hr, not PRN. Anticipate likely discharge tomorrow. 11/16/22: Change clonazepam from PRN to 0.5 mg BID scheduled since pt is taking it on arrival then 4 hours later. Continue nascent duloxetine trial. 10/15/22: Start duloxetine 20 mg daily with long-term goal of titrating to 60 mg. Noted that further increase would almost certainly be undertaken on an outpatient basis. Continue clonazepam 0.5 mg BID PRN for now. Mental Health & Subst Abuse Tx Therapist Name of Therapist: Kyle Bjorn Muller Therapist's Time of Therapist Appointment: continue to follow up as scheduled Therapy Appointment Comment: [address], [place] [address] Coding Clerks Supervisor Name of Coding Clerks Supervisor: ANTONIETTA/RON Euceda Phone Number for Coding Clerks Supervisor: [phone] Time of Appointment with Coding Clerks Supervisor: continue to follow up as scheduled Post Discharge Appointments Primary Care Physician Name Of Family Doctor/PCP: [facility] - [facility] Date of Future Appointment with PCP: 11/26/22 Time of Appointment with PCP: 1:45 PM Provider Appointment Comment: [address], [address], [place] Medical Front Desk Specialist Time of Appointment with Medical Front Desk Specialist: continue to follow up as scheduled Discharge Plan Discharge Items Patient Disposition: Home - Self-Care Reason For Visit: DEPRESSION,ANXIETY, SUICIDAL IDEATION Discharge Diagnosis: Cannabis-induced Psychotic Disorder Activity: Resume your previous activity Non-emergency contact: Primary Care Provider Call non-emergency contact if: you have any medication questions and your symptoms worsen Follow-up/Referrals: Margaux Clements CRNP [Primary Care Provider] - Diet: Regular Addtl Attending Provider Instructions: SPECIAL CARE INSTRUCTIONS: 1. Follow through with your scheduled aftercare appointments. If unable to keep an appointment, please call to reschedule. 2. Take your medication only as prescribed. Medication should not be changed or stopped without the approval of your doctor. In the event of worsening symptoms or concerns about side effects, contact your doctor immediately. 3. Utilize new healthy coping skills, anger management skills, and stress management skills learned during your hospitalization. Journal feelings and process them with a support person. Identify stressors or situations that may result in relapse, deterioration or inappropriate behaviors and develop a plan to deal with those issues. 4. If your coping skills are ineffective and you are in crisis, contact your outpatient providers for direction. If unable to reach your providers, please call the [facility] CRISIS LINE AT , go to the [facility] walk-in center at [address], [address], [place], or go to the closest Emergency Room. 5. Avoid alcohol and un-prescribed drugs. 6. You have been provided with the Mental Health Advance Directives Pamphlet for your review. 7. Your condition is stable for discharge to outpatient level of care, but recovery is an ongoing process. Ifthoughts to harm yourself or others return, follow the safety plan developed during your stay. Planning for a safe return home includes securing weapons. Our treatment team recommends weaponsbe removed from the home until your outpatient provider reassesses your progress. In rare cases where the items themselvescannot be removed, guns and ammunitionshould be secured separatelyand keys stored by a reliable personoutside of the home. If you were admitted on an involuntary commitment, the police or other legal authorities may be involved in this process. AFTERCARE APPOINTMENTS: * Please call your insurance company prior to your scheduled appointment to confirm your aftercare providers are covered. Take your insurance information to your appointments. WHO TO CALL AND WHEN: Medical Emergencies: For questions or emergencies related to your hospital stay, please contact the Inpatient Behavioral Health Unit at [phone]. A plane captain is on-call 27/04 for the Behavioral Health Unit for emerg encies At any time you feel your situation is an emergency, you may also call 911 immediately. Pending Studies at Discharge: No Stand-Alone Forms: My [facility] [employer], Smoking Cessation Medications and DC Order Prescriptions: New clonazepam 0.5 mg Tablet 0.5 mg PO Q12H 30 Days Qty: 60 0RF hydroxyzine HCl 25 mg Tablet 25 mg PO Q6H PRN (Reason: anxiety) 30 Days Qty: 100 0RF duloxetine 30 mg Capsule,Delayed Release(Dr/Ec) 30 mg PO QAM 30 Days Qty: 30 0RF Continued albuterol sulfate [Ventolin HFA] 90 mcg/actuation Hfa Aerosol Inhaler 2 puff INHALATION Q6H PRN (Reason: Shortness Of Breath Or Wheezing) Patient Comments: Patient ran out of script, meaning to get refilled Low-Ogestrel (28) 0.3-30 mg-mcg Tablet 1 tab PO DAILY Discontinued alprazolam 0.5 mg PO QID PRN (Reason: Anxiety) bupropion HCl [Wellbutrin SR] 100 mg tablet sustained-release 12 hr 100 mg PO DAILY Discharge Orders: Discharge Order (Routine); Ordered 11/18/22 Ordered By: Bereket Dugan Admission Data Admit Date/Time: 11/13/22 22:39 Attending Provider: Sasha Siegel Admit Provider: Sasha Siegel Primary Care Provider: Margaux Clements Coding Level of Care Code 83301 D/C day mgmt > 30 min Diagnoses Depression with suicidal ideation F32.A; R45.851 Unspecified psychosis not due to a substance or known physiological condition F29 Cannabis use disorder F12.90 Post traumatic stress disorder (PTSD) F43.10 Time Spent (min) 35
[2022-11-18] MEDS ORDERED: DESTROY THIS MEDICATION ONE (10:38)
== END 2022-11-18 11:25 | disposition home or self-care (01) | DRG 897 ==
LOC: ED 17:20 → 3S 22:39

== ENCOUNTER 2023-03-17 20:16 | Inpatient (IN) ==
--- NOTE | 2023-03-17 20:20 | Emergency Department Note ---
Impression & Plan Depression with suicidal ideation ED Provider Note NAME: ROOSEVELT VARGAS AGE: 48 SEX: F : 1975 ARRIVES VIA: [employer] INFORMANT: Patient, ED PROVIDER(S): Arnaud Gaytan MD CHIEF COMPLAINT: Outpatient referral, 302 MEDICAL DECISION MAKING: Patient presents as a 302 involuntary commitment secondary to suicidal statem ents that were made. Blood work was obtained. Work shows white count of 11 with a normal H&H and platelet count. Kidney function unremarkable with mild hyponatremia 134. Urinalysis shows the pos sibility of infection but the patient does not complain of anything. We will let this go to culture as the patient does not complain of any urinary symptoms. Positive for THC. COVID-negative. The patient was medically cleared seen evaluated by psych family independence case manager. Patient was ordered a nicotine patch. The patient was recommended for admission. After further discussion with the family independence case manager she thinks that it is reasonable that the patient signed in as a voluntary 201. Think this is unreasonable as when I spoke with the patient we did discuss that given what she had said that these are just things that she cannot say given her known history. Patient understands this mistake and does a dmit that she has been more depressed and would like treatment. Patient was evaluated by 3 S. and accepted for inpatient treatment Prior /Outside records reviewed: Did review most recent psychiatric progress note from Dr. Dugan. Patient reportedly preoccupied with ex-boyfriend for various doings and a possible tracking device appears that he was a super hacker. Patient was thought to have depression with suicidal ideations and psychosis cannabis use disorder and posttraumatic stress disorder. Patient was increased on her duloxetine continued on Klonopin. Differential diagnosis: Mood disorder, infection, hypoglycemia, electrolyte abnormalities, cardiac sources, intracerebral event, toxicologic, trauma, neurologic, as well as other pathologies. HPI: Patient presents due to concern for 302 involuntary commitment and petition. The patient had been seen by one of her mental exhibition specialist earlier today who had stated that she was having some passive thoughts and statements including that she hoped God would kill her. After further discussion the patient had related that she was in a go to the gun range after being told to have a good time she stated that she might accidentally shoot herself in the head. The patient currently denies any SI HI or AVH. The patient does not have any access to guns or weapons. Patient states her sleep and appetite have been okay. PAST MEDICAL HISTORY: See Below PAST SURGICAL HISTORY: See Below SOCIAL HISTORY: See Below HOME MEDICATIONS: See Below ALLERGIES: See Below VITALS: See Below PHYSICAL EXAMINATION: GENERAL: NAD, wearing glasses, non-toxic. EYE EXAM: Normal conjunctiva. PERRL, no anisocoria and EOM's grossly intact w/o pain. NECK: Supple, no nuchal rigidity, no adenopathy, non-tender. No signs of meningismus. FROM of the neck with good chin to chest and neck extension. No stridor. LUNGS: Clear to auscultation. Normal chest wall mechanics. HEART: NSR, no MRG. ABDOMEN: Abdomen soft, non-tender, no masses, no rebound or guarding. BACK: No CVA TTP. SKIN: No rashes and no bruising. UPPER EXTREMITIES: Upper extremities are grossly normal. LOWER EXTREMITIES: Grossly normal, no edema. NEURO EXAM: A&O x3, cranial nerves II-XII grossly intact, normal speech, moves all 4 extremities. Psych: Denies SI HI or AVH. 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) Hyperventilation syndrome Overdose by acetaminophen (03/15/14) Polysubstance overdose Rhabdomyolysis Sepsis Suicidal ideation Unspecified psychosis not due to a substance or known physiological condition Vaginal yeast infection Weakness Family History Brother Depression Father Depression Mother Depression Other Cancer Social History Smoking Status: Current some day smoker Tobacco Type: Cigarettes Hx Alcohol Use: Yes Alcohol type: other Preferred Language: Mosotho Communication Ability: Effective Visual Impairment: Partially Limited Hearing Ability: Normal Ice Plant Operator Required: No Beliefs That Will Affect Care: None marital status: Single Current Living Situation: Alone Current Living Situation Comment: with landlord current occupational status: unemployed Feels Safe at Home: Yes Gender Identity: Female Assistive Devices: Glasses Allergies Allergies Allergy/AdvReac Type Severity Reaction Status Date / Time animal dander Allergy Unknown Unknown Verified 02/18/21 14:27 tetanus toxoid, adsorbed Allergy Unknown Unknown Verified 02/15/21 11:23 Home Meds Home Medications Medication Instructions Recorded Confirmed albuterol sulfate 90 mcg/actuation 2 puff inhalation Q6H PRN 09/24/18 03/17/23 aerosol inhaler (Ventolin HFA) Shortness Of Breath Or Wheezing norgestrel 0.3 mg-ethinyl 1 tab PO DAILY 02/15/21 03/17/23 estradiol 30 mcg tablet (Low-Ogestrel (28)) buspirone 7.5 mg tablet 7.5 mg PO 1XD 03/17/23 03/17/23 clonazepam 0.5 mg tablet (Klonopin) 0.5 mg PO 1XD 03/17/23 03/17/23 duloxetine 60 mg capsule,delayed 60 mg PO 1XD 03/17/23 03/17/23 release (Cymbalta) Results & Data (ED) Vital Signs Vital Signs - 24 hr 03/17/23 20:56 Temperature 36.9 C Temperature Source Oral Pulse Rate 98 H Respiratory Rate 18 Respiratory Effort / Characteristics Non-Labored Respiratory Depth Normal Blood Pressure 129/85 Blood Pressure Mean 99 Pulse Oximetry 98 Oxygen Delivery Method Room Air Sepsis Recent Fever Within 48 Hours No Sepsis New/Unexplained Change in Mental Status No Sepsis Action Taken by Nursing No Action Required Home Medications Current Medication List: was personally reviewed by me Laboratory Data Attestation: I reviewed the patient's lab results. 03/17/23 20:50 03/17/23 20:50 Lab Results 03/17/23 03/17/23 03/17/23 Range/Units 20:50 20:50 20:50 WBC 11.03 H (4.8-10.8) K/ul RBC 4.71 (4.20-5.40) M/uL Hgb 15.6 (12.0-16.0) g/dl Hct 44.3 (37.0-47.0) % MCV 94.1 (80.0-100.0) fL MCH 33.1 (25.0-34.0) pg MCHC 35.2 (32.0-36.0) g/dL RDW Std Deviation 46.1 (36.4-46.3) fL RDW Coeff of [place] 13.3 (11.5-14.5) % Plt Count 268 (130-400) K/uL MPV 10.4 (9.4-12.4) fL Immature Gran % (Auto) 0.2 % Neut % (Auto) 46.0 % Lymph % (Auto) 35.1 % [place] % (Auto) 6.7 % Eos % (Auto) 11.3 % Baso % (Auto) 0.7 % Neut # (Auto) 5.07 (1.40-6.50) K/uL Lymph # (Auto) 3.87 H (1.2-3.4) K/uL [place] # (Auto) 0.74 H (0.11-0.59) K/uL Eos # (Auto) 1.25 H (0-0.50) K/uL Baso # (Auto) 0.08 (0-0.2) K/uL Immature Gran # (Auto) 0.02 (0.01-0.20) K/uL Sodium 134 L (136-145) mmol/L Potassium 3.6 (3.5-5.1) mmol/L Chloride 104 (98-107) mmol/L Carbon Dioxide 22 (21-32) mmol/L Anion Gap 8 (3-11) BUN 14 (6-23) mg/dl Creatinine 0.77 (0.6-1.2) mg/dl Est Cr Clr Drug Dosing Not Reportable Est GFR ( Amer) 107.3 ml/min Est GFR (Non-Af Amer) 92.6 ml/min BUN/Creatinine Ratio 18.2 (10-20) Glucose 89 (70-99(Fasting)) mg/dl Calcium 9.6 (8.6-10.3) mg/dl Total Bilirubin 0.6 (0.2-1.0) mg/dl AST 20 (13-39) U/L ALT 19 (7-52) U/L Alkaline Phosphatase 56 (34-104) U/L Total Protein 7.5 (6.0-8.3) gm/dl Albumin 4.6 (3.4-5.0) gm/dl Globulin 2.9 (2.5-4.0) gm/dl Albumin/Globulin Ratio 1.6 (0.9-2) TSH 1.608 (0.300-4.500) uIu/ml Urine Color Urine Appearance (Clear) Urine pH (4.5-7.5) Ur Specific [place] (1.000-1.030) Urine Protein (Negative) Urine Glucose (UA) (Negative) Urine Ketones (Negative) Urine Blood (Negative) Urine Nitrite (Negative) Urine Bilirubin (Negative) Urine Urobilinogen (Negative) Ur Leukocyte Esterase (Negative) Urine WBC (Auto) (0-5) /hpf Urine RBC (Auto) (0-4) /hpf U Hyaline Cast (Auto) (0-5) /lpf U Epithel Cells (Auto) (0-5) /lpf Urine Bacteria (Auto) (Negative) Urine Test (Negative) Salicylates (3.0-30) mg/dl Urine Opiates Screen (Neg) Ur Methadone, Qual (Neg) Acetaminophen (10-30) ug/ml Urine Barbiturates (Neg) Ur Phencyclidine (PCP) (Neg) U Amphetamin/Meth Scrn (Neg) MDMA (Ecstasy) Screen (Neg) U Benzodiazepines Scrn (Neg) Ur Cocaine Metabolite (Neg) U Marijuana (THC) Screen (Neg) Ethyl Alcohol mg/dL (<10.0) mg/dl SARS-CoV-2, RNA, NAAT (NEGATIVE) 03/17/23 03/17/23 03/17/23 Range/Units 20:50 20:50 Unknown WBC (4.8-10.8) K/ul RBC (4.20-5.40) M/uL Hgb (12.0-16.0) g/dl Hct (37.0-47.0) % MCV (80.0-100.0) fL MCH (25.0-34.0) pg MCHC (32.0-36.0) g/dL RDW Std Deviation (36.4-46.3) fL RDW Coeff of Yan[place] (11.5-14.5) % Plt Count (130-400) K/uL MPV (9.4-12.4) fL Immature Gran % (Auto) % Neut % (Auto) % Lymph % (Auto) % [place] % (Auto) % Eos % (Auto) % Baso % (Auto) % Neut # (Auto) (1.40-6.50) K/uL Lymph # (Auto) (1.2-3.4) K/uL [place] # (Auto) (0.11-0.59) K/uL Eos # (Auto) (0-0.50) K/uL Baso # (Auto) (0-0.2) K/uL Immature Gran # (Auto) (0.01-0.20) K/uL Sodium (136-145) mmol/L Potassium (3.5-5.1) mmol/L Chloride (98-107) mmol/L Carbon Dioxide (21-32) mmol/L Anion Gap (3-11) BUN (6-23) mg/dl Creatinine (0.6-1.2) mg/dl Est Cr Clr Drug Dosing Est GFR ( Amer) ml/min Est GFR (Non-Af Amer) ml/min BUN/Creatinine Ratio (10-20) Glucose (70-99(Fasting)) mg/dl Calcium (8.6-10.3) mg/dl Total Bilirubin (0.2-1.0) mg/dl AST (13-39) U/L ALT (7-52) U/L Alkaline Phosphatase (34-104) U/L Total Protein (6.0-8.3) gm/dl Albumin (3.4-5.0) gm/dl Globulin (2.5-4.0) gm/dl Albumin/Globulin Ratio (0.9-2) TSH (0.300-4.500) uIu/ml Urine Color Yellow Urine Appearance Cloudy A (Clear) Urine pH 6.0 (4.5-7.5) Ur Specific [place] 1.015 (1.000-1.030) Urine Protein Negative (Negative) Urine Glucose (UA) Negative (Negative) Urine Ketones Trace H (Negative) Urine Blood 1+ H (Negative) Urine Nitrite Negative (Negative) Urine Bilirubin Negative (Negative) Urine Urobilinogen Negative (Negative) Ur Leukocyte Esterase Trace H (Negative) Urine WBC (Auto) 10-30 H (0-5) /hpf Urine RBC (Auto) 5-10 H (0-4) /hpf U Hyaline Cast (Auto) 10-30 H (0-5) /lpf U Epithel Cells (Auto) >30 H (0-5) /lpf Urine Bacteria (Auto) 1+ H (Negative) Urine Test (Negative) Salicylates < 3.0 L (3.0-30) mg/dl Urine Opiates Screen (Neg) Ur Methadone, Qual (Neg) Acetaminophen < 3 L (10-30) ug/ml Urine Barbiturates (Neg) Ur Phencyclidine (PCP) (Neg) U Amphetamin/Meth Scrn (Neg) MDMA (Ecstasy) Screen (Neg) U Benzodiazepines Scrn (Neg) Ur Cocaine Metabolite (Neg) U Marijuana (THC) Screen (Neg) Ethyl Alcohol mg/dL < 10.0 (<10.0) mg/dl SARS-CoV-2, RNA, NAAT (NEGATIVE) 03/17/23 03/17/23 03/17/23 Range/Units Unknown Unknown Unknown WBC (4.8-10.8) K/ul RBC (4.20-5.40) M/uL Hgb (12.0-16.0) g/dl Hct (37.0-47.0) % MCV (80.0-100.0) fL MCH (25.0-34.0) pg MCHC (32.0-36.0) g/dL RDW Std Deviation (36.4-46.3) fL RDW Coeff of [place] (11.5-14.5) % Plt Count (130-400) K/uL MPV (9.4-12.4) fL Immature Gran % (Auto) % Neut % (Auto) % Lymph % (Auto) % [place] % (Auto) % Eos % (Auto) % Baso % (Auto) % Neut # (Auto) (1.40-6.50) K/uL Lymph # (Auto) (1.2-3.4) K/uL [place] # (Auto) (0.11-0.59) K/uL Eos # (Auto) (0-0.50) K/uL Baso # (Auto) (0-0.2) K/uL Immature Gran # (Auto) (0.01-0.20) K/uL Sodium (136-145) mmol/L Potassium (3.5-5.1) mmol/L Chloride (98-107) mmol/L Carbon Dioxide (21-32) mmol/L Anion Gap (3-11) BUN (6-23) mg/dl Creatinine (0.6-1.2) mg/dl Est Cr Clr Drug Dosing Est GFR ( Amer) ml/min Est GFR (Non-Af Amer) ml/min BUN/Creatinine Ratio (10-20) Glucose (70-99(Fasting)) mg/dl Calcium (8.6-10.3) mg/dl Total Bilirubin (0.2-1.0) mg/dl AST (13-39) U/L ALT (7-52) U/L Alkaline Phosphatase (34-104) U/L Total Protein (6.0-8.3) gm/dl Albumin (3.4-5.0) gm/dl Globulin (2.5-4.0) gm/dl Albumin/Globulin Ratio (0.9-2) TSH (0.300-4.500) uIu/ml Urine Color Urine Appearance (Clear) Urine pH (4.5-7.5) Ur Specific [place] (1.000-1.030) Urine Protein (Negative) Urine Glucose (UA) (Negative) Urine Ketones (Negative) Urine Blood (Negative) Urine Nitrite (Negative) Urine Bilirubin (Negative) Urine Urobilinogen (Negative) Ur Leukocyte Esterase (Negative) Urine WBC (Auto) (0-5) /hpf Urine RBC (Auto) (0-4) /hpf U Hyaline Cast (Auto) (0-5) /lpf U Epithel Cells (Auto) (0-5) /lpf Urine Bacteria (Auto) (Negative) Urine Test Negative (Negative) Salicylates (3.0-30) mg/dl Urine Opiates Screen Neg (Neg) Ur Methadone, Qual Neg (Neg) Acetaminophen (10-30) ug/ml Urine Barbiturates Neg (Neg) Ur Phencyclidine (PCP) Neg (Neg) U Amphetamin/Meth Scrn Neg (Neg) MDMA (Ecstasy) Screen Neg (Neg) U Benzodiazepines Scrn Neg (Neg) Ur Cocaine Metabolite Neg (Neg) U Marijuana (THC) Screen Pos H (Neg) Ethyl Alcohol mg/dL (<10.0) mg/dl SARS-CoV-2, RNA, NAAT NEGATIVE (NEGATIVE) Administered Medications Discontinued Medications Nicotine (Nicotine 14 Mg/24 Hr Patch) 14 mg TD NOW STA Stop: 03/17/23 23:18 Last Admin: 03/17/23 23:22 Dose: 14 mg Documented By: [facility] Discharge Plan Visit Data Chief Complaint: Mental Health Evaluation Stated Complaint: 302 ED Provider: Arnaud Gaytan Discharge Problem: Depression with suicidal ideation Forms Stand Alone Forms: My [facility], Suicide Prevention Resources Prescriptions Prescriptions: No Action albuterol sulfate [Ventolin HFA] 90 mcg/actuation Hfa Aerosol Inhaler 2 puff INHALATION Q6H PRN (Reason: Shortness Of Breath Or Wheezing) Patient Comments: Patient ran out of script, meaning to get refilled Low-Ogestrel (28) 0.3-30 mg-mcg Tablet 1 tab PO DAILY clonazepam [Klonopin] 0.5 mg tablet 0.5 mg PO 1XD buspirone 7.5 mg tablet 7.5 mg PO 1XD duloxetine [Cymbalta] 60 mg capsule,delayed release(DR/EC) 60 mg PO 1XD Referrals Referrals: Margaux Clements CRNP [Primary Care Provider] -
[2023-03-17 21:11] LABS: Basophils # (auto) 0.08 K/uL (0-0.2); Basophils % (auto) 0.7 %; Eosinophils # (auto) 1.25 K/uL (0-0.50); Eosinophils % (auto) 11.3 %; Hematocrit (blood only) 44.3 % (37.0-47.0); Hemoglobin 15.6 g/dl (12.0-16.0); Immature Granulocytes # (auto) 0.02 K/uL (0.01-0.20); Immature Granulocytes % (auto) 0.2 %; Lymphocytes # (auto) 3.87 K/uL (1.2-3.4); Lymphocytes % (auto) 35.1 %; Mean Corpuscular Hemoglobin 33.1 pg (25.0-34.0); Mean Corpuscular Hgb Conc 35.2 g/dL (32.0-36.0); Mean Corpuscular Volume 94.1 fL (80.0-100.0); Mean Platelet Volume 10.4 fL (9.4-12.4); Monocytes # (auto) 0.74 K/uL (0.11-0.59); Monocytes % (auto) 6.7 %; Neutrophils # (auto) 5.07 K/uL (1.40-6.50); Platelet Count 268 K/uL (130-400); RDW Coefficient of Variation 13.3 % (11.5-14.5); RDW Standard Deviation 46.1 fL (36.4-46.3); Red Blood Count 4.71 M/uL (4.20-5.40); White Blood Count 11.03 K/ul (4.8-10.8)
[2023-03-17 21:13] LABS: Pregnancy Test, Urine Negative (Negative)
[2023-03-17 21:14] LABS: Appearance Urine Cloudy (Clear); Bacteria Urine Automated 1+ (Negative); Bilirubin Urine Negative (Negative); Blood Urine 1+ (Negative); Color Urine Yellow; Epithelial Cell Urine Auto >30 /lpf (0-5); Glucose Urine UA Negative (Negative); Ketones Urine Trace (Negative); Leukocyte Esterase Urine Trace (Negative); Nitrite Urine Negative (Negative); Protein Urine Negative (Negative); Specific Gravity Urine 1.015 (1.000-1.030); Urobilinogen Urine Negative (Negative)
[2023-03-17 21:27] LABS: Albumin Level 4.6 gm/dl (3.4-5.0); Anion Gap 8 (3-11); Bilirubin,Total 0.6 mg/dl (0.2-1.0); Calcium 9.6 mg/dl (8.6-10.3); Carbon Dioxide 22 mmol/L (21-32); Chloride 104 mmol/L (98-107); Potassium 3.6 mmol/L (3.5-5.1); Sodium 134 mmol/L (136-145)
[2023-03-17 21:30] LABS: Acetaminophen < 3 ug/ml (10-30); Salicylate < 3.0 mg/dl (3.0-30)
[2023-03-17 21:33] LABS: Alanine Aminotransferase 19 U/L (7-52); Albumin Globulin Ratio 1.6 (0.9-2); Alkaline Phosphatase 56 U/L (34-104); Aspartate Aminotransferase 20 U/L (13-39); BUN Creatinine Ratio 18.2 (10-20); Blood Urea Nitrogen 14 mg/dl (6-23); Est GFR (African American) 107.3 ml/min; Est GFR (Non-African American) 92.6 ml/min; Globulin 2.9 gm/dl (2.5-4.0); Glucose 89 mg/dl (70-99(Fasting)); Total Protein 7.5 gm/dl (6.0-8.3)
[2023-03-17 21:47] LABS: Amphetamines+Metham, Urine Neg (Neg); Barbiturates, Urine Neg (Neg); Benzodiazepine, Urine Neg (Neg); Cocaine, Urine Neg (Neg); MDMA (Ecstacy), Urine Neg (Neg); Methadone, Urine Neg (Neg); Opiate, Urine Neg (Neg); Phencyclidine, Urine Neg (Neg)
[2023-03-17] MEDS ORDERED: NICOTINE 14 MG/24 HR PATCH TD STA (23:17)
[2023-03-17] MEDS ORDERED: ALBUTEROL HFA 8 GM INHALER INH PRN (23:17)
[2023-03-18] MEDS ORDERED: BISMUTH SUBSALICYLATE LIQD 236 ML PO PRN (00:05)
[2023-03-18] MEDS ORDERED: SODIUM CHLORIDE 0.65% NA SOLN 45 ML (OCEAN) PRN (00:05)
[2023-03-18] MEDS ORDERED: MAGNESIUM HYDROXIDE SUSP 30 ML UDC PO PRN (00:05)
[2023-03-18] MEDS ORDERED: ALUMINUM/MAGNESIUM SUSP 30 ML UDC PO PRN (00:05)
[2023-03-18] MEDS ORDERED: hydrOXYzine HCl 25 MG TAB PO PRN ×2 (00:05)
[2023-03-18] MEDS ORDERED: ACETAMINOPHEN 325 MG TAB PO PRN (00:05)
[2023-03-18] MEDS ORDERED: OLANZapine 5 MG TABLET PO PRN (00:59)
[2023-03-18] MEDS ORDERED: ETHINYL ESTRADIOL PO SCH (09:00)
[2023-03-18] MEDS ORDERED: [UNRECOGNIZED DRUG - OTHER] PO SCH (09:00)
[2023-03-18] MEDS ORDERED: NORGESTREL PO SCH (09:00)
[2023-03-18] MEDS ORDERED: DULoxetine HCL 60 MG CAP PO SCH (09:00)
[2023-03-18] MEDS ORDERED: clonazePAM 0.5 MG TAB PO SCH (09:00)
[2023-03-18] MEDS ORDERED: busPIRone 7.5 MG TAB PO SCH (09:00)
[2023-03-18] MEDS: busPIRone 7.5 MG TAB PO SCH ×2 (10:12→20:39)
--- NOTE | 2023-03-18 14:56 | Psychiatric Consultation ---
Date of Consultation March 18, 2023 Psych History Chief Complaint "I was venting, it was a joke". History of Present Illness Rakesh was brought to the hospital by police on a 302 warrant after making statements of suicide to her showcase maker. She feels like this is a misunderstanding and she states she would never act on suicide. She told the CM her friends would be going to a shooting range and she could throw herself in front of them but states this was a joke and she would never do this nor would she ever traumatize her friends in this way. Lately she feels like she's been feeling better after starting buspar a week ago and Cymbalta helps with nerve pain and her mood. She feels like her current medications are working well. She endorses some depression related to seeing someone recently and the grief from their breakup. She thinks this lead her to vent to her therapist but is trying to stay hopeful. She continues to have anxiety but has been trying to exercise and practice mindfulness. Past Psychiatric History Current Psychiatric Diagnosis: Unspecified Psychosis Do You Have Access To A Gun?: No History of Previous Suicide Attempt: Yes Allergies Allergy/AdvReac Type Severity Reaction Status Date / Time animal dander Allergy Unknown Unknown Verified 02/18/21 14:27 tetanus toxoid, adsorbed Allergy Unknown Unknown Verified 02/15/21 11:23 Home Medications Medication Instructions Recorded Confirmed Type albuterol sulfate 90 mcg/actuation 2 puff inhalation Q6H PRN 09/24/18 03/17/23 History aerosol inhaler (Ventolin HFA) Shortness Of Breath Or Wheezing norgestrel 0.3 mg-ethinyl 1 tab PO DAILY 02/15/21 03/17/23 History estradiol 30 mcg tablet (Low-Ogestrel (28)) buspirone 7.5 mg tablet 7.5 mg PO BID 03/17/23 03/18/23 History clonazepam 0.5 mg tablet (Klonopin) 0.5 mg PO TID 03/17/23 03/18/23 History duloxetine 60 mg capsule,delayed 60 mg PO DAILY 03/17/23 03/18/23 History release (Cymbalta) Patient History Medical History Admitted to intensive care unit (Unknown) Anemia Bilateral breast implants (01/22/13) Fever (04/25/14) 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) Hyperventilation syndrome Overdose by acetaminophen (03/15/14) Polysubstance overdose Rhabdomyolysis Sepsis Suicidal ideation Unspecified psychosis not due to a substance or known physiological condition Vaginal yeast infection Weakness Family History Brother Depression Father Depression Mother Depression Other Cancer Social History Smoking Status: Current some day smoker Tobacco Type: Cigarettes Hx Alcohol Use: Yes Alcohol type: other Preferred Language: Maltese Communication Ability: Effective Visual Impairment: Partially Limited Hearing Ability: Normal Car Cooper Required: No Beliefs That Will Affect Care: None marital status: Single Current Living Situation: Alone Current Living Situation Comment: with landlord current occupational status: unemployed Feels Safe at Home: Yes Gender Identity: Female Assistive Devices: Glasses Physical Exam Vital Signs (Past 24 Hours): Last Vital Signs Temp 36.8 C 03/18/23 01:01 Pulse 69 03/18/23 01:01 Resp 18 03/18/23 01:01 BP 142/88 H 03/18/23 01:01 Pulse Ox 98 03/17/23 20:56 O2 Del Method Room Air 03/17/23 20:56 Results & Data (PSY) Medications Administered Buspirone HCl (Buspirone 7.5 Mg Tab) 7.5 mg PO BID MARY Stop: 04/17/23 08:59 Last Admin: 03/18/23 10:12 Dose: 7.5 mg Documented By: BNT Hydroxyzine HCl (Hydroxyzine Hcl 25 Mg Tab) 50 mg PO HSZ PRN PRN Reason: Insomnia Stop: 04/17/23 00:04 Last Admin: 03/18/23 01:27 Dose: 50 mg Documented By: RDS Coding Diagnoses
[2023-03-18] MEDS: DULoxetine HCL 60 MG CAP PO SCH (15:19)
--- NOTE | 2023-03-18 15:22 | History & Physical ---
Date of Service March 18, 2023 Impression / Recommendations Impression 48 year old woman with a history of depression, anxiety, PTSD, body dysmorphia, cannabis-induced psychosis who was admitted on a 302 commitment for suicidal statements with plans. Diagnostically she is now minimizing any depressive symptoms or statements made prior to admission as jokes and feels that her mood has been fairly stable which makes it more difficult to feel confident in making an accurate diagnosis. However, based on her history and report of stressor of recent breakup most consistent with unspecified depression including differential of MDD exacerbation versus adjustment disorder with depression and anxiety. She is deemed in need of psychiatric hospitalization for diagnostic clarification, safety and stabilization, medication management and development of further coping skills. She prefers not to make any medication changes. Discussed medication treatment options in detail. Discussed risks, benefits and alternatives. Patient would like to continue with and consented to buspar and duloxetine and Klonopin for depression, anxiety, PTSD and chronic nerve pain. Reviewed side effects including but not limited to: GI, BURNETTE, sexual side effects with duloxetine; dizziness with buspar; addictive potential/fatal respiratory depression/impact on driving or operating heavy machinery with Klonopin. I do have concerns about her ongoing Klonopin use, and that the dose has increased since her last admission, given her recreational substance use. Will attempt to begin taper while here. MNPR given history of paranoia and trauma (1) Depression with suicidal ideation: (2) Post traumatic stress disorder (PTSD): (3) Panic disorder [episodic paroxysmal anxiety]: Plan 03/18/2023: The patient was admitted to the [facility] ([facility] mental health unit) on q15 min checks (behavioral with suicide precautions) for safety. The patient will participate in group, recreational, and milieu therapies and will be offered additional individual and family sessions as clinically appropriate. -Continue prior to admission duloxetine 60mg daily, buspar 7.5mg BID -For now will continue Klonopin 0.5mg TID but will change to prn in effort to begin taper to at least 0.5mg BID Inventory Assets Strengths: supportive relationships, willing to get treatment Needs: safety and stabilization, medication adjustment, additional coping skills, increased outpatient services Suicide Risk Level Suicide Risk Level: High-Moderate (q15 min suicide checks) (depression with SI with plan prior to admission but feels safe in the hospital, able to safety contract and agrees to let nursing/staff know should they develop plan, intent or feel unable to remain safe. ) Risk Factors Assessment Male: No : Yes Do You Have Access To A Gun?: No Health Problems: Yes (chronic nerve pain) Substance Use Disorders: Yes (recreationally substance use) Previous Attempt: Yes Family History of Suicide: No Previous Psychiatric Hospitalization: Yes Protective Factors Assessment Employed: No ([employer] disability) Stable Relationships: No Psychiatric History Identifying Data ROOSEVELT HAIDER is a 48-year-old woman who currently lives in [place] alone, has a history of depression, anxiety, PTSD, body dysmorphia and cannabis-induced psychotic disorder, and was admitted on 03/18/23 00:05 on a 302 involuntary commitment for suicidal statements with plan. Chief Complaint "I was venting, it was a joke". History of Present Illness Roosevelt was brought to the hospital by police on a 302 warrant after making statements of suicide to her case planner. She feels like this is a misunderstanding and she states she would never act on these thoughts of suicide. She recalls discussing her recent breakup with her CM and "joked" that her friends would be going to a shooting range later that day and she could go and just throw herself in front of them. However, now she states this was always meant to be a joke and she would never do this nor would she ever traumatize her friends in this way. Collateral from 302 petition completed by her CM states: "I saw Roosevelt Haider today, March 17 2023, for a regularly scheduled appointment. Roosevelt reported feeling depressed and wanting to . She said that she was praying to God to kill her. She asked during the appointment if I could pray to God as well to ask Him to kill her. Roosevelt was also discussing what her friends' and family's reactions would be if she were to like that. Before I left her apartment, Roosevelt mentioned that she was going to the shooting range. I told her as I was leaving that I hope she had a good time and she began musing to herself that maybe she should "accidentally" shoot herself in the head or that she should "accidentally" run in front of other people while they were shooting. She mused that no one would know if it wasn't an accident." Lately she's been feeling better after starting buspar a week ago and Cymbalta helps with nerve pain and her mood. She feels like her current medications are working well. She endorses some depression related to seeing someone recently and the grief from their breakup. She reports she is trying to stay hopeful but the breakup brought some worries of always being alone or never being able to find someone to spend her life with. She continues to have anxiety but has been trying to exercise and practice mindfulness which she finds helpful. She feels Klonopin helps her sleep and her pain. Her appetite has been stable. Describes her frustration that she was diagnosed with psychosis during her previous admission as she states the events with her ex-boyfriend regarding his participation with child pornography were legitimate and that she spoke with [place] police and the [facility] previously. Past Psychiatric History Current Psychiatric Diagnosis: Depression, Anxiety, PTSD, body dysmorphia Outpatient Services: [facility] for medication management, had been seeing a psychiatrist at [facility] but it was very expensive; [facility]; [facility] specialist counselor every week; has been seeing a counselor Yohana through [facility] Do You Have Access To A Gun?: No History of Previous Suicide Attempt: Yes (3x) Describe Attempts in the Past: overdose on acetaminophen in 2017, other prior attempts via overdose Past Medication Trials: recalls Migelonocindy and "many others", hx ECT Past Head Trauma/Neuro History History of Concussion/Seizure: No Allergies Allergy/AdvReac Type Severity Reaction Status Date / Time animal dander Allergy Unknown Unknown Verified 02/18/21 14:27 tetanus toxoid, adsorbed Allergy Unknown Unknown Verified 02/15/21 11:23 Home Medications Medication Instructions Recorded Confirmed Type albuterol sulfate 90 mcg/actuation 2 puff inhalation Q6H PRN 09/24/18 03/17/23 History aerosol inhaler (Ventolin HFA) Shortness Of Breath Or Wheezing norgestrel 0.3 mg-ethinyl 1 tab PO DAILY 02/15/21 03/17/23 History estradiol 30 mcg tablet (Low-Ogestrel (28)) buspirone 7.5 mg tablet 7.5 mg PO BID 03/17/23 03/18/23 History clonazepam 0.5 mg tablet (Klonopin) 0.5 mg PO TID 03/17/23 03/18/23 History duloxetine 60 mg capsule,delayed 60 mg PO DAILY 03/17/23 03/18/23 History release (Cymbalta) Family History Family History of: Refuses To Discuss Alcohol History Hx of Alcohol Use Over the Past 12 Months: Yes ("occasional" use) AUDIT Total Score: 1 Smoking Use Have You Smoked or Used Tobacco Products in the Last 30 Days: Yes tobacco type: cigarettes Smoking Status: Current some day smoker Smoking packs per day: 0.5 Substance History Hx of Prescription Med Misuse Over the Past 12 Months: No (deneis) Hx of Over the Counter Med Misuse Over the Past 12 Months: Yes (uses Kratom) Hx of Inhalent Misuse Over the Past 12 Months: No (denies) Hx of Organic Substance Use Over the Past 12 Months: Yes (marijuana user) Hx of Illegal Substances/Street Drug Use Over Past 12 Months: No (denies) Problems as a Result of Past Substance Use: None Identified Personal History Living Arrangements: Apartment Born In: [place], [place] Highest Grade Completed: Graduate School Employment Status: Disabled Marital Status: Single Number Of Children: 0 Beliefs That Will Affect Care: None Hx Legal Problems: No Hx Traumatic Life Events: Yes Patient History Medical History Admitted to intensive care unit (Unknown) Anemia Bilateral breast implants (01/22/13) Fever (04/25/14) 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) Hyperventilation syndrome Overdose by acetaminophen (03/15/14) Polysubstance overdose Rhabdomyolysis Sepsis Suicidal ideation Unspecified psychosis not due to a substance or known physiological condition Vaginal yeast infection Weakness Family History Brother Depression Father Depression Mother Depression Other Cancer Social History Smoking Status: Current some day smoker Tobacco Type: Cigarettes Hx Alcohol Use: Yes Alcohol type: other Preferred Language: Citizen Of [place] Communication Ability: Effective Visual Impairment: Partially Limited Hearing Ability: Normal Equipment Tech Required: No Beliefs That Will Affect Care: None marital status: Single Current Living Situation: Alone Current Living Situation Comment: with landlord current occupational status: unemployed Feels Safe at Home: Yes Gender Identity: Female Assistive Devices: Glasses Review of Systems Review of Systems: All systems reviewed & are unremarkable except as noted in HPI & below Physical Exam Psychiatric: Orientation: alert and oriented x 3 Apperance: appropriately dressed and appropriately groomed Eye Contact: good eye contact Motor Behavior: no abnormal motor movements Speech: normal rate/rhythm/volume of speech Affect: + anxious affect and + constricted affect Mood: + depressed mood and + anxious mood Thought Process: goal directed thought process Thought Content: reality based without delusions Suicidal Thoughts: denies suicidal thoughts (but made statements prior to admission), denies suicidal plan and denies suicidal intent Homicidal Thoughts: denies homicidal thoughts Hallucinations: no auditory hallucinations and no visual hallucinations Cognition: recent memory grossly intact, remote memory grossly intact, attention grossly intact and language grossly intact Estimated Intelligence: consistent with education level Insight: + limited insight Judgment: + limited judgement Vital Signs (Past 24 Hours): Last Vital Signs Temp 36.8 C 03/18/23 01:01 Pulse 69 03/18/23 01:01 Resp 18 03/18/23 01:01 BP 142/88 H 03/18/23 01:01 Pulse Ox 98 03/17/23 20:56 O2 Del Method Room Air 03/17/23 20:56 Exam Statement: A physical exam was performed in the ED by Dr. Gaytan for the purposes of medical clearance. I accept that physical as correct and adequate for the purposes of the inpatient physical exam. Results & Data ([facility]) Laboratory Results Laboratory Results - last 24 hr 03/17/23 03/17/23 03/17/23 20:50 20:50 20:50 WBC 11.03 H RBC 4.71 Hgb 15.6 Hct 44.3 MCV 94.1 MCH 33.1 MCHC 35.2 RDW Std Deviation 46.1 RDW Coeff of Yanet 13.3 Plt Count 268 MPV 10.4 Immature Gran % (Auto) 0.2 Neut % (Auto) 46.0 Lymph % (Auto) 35.1 Blanco % (Auto) 6.7 Eos % (Auto) 11.3 Baso % (Auto) 0.7 Neut # (Auto) 5.07 Lymph # (Auto) 3.87 H Blanco # (Auto) 0.74 H Eos # (Auto) 1.25 H Baso # (Auto) 0.08 Immature Gran # (Auto) 0.02 Sodium 134 L Potassium 3.6 Chloride 104 Carbon Dioxide 22 Anion Gap 8 BUN 14 Creatinine 0.77 Est Cr Clr Drug Dosing Not Reportable Est GFR ( Amer) 107.3 Est GFR (Non-Af Amer) 92.6 BUN/Creatinine Ratio 18.2 Glucose 89 Calcium 9.6 Total Bilirubin 0.6 AST 20 ALT 19 Alkaline Phosphatase 56 Total Protein 7.5 Albumin 4.6 Globulin 2.9 Albumin/Globulin Ratio 1.6 TSH 1.608 Urine Color Urine Appearance Urine pH Ur Specific [place] Urine Protein Urine Glucose (UA) Urine Ketones Urine Blood Urine Nitrite Urine Bilirubin Urine Urobilinogen Ur Leukocyte Esterase Urine WBC (Auto) Urine RBC (Auto) U Hyaline Cast (Auto) U Epithel Cells (Auto) Urine Bacteria (Auto) Urine Test Salicylates Urine Opiates Screen Ur Methadone, Qual Acetaminophen Urine Barbiturates Ur Phencyclidine (PCP) U Amphetamin/Meth Scrn MDMA (Ecstasy) Screen U Benzodiazepines Scrn Ur Cocaine Metabolite U Marijuana (THC) Screen U Marijuana THC Carboxy Drug Screen Comment Ethyl Alcohol mg/dL SARS-CoV-2, RNA, NAAT 03/17/23 03/17/23 03/17/23 20:50 20:50 Unknown WBC RBC Hgb Hct MCV MCH MCHC RDW Std Deviation RDW Coeff of Yanet Plt Count MPV Immature Gran % (Auto) Neut % (Auto) Lymph % (Auto) Blanco % (Auto) Eos % (Auto) Baso % (Auto) Neut # (Auto) Lymph # (Auto) Blanco # (Auto) Eos # (Auto) Baso # (Auto) Immature Gran # (Auto) Sodium Potassium Chloride Carbon Dioxide Anion Gap BUN Creatinine Est Cr Clr Drug Dosing Est GFR ( Amer) Est GFR (Non-Af Amer) BUN/Creatinine Ratio Glucose Calcium Total Bilirubin AST ALT Alkaline Phosphatase Total Protein Albumin Globulin Albumin/Globulin Ratio TSH Urine Color Yellow Urine Appearance Cloudy A Urine pH 6.0 Ur Specific [place] 1.015 Urine Protein Negative Urine Glucose (UA) Negative Urine Ketones Trace H Urine Blood 1+ H Urine Nitrite Negative Urine Bilirubin Negative Urine Urobilinogen Negative Ur Leukocyte Esterase Trace H Urine WBC (Auto) 10-30 H Urine RBC (Auto) 5-10 H U Hyaline Cast (Auto) 10-30 H U Epithel Cells (Auto) >30 H Urine Bacteria (Auto) 1+ H Urine Test Salicylates < 3.0 L Urine Opiates Screen Ur Methadone, Qual Acetaminophen < 3 L Urine Barbiturates Ur Phencyclidine (PCP) U Amphetamin/Meth Scrn MDMA (Ecstasy) Screen U Benzodiazepines Scrn Ur Cocaine Metabolite U Marijuana (THC) Screen U Marijuana THC Carboxy Drug Screen Comment Ethyl Alcohol mg/dL < 10.0 SARS-CoV-2, RNA, NAAT 03/17/23 03/17/23 03/17/23 Unknown Unknown Unknown WBC RBC Hgb Hct MCV MCH MCHC RDW Std Deviation RDW Coeff of Yanet Plt Count MPV Immature Gran % (Auto) Neut % (Auto) Lymph % (Auto) Blanco % (Auto) Eos % (Auto) Baso % (Auto) Neut # (Auto) Lymph # (Auto) Blanco # (Auto) Eos # (Auto) Baso # (Auto) Immature Gran # (Auto) Sodium Potassium Chloride Carbon Dioxide Anion Gap BUN Creatinine Est Cr Clr Drug Dosing Est GFR ( Amer) Est GFR (Non-Af Amer) BUN/Creatinine Ratio Glucose Calcium Total Bilirubin AST ALT Alkaline Phosphatase Total Protein Albumin Globulin Albumin/Globulin Ratio TSH Urine Color Urine Appearance Urine pH Ur Specific [place] Urine Protein Urine Glucose (UA) Urine Ketones Urine Blood Urine Nitrite Urine Bilirubin Urine Urobilinogen Ur Leukocyte Esterase Urine WBC (Auto) Urine RBC (Auto) U Hyaline Cast (Auto) U Epithel Cells (Auto) Urine Bacteria (Auto) Urine Test Negative Salicylates Urine Opiates Screen Neg Ur Methadone, Qual Neg Acetaminophen Urine Barbiturates Neg Ur Phencyclidine (PCP) Neg U Amphetamin/Meth Scrn Neg MDMA (Ecstasy) Screen Neg U Benzodiazepines Scrn Neg Ur Cocaine Metabolite Neg U Marijuana (THC) Screen Pos H U Marijuana THC Carboxy Drug Screen Comment Ethyl Alcohol mg/dL SARS-CoV-2, RNA, NAAT NEGATIVE 03/17/23 Unknown WBC RBC Hgb Hct MCV MCH MCHC RDW Std Deviation RDW Coeff of Yanet Plt Count MPV Immature Gran % (Auto) Neut % (Auto) Lymph % (Auto) Blanco % (Auto) Eos % (Auto) Baso % (Auto) Neut # (Auto) Lymph # (Auto) Blanco # (Auto) Eos # (Auto) Baso # (Auto) Immature Gran # (Auto) Sodium Potassium Chloride Carbon Dioxide Anion Gap BUN Creatinine Est Cr Clr Drug Dosing Est GFR ( Amer) Est GFR (Non-Af Amer) BUN/Creatinine Ratio Glucose Calcium Total Bilirubin AST ALT Alkaline Phosphatase Total Protein Albumin Globulin Albumin/Globulin Ratio TSH Urine Color Urine Appearance Urine pH Ur Specific [place] Urine Protein Urine Glucose (UA) Urine Ketones Urine Blood Urine Nitrite Urine Bilirubin Urine Urobilinogen Ur Leukocyte Esterase Urine WBC (Auto) Urine RBC (Auto) U Hyaline Cast (Auto) U Epithel Cells (Auto) Urine Bacteria (Auto) Urine Test Salicylates Urine Opiates Screen Ur Methadone, Qual Acetaminophen Urine Barbiturates Ur Phencyclidine (PCP) U Amphetamin/Meth Scrn MDMA (Ecstasy) Screen U Benzodiazepines Scrn Ur Cocaine Metabolite U Marijuana (THC) Screen U Marijuana THC Carboxy Pending Drug Screen Comment Pending Ethyl Alcohol mg/dL SARS-CoV-2, RNA, NAAT Current Inpatient Medications Current Inpatient Medications: Current Inpatient Medications Acetaminophen (Acetaminophen 325 Mg Tab) 650 mg PO Q4H PRN PRN Reason: Headache or Minor Fever Stop: 04/17/23 00:04 Al Hydrox/Mg Hydrox/Simethicone (Aluminum/Magnesium Susp 30 Ml Udc) 30 ml PO Q4H PRN PRN Reason: GI Upset Stop: 04/17/23 00:04 Bismuth Subsalicylate (Bismuth Subsalicylate Liqd 236 Ml) 15 ml PO PRN PRN PRN Reason: Loose Stool Stop: 04/17/23 00:04 Buspirone HCl (Buspirone 7.5 Mg Tab) 7.5 mg PO BID MARY Stop: 04/17/23 08:59 Last Admin: 03/18/23 10:12 Dose: 7.5 mg Clonazepam (Clonazepam 0.5 Mg Tab) 0.5 mg PO TID PRN PRN Reason: anxiety Stop: 04/17/23 14:57 Duloxetine HCl (Duloxetine Hcl 60 Mg Cap) 60 mg PO QAM MARY Stop: 04/17/23 14:59 Hydroxyzine HCl (Hydroxyzine Hcl 25 Mg Tab) 50 mg PO HSZ PRN PRN Reason: Insomnia Stop: 04/17/23 00:04 Last Admin: 03/18/23 01:27 Dose: 50 mg Hydroxyzine HCl (Hydroxyzine Hcl 25 Mg Tab) 25 mg PO Q4H PRN PRN Reason: Anxiety Stop: 04/17/23 00:04 Magnesium Hydroxide (Magnesium Hydroxide Susp 30 Ml Udc) 30 ml PO DAILY PRN PRN Reason: Constipation Stop: 04/17/23 00:04 Miscellaneous (Order Awaiting Action - Low Ogestrel 1 Tab) 1 each N/A QS MARY Stop: 04/17/23 15:59 Nicotine Polacrilex (Nicotine Polacrilex 2 Mg Gum) 2 piece MT PRN PRN PRN Reason: Nicotine Withdrawal Stop: 04/17/23 00:04 Olanzapine (Olanzapine 5 Mg Tablet) 5 mg PO BID PRN PRN Reason: agitation/psychosis Stop: 04/17/23 08:59 Sodium Chloride (Sodium Chloride 0.65% Na Soln 45 Ml ([place])) 1 - 2 sprays NA PRN PRN PRN Reason: Nasal Dryness/Congestion Stop: 04/17/23 00:04
[2023-03-18] MEDS ORDERED: IBUPROFEN 600 MG TAB PO PRN (15:25)
[2023-03-18] MEDS: clonazePAM 0.5 MG TAB PO PRN (15:25)
[2023-03-18] MEDS: NICOTINE POLACRILEX 2 MG GUM MT PRN (15:47)
[2023-03-19] MEDS: clonazePAM 0.5 MG TAB PO PRN ×2 (04:11→12:32)
[2023-03-19] MEDS: busPIRone 7.5 MG TAB PO SCH ×2 (08:57→21:20)
[2023-03-19] MEDS: DULoxetine HCL 60 MG CAP PO SCH (08:57)
--- NOTE | 2023-03-19 09:16 | Psychiatric Progress Note ---
Date of Service March 19, 2023 Impression / Recommendations Impression 48 year old woman with a history of depression, anxiety, PTSD, body dysmorphia, cannabis-induced psychosis who was admitted on a 302 commitment for suicidal statements with plans. Diagnostically she is now minimizing any depressive symptoms or statements made prior to admission as jokes and feels that her mood has been fairly stable which makes it more difficult to feel confident in making an accurate diagnosis. However, based on her history and report of stressor of recent breakup most consistent with unspecified depression including differential of MDD exacerbation versus adjustment disorder with depression and anxiety. She is deemed in need of psychiatric hospitalization for diagnostic clarification, safety and stabilization, medication management and development of further coping skills. MNPR given history of paranoia and trauma and recent bed bugs at her home 03/19/2023: Mood appears stable, engaging in groups and continues to deny SI and feels events and statements prior to admission were blown out of proportion. She does acknowledge depression seemed to worsen slightly after she reduced her duloxetine dose a few weeks ago. She would like to increase this. Reviewed that doses above 60mg are beyond FDA approved maximum dose but that some clinical practice suggests that some individuals may benefit from higher doses up to 120mg per day. She states understanding of this and would like to increase the dose as she previously tolerated 90mg daily without side effects and perceived increased benefits for mood and nerve pain. (1) Depression with suicidal ideation: (2) Post traumatic stress disorder (PTSD): (3) Panic disorder [episodic paroxysmal anxiety]: Plan 03/19/2023: Increase duloxetine tp 90mg daily. Decrease Klonopin to 0.5mg BID. Continue Buspar 7.5mg BID. 03/18/2023: The patient was admitted to the [facility] ([facility]) on q15 min checks (behavioral with suicide precautions) for safety. The patient will participate in group, recreational, and milieu therapies and will be offered additional individual and family sessions as clinically appropriate. -Continue prior to admission duloxetine 60mg daily, buspar 7.5mg BID -For now will continue Klonopin 0.5mg TID but will change to prn in effort to begin taper to at least 0.5mg BID Inventory Assets Strengths: supportive relationships, willing to get treatment Needs: safety and stabilization, medication adjustment, additional coping skills, increased outpatient services Suicide Risk Level Suicide Risk Level: Moderate (q15 min suicide checks) (depression with SI with plan prior to admission but denying SI, feels safe in the hospital, able to safety contract and agrees to let nursing/staff know should they develop plan, intent or feel unable to remain safe. ) Risk Factors Assessment Male: No : Yes Do You Have Access To A Gun?: No Health Problems: Yes (chronic nerve pain) Substance Use Disorders: Yes (recreationally substance use) Previous Attempt: Yes Family History of Suicide: No Previous Psychiatric Hospitalization: Yes Protective Factors Assessment Employed: No ([employer] disability) Stable Relationships: No Interval History Identifying Information ROOSEVELT VARGAS is a 48-year-old woman who currently lives in [place], has a history of depression, anxiety, PTSD, body dysmorphia and cannabis-induced psychotic disorder, and was admitted on 03/18/23 00:05 on a 302 involuntary com mitment for suicidal statements with plan. Chief Complaint "I feel pretty good". Review of Systems Sleep Information Total Hours of Sleep: 6.5 Sleep Comments: Awoke with a nightmare and received Klonopin for anxiety Meal Information Percent Meal Consumed - Breakfast: 100 Percent Meal Consumed - Lunch: 100 Percent Meal Consumed - Dinner: 100 Subjective Subjective Patient was seen & assessed and interval progress reviewed with treatment team nursing and social work. Up in the middle of the night reporting a nightmare and requested a prn Klonopin. Today engaging with groups until the afternoon when she requested some time to relax in her room. Seen this afternoon she notes that she is resting but "not because I'm depressed or don't feel well". Rather notes her mood is "pretty good" today. Reviewed that she feels like she may have gotten more depressed after her Cymbalta was reduced from 90mg qd to 60mg qd and would be interested in increasing the dose again. She denies SI. Discussed my concerns about Klonopin and goal of reducing dose to BID prn. Physical Exam Psychiatric Orientation: alert and oriented x 3 Apperance: appropriately dressed and appropriately groomed Eye Contact: good eye contact Motor Behavior: no abnormal motor movements Speech: normal rate/rhythm/volume of speech Affect: euthymic affect Mood: + depressed mood Thought Process: goal directed thought process Thought Content: reality based without delusions Suicidal Thoughts: denies suicidal thoughts (but made statements prior to admission), denies suicidal plan and denies suicidal intent Homicidal Thoughts: denies homicidal thoughts Hallucinations: no auditory hallucinations and no visual hallucinations Cognition: recent memory grossly intact, remote memory grossly intact, attention grossly intact and language grossly intact Estimated Intelligence: consistent with education level Insight: + limited insight Judgment: + limited judgement Vital Signs (Past 24 Hours) Last Vital Signs Temp 37.2 C 03/19/23 06:44 Pulse 76 03/19/23 06:46 Resp 16 03/19/23 06:44 BP 120/87 03/19/23 06:46 Pulse Ox 98 03/17/23 20:56 O2 Del Method Room Air 03/17/23 20:56 Results & Data ([facility]) Current Inpatient Medications Current Inpatient Medications: Current Inpatient Medications Acetaminophen (Acetaminophen 325 Mg Tab) 650 mg PO Q4H PRN PRN Reason: Headache or Minor Fever Stop: 04/17/23 00:04 Al Hydrox/Mg Hydrox/Simethicone (Aluminum/Magnesium Susp 30 Ml Udc) 30 ml PO Q4H PRN PRN Reason: GI Upset Stop: 04/17/23 00:04 Bismuth Subsalicylate (Bismuth Subsalicylate Liqd 236 Ml) 15 ml PO PRN PRN PRN Reason: Loose Stool Stop: 04/17/23 00:04 Buspirone HCl (Buspirone 7.5 Mg Tab) 7.5 mg PO BID MARY Stop: 04/17/23 08:59 Last Admin: 03/19/23 08:57 Dose: 7.5 mg Clonazepam (Clonazepam 0.5 Mg Tab) 0.5 mg PO TID PRN PRN Reason: anxiety Stop: 04/17/23 14:57 Last Admin: 03/19/23 04:11 Dose: 0.5 mg Duloxetine HCl (Duloxetine Hcl 60 Mg Cap) 60 mg PO QAM MARY Stop: 04/17/23 14:59 Last Admin: 03/19/23 08:57 Dose: 60 mg Hydroxyzine HCl (Hydroxyzine Hcl 25 Mg Tab) 50 mg PO HSZ PRN PRN Reason: Insomnia Stop: 04/17/23 00:04 Last Admin: 03/18/23 01:27 Dose: 50 mg Hydroxyzine HCl (Hydroxyzine Hcl 25 Mg Tab) 25 mg PO Q4H PRN PRN Reason: Anxiety Stop: 04/17/23 00:04 Ibuprofen (Ibuprofen 600 Mg Tab) 600 mg PO Q8H PRN PRN Reason: Pain Stop: 04/17/23 15:24 Last Admin: 03/18/23 15:46 Dose: 600 mg Magnesium Hydroxide (Magnesium Hydroxide Susp 30 Ml Udc) 30 ml PO DAILY PRN PRN Reason: Constipation Stop: 04/17/23 00:04 Miscellaneous (Order Awaiting Action - Low Ogestrel 1 Tab) 1 each N/A QS MARY Stop: 04/17/23 15:59 Last Admin: 03/18/23 16:11 Dose: Not Given Nicotine Polacrilex (Nicotine Polacrilex 2 Mg Gum) 2 piece MT PRN PRN PRN Reason: Nicotine Withdrawal Stop: 04/17/23 00:04 Last Admin: 03/18/23 15:47 Dose: 2 piece Olanzapine (Olanzapine 5 Mg Tablet) 5 mg PO BID PRN PRN Reason: agitation/psychosis Stop: 04/17/23 08:59 Sodium Chloride (Sodium Chloride 0.65% Na Soln 45 Ml ([place])) 1 - 2 sprays NA PRN PRN PRN Reason: Nasal Dryness/Congestion Stop: 04/17/23 00:04 Mental Health & Subst Abuse Tx Psychiatrist Name of Psychiatrist: Otoniel Cronin Psychiatrist's Date Of Appointment With Psychiatric Provider: 03/25/23 Time of Appointment with Psychiatrist: 9:45 AM Psychiatric Appointment Comment: [address], [place], [place] [id number] Therapist Name of Therapist: Kyle Andres Therapist's Therapy Appointment Comment: Please resume your normal schedule. Dialysis Chief Equipment Technician Name of Dialysis Chief Equipment Technician: [facility] Phone Number for Dialysis Chief Equipment Technician: [phone] Case Management Appointment Comment: Please resume your normal schedule. Post Discharge Appointments Primary Care Physician Name Of Family Doctor/PCP: [facility] Date of Future Appointment with PCP: 03/24/23 Time of Appointment with PCP: 8:45 AM Provider Appointment Comment: [id number], [place] [id number] Contact Information Discharge Discharge Address: [address] , [address], [place] [id number]
[2023-03-19] MEDS: CONTRACEPTIVE PO SCH (11:01)
[2023-03-19] MEDS: LOW OGESTREL PO SCH (11:01)
[2023-03-19] MEDS ORDERED: ALBUTEROL HFA 8 GM INHALER INH PRN (11:49)
[2023-03-19] MEDS ORDERED: DULoxetine HCL 30 MG CAP PO ONE (14:24)
[2023-03-20] MEDS: clonazePAM 0.5 MG TAB PO PRN ×2 (02:48→12:22)
[2023-03-20] MEDS: busPIRone 7.5 MG TAB PO SCH (08:47)
[2023-03-20] MEDS: LOW OGESTREL PO SCH (08:51)
[2023-03-20] MEDS: CONTRACEPTIVE PO SCH (08:51)
[2023-03-20] MEDS ORDERED: DULoxetine HCL 30 MG CAP PO SCH (09:00)
[2023-03-20 10:17] LABS: Marijuana Quant, GCMS Urine 90 ng/mL (<5)
[2023-03-20] MEDS: NICOTINE POLACRILEX 2 MG GUM MT PRN (12:54)
--- NOTE | 2023-03-20 13:08 | Discharge Summary ---
Date of Service March 20, 2023 History of Present Illness Rakesh was brought to the hospital by police on a 302 warrant after making statements of suicide to her leather case finisher. She feels like this is a misunderstanding and she states she would never act on these thoughts of suicide. She recalls discussing her recent breakup with her CM and "joked" that her friends would be going to a shooting range later that day and she could go and just throw herself in front of them. However, now she states this was always meant to be a joke and she would never do this nor would she ever traumatize her friends in this way. Collateral from 302 petition completed by her CM states: "I saw Rakesh Haider today, March 17 2023, for a regularly scheduled appointment. Rakesh reported feeling depressed and wanting to . She said that she was praying to God to kill her. She asked during the appointment if I could pray to God as well to ask Him to kill her. Rakesh was also discussing what her friends' and family's reactions would be if she were to like that. Before I left her apartment, Rakesh mentioned that she was going to the shooting range. I told her as I was leaving that I hope she had a good time and she began musing to herself that maybe she should "accidentally" shoot herself in the head or that she should "accidentally" run in front of other people while they were shooting. She mused that no one would know if it wasn't an accident." Lately she's been feeling better after starting buspar a week ago and Cymbalta helps with nerve pain and her mood. She feels like her current medications are working well. She endorses some depression related to seeing someone recently and the grief from their breakup. She reports she is trying to stay hopeful but the breakup brought some worries of always being alone or never being able to find someone to spend her life with. She continues to have anxiety but has been trying to exercise and practice mindfulness which she finds helpful. She feels Klonopin helps her sleep and her pain. Her appetite has been stable. Describes her frustration that she was diagnosed with psychosis during her previous admission as she states the events with her ex-boyfriend regarding his participation with child pornography were legitimate and that she spoke with [place] police and the FBI previously. Physical Exam Vital Signs (Past 24 Hours) Last Vital Signs Temp 37.5 C 03/20/23 06:47 Pulse 81 03/20/23 06:47 Resp 16 03/20/23 06:47 BP 113/66 03/20/23 06:47 Pulse Ox 98 03/17/23 20:56 O2 Del Method Room Air 03/17/23 20:56 See admission H&P and DOD summary. Principal Diagnosis Major Depressive Disorder Psychiatric Data See daily stay summary. In short, patient was engaged with the social/therapeutic milieu of the unit, safety was maintained and the patient was cooperative with care. Medication changes included increased duloxetine from 60mg to 90mg daily for depression and pain and recommendation to reduce clonazepam to 0.5mg BID prn for panic attacks with ongoing long-term goal of taper to discontinuation (or just to having 3-5 tabs per month) and they tolerated this well. A support session was held and safety plan was completed prior to discharge. Reviewed importance of seeking emergency care should SI intensify, worsen or should they feel unsafe in the future which they agree to do. On the day of discharge she stated her mood was "[]" and remained future-oriented including seeing her parents, seeing her cars, relaxing and engaging in aftercare appointments for psychiatry, primary care provider, therapy/peer support and crisis document improvement specialist. Day of Discharge Assessment Today the patient voices readiness for discharge. They note improvement in mood and anxiety. They deny thoughts of harm to self or others. Thoughts remain organized and they are clinically improved from admission. There is no evidence of psychosis. They improved in the hospital with support and medication adjustments. They agree to take medications as prescribed and keep follow-up appointments. At the time of the discharge they are deemed to be stable and appropriate for outpatient level of care. They are not deemed to be at imminent risk of harm to self or others. They are aware of emergency and crisis services. Knows to call 911 or go to nearest emergency care center if in a crisis which cannot be handled as an outpatient. Transition of Care Transition Of Care Record: was reviewed with the patient Advance Directives Advance Directives Information Provided: Yes Advance Directives: No Mental Health Advance Directive: No Advance Directives on File: No Living Will: No Power of Farmworker Poultry: No Advance Directives Reason:: Declines as Mental Health Visit. Suicide Risk Level Suicide Risk Level Comments: Acute risk is low given improvement in mood and denial of SI, lack of access to lethal means, hopefulness. Chronic risk is moderate given some non-modifiable risk factors: psychiatric co-morbid diagnoses, periods of impulsivity, prior attempt, chronic pain, prior psychiatric hospitalizations but also with protective factors including: good social support, sense of responsibility to family and social supports, outpatient care in place, positive coping skills, positive problem solving, willingness to engage with treatment and capacity for self-observation. Counseled on ways to reduce acute and chronic risk including engaging with outpatient providers, using safety plan if needed, utilizing supports, taking medication, and using coping skills. Modifiable risk factors of SI and depression were addressed during hospitalization through development of new coping skills, family meeting, safety planning, and medication adjustments. Risk Factors Assessment Male: No : Yes Do You Have Access To A Gun?: No Health Problems: Yes (chronic nerve pain) Mental Health Diagnoses: Yes Substance Use Disorders: Yes (recreationally substance use) Previous Attempt: Yes Family History of Suicide: No Previous Psychiatric Hospitalization: Yes Hopelessness: No Protective Factors Assessment Employed: No ([employer] disability) Stable Relationships: No Supportive Family: Yes Good Rapport with Provider: Yes Tobacco Cessation at Discharge Tobacco Cessation Medication Prescribed at Discharge: Offered & Pt Refused (though she has signed up for quitline and plans to use this) Discharge Data Lab Results 03/17/23 03/17/23 03/17/23 20:50 20:50 20:50 WBC 11.03 H RBC 4.71 Hgb 15.6 Hct 44.3 MCV 94.1 MCH 33.1 MCHC 35.2 RDW Std Deviation 46.1 RDW Coeff of Yanet 13.3 Plt Count 268 MPV 10.4 Immature Gran % (Auto) 0.2 Neut % (Auto) 46.0 Lymph % (Auto) 35.1 Piatt % (Auto) 6.7 Eos % (Auto) 11.3 Baso % (Auto) 0.7 Neut # (Auto) 5.07 Lymph # (Auto) 3.87 H Piatt # (Auto) 0.74 H Eos # (Auto) 1.25 H Baso # (Auto) 0.08 Immature Gran # (Auto) 0.02 Sodium 134 L Potassium 3.6 Chloride 104 Carbon Dioxide 22 Anion Gap 8 BUN 14 Creatinine 0.77 Est Cr Clr Drug Dosing Not Reportable Est GFR ( Amer) 107.3 Est GFR (Non-Af Amer) 92.6 BUN/Creatinine Ratio 18.2 Glucose 89 Calcium 9.6 Total Bilirubin 0.6 AST 20 ALT 19 Alkaline Phosphatase 56 Total Protein 7.5 Albumin 4.6 Globulin 2.9 Albumin/Globulin Ratio 1.6 TSH 1.608 Urine Color Urine Appearance Urine pH Ur Specific [place] Urine Protein Urine Glucose (UA) Urine Ketones Urine Blood Urine Nitrite Urine Bilirubin Urine Urobilinogen Ur Leukocyte Esterase Urine WBC (Auto) Urine RBC (Auto) U Hyaline Cast (Auto) U Epithel Cells (Auto) Urine Bacteria (Auto) Urine Test Salicylates Urine Opiates Screen Ur Methadone, Qual Acetaminophen Urine Barbiturates Ur Phencyclidine (PCP) U Amphetamin/Meth Scrn MDMA (Ecstasy) Screen U Benzodiazepines Scrn Ur Cocaine Metabolite U Marijuana (THC) Screen U Marijuana THC Carboxy Drug Screen Comment Ethyl Alcohol mg/dL SARS-CoV-2, RNA, NAAT 03/17/23 03/17/23 03/17/23 20:50 20:50 Unknown WBC RBC Hgb Hct MCV MCH MCHC RDW Std Deviation RDW Coeff of Yanet Plt Count MPV Immature Gran % (Auto) Neut % (Auto) Lymph % (Auto) Piatt % (Auto) Eos % (Auto) Baso % (Auto) Neut # (Auto) Lymph # (Auto) Piatt # (Auto) Eos # (Auto) Baso # (Auto) Immature Gran # (Auto) Sodium Potassium Chloride Carbon Dioxide Anion Gap BUN Creatinine Est Cr Clr Drug Dosing Est GFR ( Amer) Est GFR (Non-Af Amer) BUN/Creatinine Ratio Glucose Calcium Total Bilirubin AST ALT Alkaline Phosphatase Total Protein Albumin Globulin Albumin/Globulin Ratio TSH Urine Color Yellow Urine Appearance Cloudy A Urine pH 6.0 Ur Specific [place] 1.015 Urine Protein Negative Urine Glucose (UA) Negative Urine Ketones Trace H Urine Blood 1+ H Urine Nitrite Negative Urine Bilirubin Negative Urine Urobilinogen Negative Ur Leukocyte Esterase Trace H Urine WBC (Auto) 10-30 H Urine RBC (Auto) 5-10 H U Hyaline Cast (Auto) 10-30 H U Epithel Cells (Auto) >30 H Urine Bacteria (Auto) 1+ H Urine Test Salicylates < 3.0 L Urine Opiates Screen Ur Methadone, Qual Acetaminophen < 3 L Urine Barbiturates Ur Phencyclidine (PCP) U Amphetamin/Meth Scrn MDMA (Ecstasy) Screen U Benzodiazepines Scrn Ur Cocaine Metabolite U Marijuana (THC) Screen U Marijuana THC Carboxy Drug Screen Comment Ethyl Alcohol mg/dL < 10.0 SARS-CoV-2, RNA, NAAT 03/17/23 03/17/23 03/17/23 Unknown Unknown Unknown WBC RBC Hgb Hct MCV MCH MCHC RDW Std Deviation RDW Coeff of Yanet Plt Count MPV Immature Gran % (Auto) Neut % (Auto) Lymph % (Auto) Piatt % (Auto) Eos % (Auto) Baso % (Auto) Neut # (Auto) Lymph # (Auto) Piatt # (Auto) Eos # (Auto) Baso # (Auto) Immature Gran # (Auto) Sodium Potassium Chloride Carbon Dioxide Anion Gap BUN Creatinine Est Cr Clr Drug Dosing Est GFR ( Amer) Est GFR (Non-Af Amer) BUN/Creatinine Ratio Glucose Calcium Total Bilirubin AST ALT Alkaline Phosphatase Total Protein Albumin Globulin Albumin/Globulin Ratio TSH Urine Color Urine Appearance Urine pH Ur Specific [place] Urine Protein Urine Glucose (UA) Urine Ketones Urine Blood Urine Nitrite Urine Bilirubin Urine Urobilinogen Ur Leukocyte Esterase Urine WBC (Auto) Urine RBC (Auto) U Hyaline Cast (Auto) U Epithel Cells (Auto) Urine Bacteria (Auto) Urine Test Negative Salicylates Urine Opiates Screen Neg Ur Methadone, Qual Neg Acetaminophen Urine Barbiturates Neg Ur Phencyclidine (PCP) Neg U Amphetamin/Meth Scrn Neg MDMA (Ecstasy) Screen Neg U Benzodiazepines Scrn Neg Ur Cocaine Metabolite Neg U Marijuana (THC) Screen Pos H U Marijuana THC Carboxy Drug Screen Comment Ethyl Alcohol mg/dL SARS-CoV-2, RNA, NAAT NEGATIVE 03/17/23 Unknown WBC RBC Hgb Hct MCV MCH MCHC RDW Std Deviation RDW Coeff of Yanet Plt Count MPV Immature Gran % (Auto) Neut % (Auto) Lymph % (Auto) Piatt % (Auto) Eos % (Auto) Baso % (Auto) Neut # (Auto) Lymph # (Auto) Piatt # (Auto) Eos # (Auto) Baso # (Auto) Immature Gran # (Auto) Sodium Potassium Chloride Carbon Dioxide Anion Gap BUN Creatinine Est Cr Clr Drug Dosing Est GFR ( Amer) Est GFR (Non-Af Amer) BUN/Creatinine Ratio Glucose Calcium Total Bilirubin AST ALT Alkaline Phosphatase Total Protein Albumin Globulin Albumin/Globulin Ratio TSH Urine Color Urine Appearance Urine pH Ur Specific [place] Urine Protein Urine Glucose (UA) Urine Ketones Urine Blood Urine Nitrite Urine Bilirubin Urine Urobilinogen Ur Leukocyte Esterase Urine WBC (Auto) Urine RBC (Auto) U Hyaline Cast (Auto) U Epithel Cells (Auto) Urine Bacteria (Auto) Urine Test Salicylates Urine Opiates Screen Ur Methadone, Qual Acetaminophen Urine Barbiturates Ur Phencyclidine (PCP) U Amphetamin/Meth Scrn MDMA (Ecstasy) Screen U Benzodiazepines Scrn Ur Cocaine Metabolite U Marijuana (THC) Screen U Marijuana THC Carboxy 90 H Drug Screen Comment SEE NOTE Ethyl Alcohol mg/dL SARS-CoV-2, RNA, NAAT Hospital Course (1) Major depressive disorder with current active episode: (2) Depression with suicidal ideation: (3) Post traumatic stress disorder (PTSD): (4) Panic disorder [episodic paroxysmal anxiety]: Plan 03/19/2023: Increase duloxetine to 90mg daily. Decrease Klonopin to 0.5mg BID prn. Continue Buspar 7.5mg BID. 03/18/2023: The patient was admitted to the [facility] ([facility] mental [facility]) on q15 min checks (behavioral with suicide precautions) for safety. The patient will participate in group, recreational, and milieu therapies and will be offered additional individual and family sessions as clinically appropriate. -Continue prior to admission duloxetine 60mg daily, buspar 7.5mg BID -For now will continue Klonopin 0.5mg TID but will change to prn in effort to begin taper to at least 0.5mg BID Mental Health & Subst Abuse Tx Psychiatrist Name of Psychiatrist: Otoniel Cronin Psychiatrist's Date Of Appointment With Psychiatric Provider: 03/25/23 Time of Appointment with Psychiatrist: 9:45 AM Psychiatric Appointment Comment: [address], [place] [address] Therapist Name of Therapist: Kyle Andres Therapist's Therapy Appointment Comment: Please resume your normal schedule. [employer] Supervisor Name of [employer] Supervisor: [facility] Kinsey Henao Phone Number for [employer] Supervisor: [phone] Case Management Appointment Comment: Please resume your normal schedule. Post Discharge Appointments Primary Care Physician Name Of Family Doctor/PCP: PS - SANDY Galloway [facility] Date of Future Appointment with PCP: 03/24/23 Time of Appointment with PCP: 8:45 AM Provider Appointment Comment: [address], [place] [address] Smoking Cessation Counseling Tobacco Cessation Medication Prescribed at Discharge: Offered & Pt Refused (though she has signed up for quitline and plans to use this) Contact Information Discharge Discharge Address: [address] [place] [address], [facility] [address], [place] [address] Discharge Plan Discharge Items Patient Disposition: Home - Self-Care Reason For Visit: SUICIDAL Discharge Diagnosis: Major Depressive Disorder Activity: Resume your previous activity Non-emergency contact: Primary Care Provider, Psychiatrist, Therapist and Signal Mechanic Call non-emergency contact if: you have any medication questions and your symptoms worsen Follow-up/Referrals: Margaux Clements CRNP [Primary Care Provider] - Diet: Regular Addtl Attending Provider Instructions: Optional mobile apps we discussed: -Suicide safety plan -Virtual Hope Box -Panic foreign car mechanic SPECIAL CARE INSTRUCTIONS: 1. Follow through with your scheduled aftercare appointments. If unable to keep an appointment, please call to reschedule. 2. Take your medication only as prescribed. Medication should not be changed or stopped without the approval of your doctor. In the event of worsening symptoms or concerns about side effects, contact your doctor immediately. 3. Utilize new healthy coping skills, anger management skills, and stress management skills learned during your hospitalization. Journal feelings and process them with a support person. Identify stressors or situations that may result in relapse, deterioration or inappropriate behaviors and develop a plan to deal with those issues. 4. If your coping skills are ineffective and you are in crisis, contact your outpatient providers for direction. If unable to reach your providers, please call the [facility] CRISIS LINE AT , go to the [facility] walk-in center at [address], [place], or go to the closest Emergency Room. 5. Avoid alcohol and un-prescribed drugs. 6. You have been provided with the Mental Health Advance Directives Pamphlet for your review. 7. Your condition is stable for discharge to outpatient level of care, but recovery is an ongoing process. Ifthoughts to harm yourself or others return, follow the safety plan developed during your stay. Planning for a safe return home includes securing weapons. Our treatment team recommends weaponsbe removed from the home until your outpatient provider reassesses your progress. In rare cases where the items themselvescannot be removed, guns and ammunitionshould be secured separatelyand keys stored by a reliable personoutside of the home. If you were admitted on an involuntary commitment, the police or other legal authorities may be involved in this process. AFTERCARE APPOINTMENTS: * Please call your insurance company prior to your scheduled appointment to confirm your aftercare providers are covered. Take your insurance information to your appointments. WHO TO CALL AND WHEN: Medical Emergencies: For questions or emergencies related to your hospital stay, please contact the Inpatient Behavioral Health Unit at [phone]. A health clinician is on-call 27/04 for the Behavioral Health Unit for emergencies At any time you feel your situation is an emergency, you may also call 911 immediately. Pending Studies at Discharge: No Stand-Alone Forms: My [facility] Medications and DC Order Prescriptions: New duloxetine 30 mg Capsule,Delayed Release(Dr/Ec) 30 mg PO QAM 30 Days Qty: 30 0RF Rx Instructions: To be combined with 60mg capsule for total daily dose of 90mg Continued albuterol sulfate [Ventolin HFA] 90 mcg/actuation Hfa Aerosol Inhaler 2 puff INHALATION Q6H PRN (Reason: Shortness Of Breath Or Wheezing) Patient Comments: Patient ran out of script, meaning to get refilled Low-Ogestrel (28) 0.3-30 mg-mcg Tablet 1 tab PO DAILY buspirone 7.5 mg tablet 7.5 mg PO BID 30 Days Qty: 60 0RF duloxetine [Cymbalta] 60 mg capsule,delayed release(DR/EC) 60 mg PO DAILY 30 Days Qty: 30 0RF Rx Instructions: To be combined with 30mg tab for total daily dose of 90mg Changed clonazepam [Klonopin] 0.5 mg tablet 0.5 mg PO BID PRN (Reason: Anxiety) Qty: 1 0RF Discharge Orders: Discharge Order (Routine); Ordered 03/20/23 Ordered By: Sasha Siegel Admission Data Admit Date/Time: 03/18/23 00:05 Attending Provider: Sasha Siegel Admit Provider: Sasha Siegel Primary Care Provider: Margaux Clements Other Interventions: Discharge Summary Assessment (RN) Last Done: 03/20/23 13:31 PSY Interdisciplinary Discharge Planning Last Done: 03/20/23 13:31 Coding Level of Care Code 03708 D/C day mgmt > 30 min Diagnoses Major depressive disorder with current active episode F32.9 Depression with suicidal ideation F32.A; R45.851 Post traumatic stress disorder (PTSD) F43.10 Panic disorder [episodic paroxysmal anxiety] F41.0 Time Spent (min) 40
== END 2023-03-20 14:10 | disposition home or self-care (01) | DRG 885 ==
LOC: ED 20:16 → 3S 03-18 00:05

== ENCOUNTER 2024-06-06 20:07 | Inpatient (IN) ==
--- OUTSIDE RECORDS SUMMARY | 2024-06-06 20:10 | External Medical Summary | Summary of Care ---
Author Name Unknown Organization [facility] Address [address] [place] [address] Phone [phone] Care Team Providers Care Superintendent Schools Name Role Phone Yannick Whitfield MD Primary Care Provider Reason for Visit * Reason Onset Date Comments Appointment 04/06/2024 Encounter Details Date Type Department Care Team ([facility] st Contact Info) Description 04/06/2024 Telephone Gynecology/Obstetrics [facility] [address] [place] [address] Services, Scheduling [address] [place] [address] Appointment Allergies Active Allergy Reactions Criticality Noted Date Comments Rabbit-Derived Products Other (Please comment) 12/06/2018 Rabbit fur Tetanus Toxoids Fever Medium 12/10/2018 documented as of this encounter (statuses as of 04/11/2024) Medications Medication Sig Dispensed Refills Start Date End Date Status ALBUTEROL SULFATE HFA 108 (90 BASE) MCG/ACT IN AERS as needed in am Acti ve Golden-3 Fatty Acids (FISH OIL) 1000 MG Capsule Take 1,000 mg by mouth daily. Active Low-Ogestrel 0.3-30 MG-MCG Oral Tablet TAKE 1 TABLET BY MOUTH DAILY CONTINUESOULY 01/26/2022 Active Ventolin HFA 108 (90 Base) MCG/ACT Inhalation Aerosol SolutionIndication s:Suspected COVID-19 virus infection Inhale by mouth 2 Puffs every 4 hours as needed for Cough or Wheezing. 18 g 01/31/2022 Active ALPRAZolam 1 MG Oral Tablet (xaNAX)Indications :KJ (generalized anxiety disorder) Take 0.5 Tablets (0.5 mg) by mouth 4 times a day as needed for Anxiety. 30 Tablet 08/26/2022 Active Continuation of patient use of medical marijuana is approved Active Melatonin 3 MG Oral Tablet Take 1 Tablet (3 mg) by mouth. Active documented as of this encounter (statuses as of 04/11/2024) Active Problems Problem Noted Date Diagnosed Date Recurrent major depressive disorder 12/10/2018 documented as of this encounter (statuses as of 04/11/2024) Social History Tobacco Use Types Packs/Day Years Used Date Smoking Tobacco: Every Day Smokeless Tobacco: Never Alcohol Use Standard Drinks/Week Comments No 0 (1 standard drink = 0.6 oz pur e alcohol) currently denies AUDIT-C Answer Date Recorded Frequency of Alcohol Consumption Never 12/06/2018 Average Number of Drinks Not on file 019 Frequency of Binge Drinking Not on file 01/2019 Utilities Answer Date Recorded Do you have trouble paying y our heating, water, or electric bill? (Adult - for ages 18 years and over) Not on file 03/22/2024 Is your family able to pay t he heat, water, or electric bill? (Household - for ages 0-17 years) Not on file 03/22/2024 Does your family have access to good internet? (Household - for ages 0-17 years) Not on file 03/22/2024 Social Connections Answer Date Recorded How often do you feel lonely or isolated from those around you? (Adult - for ages 18 years and over) Not on file 03/22/2024 Sex and Gender Information Value Date Recorded Sex Assigned at Not on file Gender Identity Not on file Sexual Orientation Not on file Job Start Date Occupation Industry Not on file Not on file Not on file documented as of this encounter Miscellaneous Notes * Telephone Encounter - Lizeth Roblero RN - 04/11/2024 3:38 PM EDT Pt has stopped her ocps and wants to talk about getting . She is aware that we use a fertility specialist for this. She would like to do this. But then after offering to schedule her for this, she decided she may want to go back on the pills. She declined appt and will see if she could already be since she has been trying for the past 3 weeks. Encouraged pt to let us know if we co uld help . * Telephone Encounter - Lizeth Roblero RN - 04/11/2024 9:49 AM EDT left message for patient to call office * Telephone Encounter - Loree Armstrong OSA - 04/06/2024 4:07 PM EDT Pt called in to schedule apt with Gigi. Pt states he has been with her for awhile and knows her history with wanting to get at this time. Pt states she stopped taking BC per and has questions for her provider. Pt is aware the clinic will contact her for his scheduling needs. Please contact patient at [phone] to assist. Thank you, Loree Armstrong [employer] Women's Health Scheduling documented in this encounter Plan of Treatment Health Maintenance Due Date Last Done Comments Lipid Panel 1977 Pneumococcal Vaccine: Pediat rics (0 to 5 Years) and At-Risk Patients (6 to 64 Years) (1 of 2 - PCV) 1983 Depression Monitoring 1989 HIV Screening 01/10/1992 Hepatitis C Screening 1995 Hepatitis B Vaccine (1 of 3 - 19+ 3-dose series) 01/10/1996 Pap Smear 1998 Cervical Cancer Screening 2007 HPV/Co-Test 2007 Mammogram 06/02/2020 06/02/2019 Cologuard 2022 Colonoscopy 2022 Colorectal Cancer Screening 2022 Fecal Occult Blood Test 2022 Sigmoidoscopy 2022 COVID-19 Vaccine ( - 2022-2 4 season) 2023 Influenza Vaccine (FLU shot) (#1) 2024 019 HPV (Gardasil) Vaccine Aged Out No lo nger eligible based on patient's age to complete this topic MENINGOCOCCAL (MENACTRA/MENVEO) Aged Out No longer eligible based on patient's age to complete this topic documented as of this encounter Medical Devices Not on filedocumented as of this encounter Advance Directives * Full Code (Latest Code Status on File) Date Activated Date Inactivated Comments 12/27/2018 1:08 PM 12/31/2018 8:47 PM This order r eflects the patients wishes and were consensually agreed upon. * Full Code Date Activated Date Inactivated Comments 12/06/2018 7:06 PM 12/10/2018 7:49 PM This order ref lects the patients wishes and were consensually agreed upon. Care Teams Superintendent Schools Relationship Specialty Start Date End Date Yannick Whitfield MD [address] [facility] [address] [address] PCP - General Family Medicine 11/09/18 documented as of this encounter
[2024-06-06 21:08] LABS: Albumin Level 4.5 gm/dl (3.4-5.0); Bilirubin,Total 0.3 mg/dl (0.2-1.0); Calcium 9.8 mg/dl (8.6-10.3); Potassium 3.7 mmol/L (3.5-5.1)
[2024-06-06 21:14] LABS: Albumin Globulin Ratio 1.7 (0.9-2); BUN Creatinine Ratio 20.9 (10-20); Creatinine Clr Calc Pharmacy 108.5 ml/min; Est GFR (African American) 121.3 ml/min; Est GFR (Non-African American) 104.7 ml/min; Globulin 2.7 gm/dl (2.5-4.0); Total Protein 7.2 gm/dl (6.0-8.3)
[2024-06-06 21:24] LABS: Acetaminophen < 3 ug/ml (10-30); Salicylate < 3.0 mg/dl (3.0-30)
[2024-06-06 21:28] LABS: Thyroid Stimulating Hormone 3.798 uIu/ml (0.300-4.500)
[2024-06-06 21:35] LABS: Basophils # (auto) 0.06 K/uL (0.00-0.20); Basophils % (auto) 0.6 %; Eosinophils # (auto) 0.44 K/uL (0.00-0.50); Eosinophils % (auto) 4.8 %; Hematocrit (blood only) 39.1 % (37.0-47.0); Hemoglobin 13.6 g/dl (12.0-16.0); Immature Granulocytes # (auto) 0.03 K/uL (0.01-0.20); Immature Granulocytes % (auto) 0.3 %; Lymphocytes # (auto) 3.77 K/uL (1.20-3.40); Lymphocytes % (auto) 40.7 %; Mean Corpuscular Hemoglobin 33.3 pg (25.0-34.0); Mean Corpuscular Hgb Conc 34.8 g/dL (32.0-36.0); Mean Corpuscular Volume 95.8 fL (80.0-100.0); Mean Platelet Volume 11.5 fL (9.4-12.4); Monocytes # (auto) 0.77 K/uL (0.11-0.59); Monocytes % (auto) 8.3 %; Neutrophils # (auto) 4.19 K/uL (1.40-6.50); Neutrophils % (auto) 45.3 %; Platelet Count 286 K/uL (130-400); RDW Coefficient of Variation 14.7 % (11.5-14.5); RDW Standard Deviation 51.8 fL (36.4-46.3); Red Blood Count 4.08 M/uL (4.20-5.40); White Blood Count 9.26 K/ul (4.8-10.8)
[2024-06-06 21:39] LABS: Appearance Urine Clear (Clear); Bilirubin Urine Negative (Negative); Blood Urine Negative (Negative); Color Urine Yellow; Glucose Urine UA Negative (Negative); Ketones Urine Negative (Negative); Leukocyte Esterase Urine Negative (Negative); Nitrite Urine Negative (Negative); Protein Urine Negative (Negative); Specific Gravity Urine 1.004 (1.000-1.030); Urobilinogen Urine Negative (Negative); pH Urine 7.5 (4.5-7.5)
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
[2024-06-06 22:05] LABS: Pregnancy Test, Urine Negative (Negative)
[2024-06-06 22:16] LABS: Amphetamines+Metham, Urine Neg (Neg); Barbiturates, Urine Neg (Neg); Benzodiazepine, Urine Pos (Neg); Cocaine, Urine Neg (Neg); Fentanyl, Urine Neg (Neg); MDMA (Ecstacy), Urine Neg (Neg); Marijuana, Urine Pos (Neg); Methadone, Urine Neg (Neg); Opiate, Urine Neg (Neg); Phencyclidine, Urine Neg (Neg)
[2024-06-07] MEDS ORDERED: MAGNESIUM HYDROXIDE SUSP 30 ML UDC PO PRN (00:40)
[2024-06-07] MEDS ORDERED: SODIUM CHLORIDE 0.65% NA SOLN 45 ML (OCEAN) PRN (00:40)
[2024-06-07] MEDS ORDERED: ALUMINUM/MAGNESIUM SUSP 30 ML UDC PO PRN (00:40)
[2024-06-07] MEDS ORDERED: ACETAMINOPHEN 325 MG TAB PO PRN (00:40)
[2024-06-07] MEDS ORDERED: hydrOXYzine HCl 25 MG TAB PO PRN ×2 (00:40)
[2024-06-07] MEDS ORDERED: BISMUTH SUBSALICYLATE LIQD 236 ML PO PRN (00:40)
[2024-06-07] MEDS ORDERED: ALBUTEROL HFA 8 GM INHALER INH PRN (00:53)
[2024-06-07] MEDS: ALPRAZolam 0.5 MG TABLET PO STA (01:01)
[2024-06-07] MEDS: OLANZapine 5 MG TABLET PO STA (01:01)
[2024-06-07] MEDS: ALPRAZolam 0.5 MG TABLET PO SCH (11:26)
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
[2024-06-07] MEDS: CEROVITE ADV FORMULA TAB PO SCH (12:59)
[2024-06-07] MEDS: NICOTINE 14 MG/24 HR PATCH TD SCH (13:05)
[2024-06-07] MEDS: LORazepam 0.5 MG TAB PO PRN (20:23)
[2024-06-07] MEDS: OLANZapine 5 MG TABLET PO SCH (20:24)
[2024-06-07] MEDS: ALBUTEROL HFA 8 GM INHALER INH PRN (21:05)
[2024-06-07] MEDS ORDERED: OLANZapine 5 MG TABLET PO SCH (22:00)
[2024-06-08 06:41] VITALS: RESP 16
[2024-06-08] MEDS: PARoxetine HCL 20 MG TAB PO SCH (09:08)
[2024-06-08] MEDS: OMEGA-3 (PURIFIED FISH OIL) 1 GM CAP PO SCH (09:08)
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
[2024-06-08 09:35] LABS: Chol HDL Ratio 2.9 (0-5)
[2024-06-08 09:59] LABS: Estimated Average Glucose 114 mg/dl; Hemoglobin A1C 5.6 % (4.5-5.6)
[2024-06-08] MEDS: OLANZapine 10 MG TAB PO SCH (21:27)
[2024-06-09 07:02] VITALS: O2SAT 97
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
[2024-06-09 13:12] LABS: 7-Aminoclonaz, Confirm NEGATIVE ng/mL (<25); Hydro-Alp Ur, GC/MS 88 ng/mL (<25); Hydroxyethylflurazepam, Conf NEGATIVE ng/mL (<50); Hydroxymidazolam Ur, GC/MS NEGATIVE ng/mL (<50); Hydroxytriazolam NEGATIVE ng/mL (<50); Lorazepam, Ur GC/MS NEGATIVE ng/mL (<50); Marijuana Quant, GCMS Urine 34 ng/mL (<5); Nordiazepam, Confirm NEGATIVE ng/mL (<50); Oxazepam Ur, GC/MS NEGATIVE ng/mL (<50); Temazepam, Confirm NEGATIVE ng/mL (<50)
[2024-06-10] MEDS: ARIPiprazole 5 MG TAB PO SCH (08:52)
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
[2024-06-11] MEDS ORDERED: PARoxetine HCL 20 MG TAB PO SCH (09:00)
[2024-06-11] MEDS: PARoxetine HCL 10 MG TAB PO SCH (09:03)
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
[2024-06-11] MEDS: LORazepam 1 MG TAB PO PRN (19:13)
--- NOTE | 2024-06-12 13:46 | Psychiatric Progress Note ---
Date of Service June 12, 2024 Impression / Recommendations Impression ROOSEVELT VARGAS is a 49-year-old woman who currently lives in [place] alone, has a history of depression, anxiety, PTSD, body dysmorphia, cannabis-induced psychosis, and was admitted on 06/07/24 00:00 on a 201 voluntary commitment for psychosis, SI with a plan and HI toward ex-boyfriends. A: Patient was counseled various PTSD therapies. She continues to have distressing nightmares discussed treatment options. Plan to start doxazosin for PTSD related nightmares; patient was advised of side effects and adverse effects and agreeable. MNPR due to psychosis and homicidal ideation Overall, I spent a total of 45 minutes on this case including meeting with the patient, reviewing the chart, nursing report, multidisciplinary team meeting, orders, and documentation. (1) Psychosis: (2) Depression with suicidal ideation: (3) Post traumatic stress disorder (PTSD): (4) Cluster B personality disorder: (5) Cannabis abuse: Plan 06/12/2024: Start doxazosin 1 mg at bedtime. 06/11/2024: Continue medications and treatment plan. Administer international trauma questionnaire. 06/10/2024: Increase Paxil to 50mg daily. Discontinue abilify. Continue olanzapine. 06/09/2024: Continue with olanzapine for one additional night, then plan to cross- taper to abilify 5mg tomorrow AM. 06/08/2024: -Increase olanzapine to 10mg HS 06/07/2024: The patient was admitted to the [facility] ([facility] mental health unit) on q15 min checks (behavioral with suicide precautions) for safety. The patient will participate in group, recreational, and milieu therapies and will be offered additional individual and family sessions as clinically appropriate. -Start olanzapine 5mg HS -Continue prior to admission Paxil 40mg qd -Discontinue Xanax, start ativan 1.5mg BID prn for anxiety/agitation -Consult equipment operator intermodal yard/pastoral care Inventory Assets Strengths: has housing, willing to get treatment Needs: safety and stabilization, medication adjustment, additional coping skills, increased outpatient services Suicide Risk Level Suicide Risk Level: High-Moderate (q15 min suicide checks) (psychosis with SI with plan but feels safe in the hospital and able to ask for support) Suicide Risk Level Comments: Risk Factors Assessment Male: No : Yes Do You Have Access To A Gun?: No Mental Health Diagnoses: Yes Previous Attempt: Yes Previous Psychiatric Hospitalization: Yes Protective Factors Assessment Pentecostalism Beliefs: Yes Employed: No ([employer] for mental health) Good Rapport with Provider: Yes Interval History Identifying Information ROOSEVELT VARGAS is a 49-year-old woman who currently lives in [place] alone, has a history of depression, anxiety, PTSD, body dysmorphia, cannabis-induced psychosis, and was admitted on 06/07/24 00:00 on a 201 voluntary commitment for psychosis, SI with a plan and HI toward ex-boyfriends. Chief Complaint "Sad still" Review of Systems Sleep Information Total Hours of Sleep: 8 Sleep Comments: HS medications Meal Information Percent Meal Consumed - Breakfast: 100 Percent Meal Consumed - Lunch: 100 Percent Meal Consumed - Dinner: 100 Subjective Subjective Patient was seen & assessed and interval progress reviewed with treatment team nursing and social work Patient reports she has been reading the Bible. Says she was an atheist before but 8 years ago she found Maikel and felt enlightened. She found peace and comfort with Jew. She reports regularly going to astrologists, psychics, tarot card readers however sometimes they derail her thoughts. Reports having nightmares of violence and anxiety. They are vivid and they wake her up from sleep. She reports feeling "self-critical" and judges herself for her relationships with others. Says she does not feel understood by her family and her mental health concerns are minimized. Physical Exam Mental Examination Appearance: Well Groomed Eye Contact: Maintains Eye Contact Motor Behavior: Unremarkable Speech: Normal Mood: Anxious and Sad Affect: Congruent Thought Process: Intact, Circumstantial (at times) and Linear Thought Content: Intact (superstitious beliefs and possible delusions) Hallucinations: None Insight: Poor (to limited) Judgement: Poor (to limited) Vital Signs (Past 24 Hours) Last Vital Signs Temp 37.1 C 06/12/24 06:38 Pulse 76 06/12/24 06:38 Resp 16 06/12/24 06:38 BP 121/68 06/12/24 06:38 Pulse Ox 97 06/09/24 07:00 O2 Del Method Room Air 06/09/24 07:00 Results & Data ([facility] [[email or web address] Current Inpatient Medications Current Inpatient Medications: Current Inpatient Medications Acetaminophen (Acetaminophen 325 Mg Tab) 650 mg PO Q4H PRN PRN Reason: Headache or Minor Fever Stop: 07/07/24 00:39 Al Hydrox/Mg Hydrox/Simethicone (Aluminum/Magnesium Susp 30 Ml Udc) 30 ml PO Q4H PRN PRN Reason: GI Upset Stop: 07/07/24 00:39 Albuterol (Albuterol Hfa 8 Gm Inhaler) 2 puffs INH Q6H PRN PRN Reason: Shortness Of Breath Or Wheezing Stop: 07/07/24 11:59 Last Admin: 06/11/24 20:57 Dose: 2 puffs Bismuth Subsalicylate (Bismuth Subsalicylate Liqd 236 Ml) 15 ml PO PRN PRN PRN Reason: Loose Stool Stop: 07/07/24 00:39 Fish Oil ([place]-3 (Purified Fish Oil) 1 Gm Cap) 1 gm PO DAILY MARY Stop: 07/08/24 08:59 Last Admin: 06/12/24 08:52 Dose: 1 gm Hydroxyzine HCl (Hydroxyzine Hcl 25 Mg Tab) 50 mg PO HSZ PRN PRN Reason: Insomnia Stop: 07/07/24 00:39 Hydroxyzine HCl (Hydroxyzine Hcl 25 Mg Tab) 25 mg PO Q4H PRN PRN Reason: Anxiety Stop: 07/07/24 00:39 Lorazepam (Lorazepam 1 Mg Tab) 1.5 mg PO BID PRN PRN Reason: Anxiety/Agitation Stop: 07/11/24 19:07 Last Admin: 06/12/24 08:52 Dose: 1.5 mg Magnesium Hydroxide (Magnesium Hydroxide Susp 30 Ml Udc) 30 ml PO DAILY PRN PRN Reason: Constipation Stop: 07/07/24 00:39 Miscellaneous (Remove Nicoderm Patch) 1 each N/A DAILY@0859 [facility] Stop: 07/07/24 08:58 Last Admin: 06/12/24 08:56 Dose: Not Given Multivitamins/Minerals (Cerovite Adv Formula Tab) 1 tab PO QAM [facility] Stop: 07/07/24 12:14 Last Admin: 06/12/24 08:52 Dose: 1 tab Nicotine (Nicotine 14 Mg/24 Hr Patch) 1 patch TD QAM [facility] Stop: 07/07/24 08:59 Last Admin: 06/12/24 08:56 Dose: Not Given Olanzapine (Olanzapine 10 Mg Tab) 10 mg PO HS MARY Stop: 07/08/24 21:59 Last Admin: 06/11/24 20:27 Dose: 10 mg Paroxetine HCl (Paroxetine Hcl 10 Mg Tab) 50 mg PO DAILY MARY Stop: 07/11/24 08:59 Last Admin: 06/12/24 08:52 Dose: 50 mg Sodium Chloride (Sodium Chloride 0.65% Na Soln 45 Ml ([place])) 1 - 2 sprays NA PRN PRN PRN Reason: Nasal Dryness/Congestion Stop: 07/07/24 00:39 Mental Health & Subst Abuse Tx Winch Runner Name of Winch Runner: [employer] Hugo Phone Number for Winch Runner: [phone] Case Management Appointment Comment: Will schedule post hospitalization visit in community within 3 days of [place] Post Discharge Appointments Primary Care Physician Name Of Family Doctor/PCP: Dr. Gama Primary Care Date of Future Appointment with PCP: 06/20 - Thursday Time of Appointment with PCP: 11:30AM Provider Appointment Comment: [facility] [place] [id number]
[2024-06-12] MEDS: DOXAZOSIN MESYLATE 1 MG TAB PO SCH (20:37)
[2024-06-13] MEDS: LORazepam 1 MG TAB PO PRN (13:22)
--- NOTE | 2024-06-13 16:29 | Psychiatric Progress Note ---
Date of Service June 13, 2024 Impression / Recommendations Impression ROOSEVELT VARGAS is a 49-year-old woman who currently lives in [place] alone, has a history of depression, anxiety, PTSD, body dysmorphia, cannabis-induced psychosis, and was admitted on 06/07/24 00:00 on a 201 voluntary commitment for psychosis, SI with a plan and HI toward ex-boyfriends. A: Patient tolerates doxazosin well and reports some improvement in intensity of nightmares. Plan to optimize dose to 2 mg at bedtime. Concern from excess sedation from higher dose lorazepam and will decrease dose and schedule 3 times daily as needed. Patient was encouraged to continue outpatient PTSD counseling upon discharge and was connected with [facility]. MNPR due to psychosis and homicidal ideation Overall, I spent a total of 35 minutes on this case including meeting with the patient, reviewing the chart, nursing report, multidisciplinary team meeting, orders, and documentation. (1) Psychosis: (2) Depression with suicidal ideation: (3) Post traumatic stress disorder (PTSD): (4) Cluster B personality disorder: (5) Cannabis abuse: Plan 06/13/2024: Decrease lorazepam to 1 mg 3 times daily as needed. Increased doxazosin to 2 mg at bedtime. 06/12/2024: Start doxazosin 1 mg at bedtime. 06/11/2024: Continue medications and treatment plan. Administer international trauma questionnaire. 06/10/2024: Increase Paxil to 50mg daily. Discontinue abilify. Continue olanzapine. 06/09/2024: Continue with olanzapine for one additional night, then plan to cross- taper to abilify 5mg tomorrow AM. 06/08/2024: -Increase olanzapine to 10mg HS 06/07/2024: The patient was admitted to the [facility] ([facility] mental health unit) on q15 min checks (behavioral with suicide precautions) for safety. The patient will participate in group, recreational, and milieu therapies and will be offered additional individual and family sessions as clinically appropriate. -Start olanzapine 5mg HS -Continue prior to admission Paxil 40mg qd -Discontinue Xanax, start ativan 1.5mg BID prn for anxiety/agitation -Consult landscape account manager/pastoral care Inventory Assets Strengths: has housing, willing to get treatment Needs: safety and stabilization, medication adjustment, additional coping skills, increased outpatient services Suicide Risk Level Suicide Risk Level: High-Moderate (q15 min suicide checks) (psychosis with SI with plan but feels safe in the hospital and able to ask for support) Suicide Risk Level Comments: Risk Factors Assessment Male: No : Yes Do You Have Access To A Gun?: No Mental Health Diagnoses: Yes Previous Attempt: Yes Previous Psychiatric Hospitalization: Yes Protective Factors Assessment Voodoo Beliefs: Yes Employed: No ([employer] for mental health) Good Rapport with Provider: Yes Interval History Identifying Information ROOSEVELT VARGAS is a 49-year-old woman who currently lives in [place] alone, has a history of depression, anxiety, PTSD, body dysmorphia, cannabis-induced psychosis, and was admitted on 06/07/24 00:00 on a 201 voluntary commitment for psychosis, SI with a plan and HI toward ex-boyfriends. Chief Complaint "Last night was better" Review of Systems Sleep Information Total Hours of Sleep: 7.75 Sleep Comments: HS medications Meal Information Percent Meal Consumed - Breakfast: 100 Percent Meal Consumed - Lunch: 100 Percent Meal Consumed - Dinner: 100 Subjective Subjective Patient was seen & assessed and interval progress reviewed with treatment team nursing and social work The patient reports having less distressing dreams last night and did not have events of violence. Has been "praying a lot" and wants to spend more time at restorationism. She denies any lightheadedness or dizziness this morning. Reports feel ing anxious throughout the day. Says that her ex feels like the "demon". He says that his initials are DC like "devil child". Reports he was narcissistic and manipulative and she considers taking a break from the relationship. She denies active plans of suicidal or homicidal ideation. Physical Exam Mental Examination Appearance: Well Groomed Eye Contact: Maintains Eye Contact Motor Behavior: Unremarkable Speech: Normal Mood: Anxious and Sad Affect: Congruent Thought Process: Intact, Circumstantial (at times) and Linear Thought Content: Intact (superstitious beliefs and possible delusions) Hallucinations: None Insight: Poor (to limited) Judgement: Poor (to limited) Vital Signs (Past 24 Hours) Last Vital Signs Temp 37 C 06/13/24 06:31 Pulse 75 06/13/24 06:32 Resp 16 06/13/24 06:31 BP 135/83 06/13/24 06:32 Pulse Ox 97 06/09/24 07:00 O2 Del Method Room Air 06/09/24 07:00 Results & Data ([facility]) Current Inpatient Medications Current Inpatient Medications: Current Inpatient Medications Acetaminophen (Acetaminophen 325 Mg Tab) 650 mg PO Q4H PRN PRN Reason: Headache or Minor Fever Stop: 07/07/24 00:39 Al Hydrox/Mg Hydrox/Simethicone (Aluminum/Magnesium Susp 30 Ml Udc) 30 ml PO Q4H PRN PRN Reason: GI Upset Stop: 07/07/24 00:39 Albuterol (Albuterol Hfa 8 Gm Inhaler) 2 puffs INH Q6H PRN PRN Reason: Shortness Of Breath Or Wheezing Stop: 07/07/24 11:59 Last Admin: 06/11/24 20:57 Dose: 2 puffs Bismuth Subsalicylate (Bismuth Subsalicylate Liqd 236 Ml) 15 ml PO PRN PRN PRN Reason: Loose Stool Stop: 07/07/24 00:39 Doxazosin Mesylate (Doxazosin Mesylate Tab 2 Mg Tab) 2 mg PO HS MARY Stop: 07/13/24 21:59 Fish Oil ([place]-3 (Purified Fish Oil) 1 Gm Cap) 1 gm PO DAILY MARY Stop: 07/08/24 08:59 Last Admin: 06/13/24 08:43 Dose: 1 gm Hydroxyzine HCl (Hydroxyzine Hcl 25 Mg Tab) 50 mg PO HSZ PRN PRN Reason: Insomnia Stop: 07/07/24 00:39 Hydroxyzine HCl (Hydroxyzine Hcl 25 Mg Tab) 25 mg PO Q4H PRN PRN Reason: Anxiety Stop: 07/07/24 00:39 Lorazepam (Lorazepam 1 Mg Tab) 1 mg PO TID PRN PRN Reason: Anxiety/Agitation Stop: 07/11/24 19:08 Last Admin: 06/13/24 13:22 Dose: 1 mg Magnesium Hydroxide (Magnesium Hydroxide Susp 30 Ml Udc) 30 ml PO DAILY PRN PRN Reason: Constipation Stop: 07/07/24 00:39 Miscellaneous (Remove Nicoderm Patch) 1 each N/A DAILY@0859 MARY Stop: 07/07/24 08:58 Last Admin: 06/13/24 08:49 Dose: Not Given Multivitamins/Minerals (Cerovite Adv Formula Tab) 1 tab PO QAM MARY Stop: 07/07/24 12:14 Last Admin: 06/13/24 08:43 Dose: 1 tab Nicotine (Nicotine 14 Mg/24 Hr Patch) 1 patch TD QAM MARY Stop: 07/07/24 08:59 Last Admin: 06/13/24 08:49 Dose: Not Given Olanzapine (Olanzapine 10 Mg Tab) 10 mg PO HS MARY Stop: 07/08/24 21:59 Last Admin: 06/12/24 20:38 Dose: 10 mg Paroxetine HCl (Paroxetine Hcl 10 Mg Tab) 50 mg PO DAILY MARY Stop: 07/11/24 08:59 Last Admin: 06/13/24 08:45 Dose: 50 mg Sodium Chloride (Sodium Chloride 0.65% Na Soln 45 Ml ([place])) 1 - 2 sprays NA PRN PRN PRN Reason: Nasal Dryness/Congestion Stop: 07/07/24 00:39 Mental Health & Subst Abuse Tx Psychiatrist Name of Psychiatrist: [facility] Psychiatrist's Date Of Appointment With Psychiatric Provider: 06/27/24 Time of Appointment with Psychiatrist: 1:15 PM Please bring photo ID & Insurance Card Psychiatric Appointment Comment: [facility] is a secure intake that will be sent approx 1 week prior to appt. Therapist Name of Therapist: [facility] Therapy Appointment Comment: You are on the short waitlist for therapy. Telehealth & in-person available Ballpoint Pen Cartridge Tester Name of Ballpoint Pen Cartridge Tester: [employer] Hugo Phone Number for Ballpoint Pen Cartridge Tester: [phone] Case Management Appointment Comment: Will schedule post hospitalization visit in community within 3 days of [place] Post Discharge Appointments Primary Care Physician Name Of Family Doctor/PCP: Dr. Gama Primary Care Date of Future Appointment with PCP: 06/20 - Thursday Time of Appointment with PCP: 11:30AM Provider Appointment Comment: [address] [place] [address] [place] [id number]
[2024-06-13] MEDS: DOXAZosin MESYLATE TAB 2 MG TAB PO SCH (21:35)
[2024-06-14 06:48] VITALS: TEMP 98.4
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
[2024-06-14 10:07] VITALS: BP 146/88; PULSE 52
== END 2024-06-14 10:33 | disposition home or self-care (01) | DRG 882 ==
LOC: ED 20:07 → SUATTDRO 06-07 → 3S 06-07

== ENCOUNTER 2025-02-21 21:59 | Inpatient (IN) ==
[2025-02-21 22:33] LABS: Basophils # (auto) 0.05 K/uL (0.00-0.20); Basophils % (auto) 0.6 %; Eosinophils # (auto) 0.46 K/uL (0.00-0.50); Eosinophils % (auto) 5.5 %; Hematocrit (blood only) 41.4 % (37.0-47.0); Hemoglobin 14.5 g/dl (12.0-16.0); Immature Granulocytes # (auto) 0.02 K/uL (0.01-0.20); Immature Granulocytes % (auto) 0.2 %; Lymphocytes # (auto) 3.92 K/uL (1.20-3.40); Lymphocytes % (auto) 46.5 %; Mean Corpuscular Hemoglobin 31.4 pg (25.0-34.0); Mean Corpuscular Volume 89.6 fL (80.0-100.0); Mean Platelet Volume 9.4 fL (9.4-12.4); Monocytes # (auto) 0.79 K/uL (0.11-0.59); Monocytes % (auto) 9.4 %; Neutrophils # (auto) 3.19 K/uL (1.40-6.50); Neutrophils % (auto) 37.8 %; Platelet Count 321 K/uL (130-400); RDW Coefficient of Variation 13.3 % (11.5-14.5); RDW Standard Deviation 43.8 fL (36.4-46.3); Red Blood Count 4.62 M/uL (4.20-5.40); White Blood Count 8.43 K/ul (4.8-10.8)
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
[2025-02-21 22:44] LABS: Appearance Urine Cloudy (Clear); Bacteria Urine Automated 1+ (None Seen); Bilirubin Urine Negative (Negative); Blood Urine Negative (Negative); Cast Urine Automated 0-2 /lpf (0-2); Color Urine Yellow; Glucose Urine UA Negative (Negative); Ketones Urine Trace (Negative); Leukocyte Esterase Urine Trace (Negative); Nitrite Urine Negative (Negative); Protein Urine 1+ (Negative); Specific Gravity Urine 1.017 (1.000-1.030); Urobilinogen Urine Negative (Negative); WBC Urine Automated 0-5 /hpf (0-5)
[2025-02-21 22:49] LABS: Albumin Globulin Ratio 1.4 (0.9-2); Albumin Level 4.5 gm/dl (3.4-5.0); BUN Creatinine Ratio 22.1 (10-20); Bilirubin,Total 0.5 mg/dl (0.2-1.0); Creatinine Clr Calc Pharmacy 93.4 ml/min; Globulin 3.3 gm/dl (2.5-4.0); Potassium 3.9 mmol/L (3.5-5.1); Total Protein 7.8 gm/dl (6.0-8.3)
[2025-02-21 22:51] LABS: Amphetamines+Metham, Urine Neg (Neg); Barbiturates, Urine Neg (Neg); Benzodiazepine, Urine Neg (Neg); Cocaine, Urine Neg (Neg); Fentanyl, Urine Neg (Neg); MDMA (Ecstacy), Urine Neg (Neg); Marijuana, Urine Pos (Neg); Methadone, Urine Neg (Neg); Opiate, Urine Neg (Neg); Phencyclidine, Urine Neg (Neg)
[2025-02-21 22:51] LABS: Acetaminophen < 3 ug/ml (10-30); Salicylate < 3.0 mg/dl (3.0-30)
[2025-02-21 23:04] LABS: Thyroid Stimulating Hormone 6.838 uIu/ml (0.300-4.500)
[2025-02-22 06:24] VITALS: RESP 16
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
[2025-02-23 08:00] LABS: Chol HDL Ratio 2.5 (0-5)
[2025-02-23 08:04] LABS: Estimated Average Glucose 123 mg/dl; Hemoglobin A1C 5.9 % (4.5-5.6)
[2025-02-23 08:15] LABS: Thyroid Stimulating Hormone 2.571 uIu/ml (0.300-4.500)
--- NOTE | 2025-02-23 14:34 | Psychiatric Progress Note ---
Date of Service February 23, 2025 Impression / Recommendations Impression ROOSEVELT Lambert" is a 50-year-old F who currently lives alone, has a history of depression, anxiety, PTSD, body dysmorphia, cannabis-induced psychosis, and was admitted on 02/22/25 01:06 on a 201 voluntary commitment for suicidal ideation. Presentation concerning for PTSD and depression. Presents with on-going suicidal ideation in relation to recent and financial stressors and active psychiatric symptoms. Patient self discontinued previous psychotropics and presents with a resurgence of PTSD related anxiety and nightmares and major depressive episode. Presents with persecutory delusions with ideas of reference and anxious paranoia. Daily marijuana user and may be contributing to psychosis. Patient presents limited insight into her symptoms and treatment and reluctant to start medications given past intolerability. A:Patient presents an improvement in mood however continues to have disrupted sleep and maintains suicidal ideation. Labs reviewed: Vitamin D insufficient; TSH unremarkable; triglycerides elevated and prediabetic based on A1c. She was counseled about lifestyle modifications to improved blood sugar control. Plan to start vitamin D supplementation. Patient was educated about PTSD and depression and the role medications can have to alleviate symptoms; continues to refuse antidepressant medication. Recommended intensive outpatient therapy. Counseled about ongoing marijuana use and risks such as increased paranoia, anxiety, psychosis. Overall, I spent a total of 40 minutes with this case including review of chart records, nursing report, review of lab work, direct evaluation of the patient at bedside, counseling the patient, multidisciplinary team meeting, orders, and documentation in the electronic health record. (1) Suicidal ideation: (2) Depression: (3) Paranoia: (4) Delusion of persecution: (5) Post traumatic stress disorder (PTSD): (6) Paranoid personality disorder: (7) Cluster B personality disorder: (8) Cannabis use disorder: (9) Polysubstance abuse: (10) Nicotine dependence: (11) Asthma: (12) Vitamin D insufficiency: (13) Prediabetes: Plan 02/23/2025: Increase trazodone to 100 mg at bedtime. Start vitamin D 125 mcg daily. Provided education on mindfulness meditation and sleep hygiene. 02/22/2025:The patient was admitted to the [facility] ([facility]) on q15 min checks (behavioral with suicide precautions) for safety. The patient will participate in group, recreational, and milieu therapies and will be offered additional individual and family sessions as clinically appropriate. - Start trazodone 50 mg at bedtime Start doxazosin 1 mg at bedtime Labs: Repeat TSH, Vit B12, Vit D, A1C, fasting lipids Inventory Assets Strengths: support seeking, assertive Needs: medication adherence, improved self image Suicide Risk Level Suicide Risk Level: Moderate (q15 min suicide checks) Risk Factors Assessment Male: No : Yes Do You Have Access To A Gun?: No Health Problems: Yes Mental Health Diagnoses: Yes Substance Use Disorders: Yes Previous Attempt: Yes Family History of Suicide: No Previous Psychiatric Hospitalization: Yes Hopelessness: Yes Protective Factors Assessment Uatsdin Beliefs: No : No Responsible for Young Children: No Employed: No ([employer]) Stable Relationships: No Supportive Family: No Good Rapport with Provider: Yes Absence of Any Risk Factors Above: No Interval History Identifying Information ROOSEVELT Lambert" is a 50-year-old F who currently lives alone, has a history of depression, anxiety, PTSD, body dysmorphia, cannabis-induced psychosis, and was admitted on 02/22/25 01:06 on a 201 voluntary commitment for suicidal ideation. Chief Complaint Suicidal ideation Review of Systems Sleep Information Total Hours of Sleep: 6.5 Meal Information Percent Meal Consumed - Breakfast: 100 Percent Meal Consumed - Lunch: 90 Percent Meal Consumed - Dinner: 100 Subjective Subjective Patient was seen & assessed and interval progress reviewed with treatment team nursing and social work Overnight patient slept 6.5 hours. Received Vistaril as needed. On interview she reports having disrupted sleep and vivid dreams. Took some time for her nightly antihistamine to work. On interview she appears more jovial however becomes tearful at times. Continues to be distressed about her problems with student loans and says that the [employer] government is corrupt and that they are trying to do something to her phone and are changing her data. She complains of ongoing suicidal ideation and passive suicidal thoughts. Presents multiple ideas of reference that indicate positive and negative things in her life. Says that she is spiritual and does not want to try many medications. Physical Exam Mental Examination Appearance: Disheveled Eye Contact: Fleeting Contact Motor Behavior: Restless Speech: Rambling Mood: Anxious and Tearful Affect: Congruent, Nervous and Sad Thought Process: Intact and Linear Thought Content: Racing and Preoccupation Hallucinations: None Insight: Poor Judgement: Poor Vital Signs (Past 24 Hours) Last Vital Signs Temp 36.8 C 02/23/25 06:20 Pulse 76 02/23/25 06:21 Resp 16 02/23/25 06:20 BP 119/77 02/23/25 06:21 Pulse Ox 95 02/22/25 19:25 O2 Del Method Room Air 02/22/25 19:25 Results & Data ([facility]) Laboratory Results Laboratory Results - last 24 hr 02/23/25 07:29 Estimat Average Glucose 123 Hemoglobin A1c 5.9 H Triglycerides 155 H Cholesterol 174 LDL Cholesterol, Calc 74 VLDL Cholesterol, Calc 31 H HDL Cholesterol 69 Cholesterol/HDL Ratio 2.5 Vitamin B12 372 25-OH Vitamin D Total 25.6 L TSH 2.571 Current Inpatient Medications Current Inpatient Medications: Current Inpatient Medications Acetaminophen (Acetaminophen 325 Mg Tab) 650 mg PO Q4H PRN PRN Reason: Headache or Minor Fever Stop: 03/24/25 01:04 Al Hydrox/Mg Hydrox/Simethicone (Aluminum/Magnesium Susp 30 Ml Udc) 30 ml PO Q4H PRN PRN Reason: GI Upset Stop: 03/24/25 01:04 Albuterol (Albuterol Hfa 8 Gm Inhaler) 2 puffs INH Q4 PRN PRN Reason: Shortness Of Breath Or Wheezing Stop: 03/24/25 01:24 Last Admin: 02/23/25 10:26 Dose: 2 puffs Bismuth Subsalicylate (Bismuth Subsalicylate 262 Mg Chew) 2 tab PO Q30M PRN PRN Reason: Loose Stool/Diarrhea Stop: 03/24/25 01:04 Doxazosin Mesylate (Doxazosin Mesylate 1 Mg Tab) 1 mg PO HS MARY Stop: 03/24/25 21:59 Last Admin: 02/22/25 20:23 Dose: 1 mg Hydroxyzine HCl (Hydroxyzine Hcl 25 Mg Tab) 50 mg PO HSZ PRN PRN Reason: Insomnia Stop: 03/24/25 01:04 Last Admin: 02/22/25 21:45 Dose: 50 mg Hydroxyzine HCl (Hydroxyzine Hcl 25 Mg Tab) 25 mg PO Q4H PRN PRN Reason: Anxiety Stop: 03/24/25 01:04 Ibuprofen (Ibuprofen 200 Mg Tab) 400 mg PO Q4H PRN PRN Reason: Pain or Fever Stop: 03/24/25 14:31 Last Admin: 02/23/25 11:54 Dose: 400 mg Magnesium Hydroxide (Magnesium Hydroxide Susp 30 Ml Udc) 30 ml PO DAILY PRN PRN Reason: Constipation Stop: 03/24/25 01:04 Melatonin (Melatonin 3 Mg Tab) 3 mg PO HS PRN PRN Reason: Sleep Stop: 03/24/25 01:27 Miscellaneous (Remove Nicoderm Patch) 1 each N/A DAILY@0859 [facility] Stop: 03/24/25 08:58 Last Admin: 02/23/25 09:35 Dose: Not Given Nicotine (Nicotine 14 Mg/24 Hr Patch) 1 patch TD QAM [facility] Stop: 03/24/25 08:59 Last Admin: 02/23/25 09:35 Dose: Not Given Nicotine Polacrilex (Nicotine Polacrilex 2 Mg Gum) 1 piece MT PRN PRN PRN Reason: Nicotine Withdrawal Symptoms Stop: 03/24/25 01:23 Sodium Chloride (Sodium Chloride 0.65% Na Soln 45 Ml ([place])) 1 - 2 sprays NA PRN PRN PRN Reason: Nasal Dryness/Congestion Stop: 03/24/25 01:04 Trazodone HCl (Trazodone Hcl 100 Mg Tab) 100 mg PO PM [facility] Stop: 03/25/25 20:59 Vitamin D (Cholecalciferol 125 Mcg (5,000 Units) Tab) 125 mcg PO QAM [facility] Stop: 03/25/25 10:14 Last Admin: 02/23/25 10:46 Dose: 125 mcg Mental Health & Subst Abuse Tx Psychiatrist Name of Psychiatrist: Nuzhat Liz PA-C [facility] Psychiatrist's Therapist Name of Therapist: [facility] Appointment Comment: Next [facility] 03/28. They will call pt directly to schedule intake after DC. Field Clerk Name of Field Clerk: Dennys MANE Phone Number for Field Clerk: [phone] Date of Appointment with Field Clerk: 03/02/25 Time of Appointment with Field Clerk: 12:00 pm Case Management Appointment Comment: Unit meeting with pt on 02/24/25 @12 Post Discharge Appointments Primary Care Physician [facility] Of Family Doctor[facility] (10) Nicotine dependence Nicotine product type: cigarettes Substance use status: uncomplicated Qualified Code(s): F17.210 - Nicotine dependence, cigarettes, uncomplicated (11) Asthma Asthma severity: mild Asthma persistence: intermittent Asthma complication type: with acute exacerbation Qualified Code(s): J45.21 - Mild intermittent asthma with (acute) exacerbation
--- NOTE | 2025-02-24 14:38 | Psychiatric Progress Note ---
Date of Service February 24, 2025 Impression / Recommendations Impression ROOSEVELT Lambert" is a 50-year-old F who currently lives alone, has a history of depression, anxiety, PTSD, body dysmorphia, cannabis-induced psychosis, and was admitted on 02/22/25 01:06 on a 201 voluntary commitment for suicidal ideation. Presentation concerning for PTSD and depression. Presents with on-going suicidal ideation in relation to recent and financial stressors and active psychiatric symptoms. Patient self discontinued previous psychotropics and presents with a resurgence of PTSD related anxiety and nightmares and major depressive episode. Presents with persecutory delusions with ideas of reference and anxious paranoia. Daily marijuana user and may be contributing to psychosis. Patient presents limited insight into her symptoms and treatment and reluctant to start medications given past intolerability. A: Patient presenting improved anxiety symptoms however continues to have some disrupted sleep. Does not appear to be having distressing dreams that are waking her up in an anxious state. Today I educated her about mindfulness meditation and cognitive behavioral therapy. Continues to present some passive suicidal ideation. Overall, I spent a total of 40 minutes with this case including review of chart records, nursing report, review of lab work, direct evaluation of the patient at bedside, counseling the patient, multidisciplinary team meeting, orders, and documentation in the electronic health record. (1) Suicidal ideation: (2) Depression: (3) Paranoia: (4) Delusion of persecution: (5) Post traumatic stress disorder (PTSD): (6) Paranoid personality disorder: (7) Cluster B personality disorder: (8) Cannabis use disorder: (9) Polysubstance abuse: (10) Nicotine dependence: (11) Asthma: (12) Vitamin D insufficiency: (13) Prediabetes: Plan 02/24/2025: Increase doxazosin to 2 mg at bedtime. Start multivitamin and fish oil. 02/23/2025: Increase trazodone to 100 mg at bedtime. Start vitamin D 125 mcg daily. Provided education on mindfulness meditation and sleep hygiene. 02/22/2025:The patient was admitted to the [facility] ([facility] health unit) on q15 min checks (behavioral with suicide precautions) for safety. The patient will participate in group, recreational, and milieu therapies and will be offered additional individual and family sessions as clinically appropriate. - Start trazodone 50 mg at bedtime Start doxazosin 1 mg at bedtime Labs: Repeat TSH, Vit B12, Vit D, A1C, fasting lipids Inventory Assets Strengths: support seeking, assertive Needs: medication adherence, improved self image Suicide Risk Level Suicide Risk Level: Moderate (q15 min suicide checks) Risk Factors Assessment Male: No : Yes Do You Have Access To A Gun?: No Health Problems: Yes Mental Health Diagnoses: Yes Substance Use Disorders: Yes Previous Attempt: Yes Family History of Suicide: No Previous Psychiatric Hospitalization: Yes Hopelessness: Yes Protective Factors Assessment Baptism Beliefs: No : No Responsible for Young Children: No Employed: No ([employer]) Stable Relationships: No Supportive Family: No Good Rapport with Provider: Yes Absence of Any Risk Factors Above: No Interval History Identifying Information ROOSEVELT Lambert" is a 50-year-old F who currently lives alone, has a history of depression, anxiety, PTSD, body dysmorphia, cannabis-induced psychosis, and was admitted on 02/22/25 01:06 on a 201 voluntary commitment for suicidal ideation. Chief Complaint Anxiety, depression Review of Systems Sleep Information Total Hours of Sleep: 8.25 Meal Information Percent Meal Consumed - Breakfast: 100 Percent Meal Consumed - Lunch: 100 Percent Meal Consumed - Dinner: 100 Subjective Subjective Patient was seen & assessed and interval progress reviewed with treatment team nursing and social work Patient slept 8.25 hours. Patient expressed interest in returning to you intensive outpatient program. On interview she reports getting disrupted sleep. Took a long nap yesterday. Continues to have vivid dreams however did not wake her up in a panic state. Reports less anxiety overall. Today I conducted the session of mindfulness meditation with her and she described feelings of fear, frustration, anger, hopelessness, sadness, regret. She presented recurrent anxious ruminations and required frequent redirection. Physical Exam Mental Examination Appearance: Disheveled Eye Contact: Fleeting Contact Motor Behavior: Restless Speech: Rambling Mood: Anxious and Tearful Affect: Congruent, Nervous and Sad Thought Process: Intact and Linear Thought Content: Racing and Preoccupation Hallucinations: None Insight: Poor Judgement: Poor Vital Signs (Past 24 Hours) Last Vital Signs Temp 36.6 C 02/24/25 06:19 Pulse 70 02/24/25 06:20 Resp 16 02/24/25 06:19 BP 111/68 02/24/25 06:20 Pulse Ox 95 02/22/25 19:25 O2 Del Method Room Air 02/22/25 19:25 Results & Data ([facility]) Current Inpatient Medications Current Inpatient Medications: Current Inpatient Medications Acetaminophen (Acetaminophen 325 Mg Tab) 650 mg PO Q4H PRN PRN Reason: Headache or Minor Fever Stop: 03/24/25 01:04 Al Hydrox/Mg Hydrox/Simethicone (Aluminum/Magnesium Susp 30 Ml Udc) 30 ml PO Q4H PRN PRN Reason: GI Upset Stop: 03/24/25 01:04 Albuterol (Albuterol Hfa 8 Gm Inhaler) 2 puffs INH Q4 PRN PRN Reason: Shortness Of Breath Or Wheezing Stop: 03/24/25 01:24 Last Admin: 02/23/25 18:31 Dose: 2 puffs Bismuth Subsalicylate (Bismuth Subsalicylate 262 Mg Chew) 2 tab PO Q30M PRN PRN Reason: Loose Stool/Diarrhea Stop: 03/24/25 01:04 Doxazosin Mesylate (Doxazosin Mesylate 1 Mg Tab) 1 mg PO HS MARY Stop: 03/24/25 21:59 Last Admin: 02/23/25 20:48 Dose: 1 mg Hydroxyzine HCl (Hydroxyzine Hcl 25 Mg Tab) 50 mg PO HSZ PRN PRN Reason: Insomnia Stop: 03/24/25 01:04 Last Admin: 02/22/25 21:45 Dose: 50 mg Hydroxyzine HCl (Hydroxyzine Hcl 25 Mg Tab) 25 mg PO Q4H PRN PRN Reason: Anxiety Stop: 03/24/25 01:04 Ibuprofen (Ibuprofen 200 Mg Tab) 400 mg PO Q4H PRN PRN Reason: Pain or Fever Stop: 03/24/25 14:31 Last Admin: 02/23/25 11:54 Dose: 400 mg Magnesium Hydroxide (Magnesium Hydroxide Susp 30 Ml Udc) 30 ml PO DAILY PRN PRN Reason: Constipation Stop: 03/24/25 01:04 Melatonin (Melatonin 3 Mg Tab) 3 mg PO HS PRN PRN Reason: Sleep Stop: 03/24/25 01:27 Miscellaneous (Remove Nicoderm Patch) 1 each N/A DAILY@0859 [facility] Stop: 03/24/25 08:58 Last Admin: 02/24/25 08:57 Dose: Not Given Nicotine (Nicotine 14 Mg/24 Hr Patch) 1 patch TD QAM MARY Stop: 03/24/25 08:59 Last Admin: 02/24/25 08:57 Dose: Not Given Nicotine Polacrilex (Nicotine Polacrilex 2 Mg Gum) 1 piece MT PRN PRN PRN Reason: Nicotine Withdrawal Symptoms Stop: 03/24/25 01:23 Last Admin: 02/24/25 08:58 Dose: 1 piece Sodium Chloride (Sodium Chloride 0.65% Na Soln 45 Ml ([place])) 1 - 2 sprays NA PRN PRN PRN Reason: Nasal Dryness/Congestion Stop: 03/24/25 01:04 Trazodone HCl (Trazodone Hcl 100 Mg Tab) 100 mg PO PM MARY Stop: 03/25/25 20:59 Last Admin: 02/23/25 20:49 Dose: 100 mg Vitamin D (Cholecalciferol 125 Mcg (5,000 Units) Tab) 125 mcg PO QAM MARY Stop: 03/25/25 10:14 Last Admin: 02/24/25 08:57 Dose: 125 mcg Mental Health & Subst Abuse Tx Psychiatrist Name of Psychiatrist: Nuzhat Liz PA-C [facility] Psychiatrist's Therapist Name of Therapist: [facility] Appointment Comment: Next IOP 03/28. They will call pt directly to [facility] after DC. Tip Out Worker Name of Tip Out Worker: Dennys MANE Phone Number for Tip Out Worker: [phone] Date of Appointment with Tip Out Worker: 03/02/25 Time of Appointment with Tip Out Worker: 12:00 pm Case Management Appointment Comment: Unit meeting with pt on 02/24/25 @12 Post Discharge Appointments Primary Care Physician [facility] Date of Future Appointment with PCP: 03/02 Time of Appointment with PCP: 1:30PM Provider Appointment Comment: [place] location Contact Information Discharge Discharge Address: [address] [place] [address] [place] [id number] (10) Nicotine dependence Nicotine product type: cigarettes Substance use status: uncomplicated Qualified Code(s): F17.210 - Nicotine dependence, cigarettes, uncomplicated (11) Asthma Asthma severity: mild Asthma persistence: intermittent Asthma complication type: with acute exacerbation Qualified Code(s): J45.21 - Mild intermittent asthma with (acute) exacerbation
--- NOTE | 2025-02-25 10:31 | Psychiatric Progress Note ---
Date of Service February 25, 2025 Impression / Recommendations Impression ROOSEVELT Knutson" is a 50-year-old woman who currently lives alone, has a history of depression, anxiety, PTSD, body dysmorphia, cannabis-induced psychosis, and was admitted on 02/22/25 01:06 on a 201 voluntary commitment for suicidal ideation. Presentation concerning for PTSD and depression. Presents with on-going suicidal ideation in relation to recent and financial stressors and active psychiatric symptoms. Patient self discontinued previous psychotropics and presents with a resurgence of PTSD related anxiety and nightmares and major depressive episode. Presents with persecutory delusions with ideas of reference and anxious paranoia. Daily marijuana user and may be contributing to psychosis. Patient presents limited insight into her symptoms and treatment and reluctant to start medications given past intolerability. A:Some increased anxiety in context of upsetting phone call but she is finding prn Vistaril beneficial. Tolerating medications and sleep is improving. Discussed CBT strategies to manage emotional responses and impulsive reactions. Overall, I spent a total of 45 minutes on this case including meeting with the patient, reviewing the chart, nursing report, multidisciplinary team meeting, orders, and documentation. (1) Suicidal ideation: (2) Depression: (3) Paranoia: (4) Delusion of persecution: (5) Post traumatic stress disorder (PTSD): (6) Paranoid personality disorder: (7) Cluster B personality disorder: (8) Cannabis use disorder: (9) Polysubstance abuse: (10) Nicotine dependence: (11) Asthma: (12) Vitamin D insufficiency: (13) Prediabetes: Plan 02/25/2025: Continue current medications and tx plan 02/24/2025: Increase doxazosin to 2 mg at bedtime. Start multivitamin and fish oil. 02/23/2025: Increase trazodone to 100 mg at bedtime. Start vitamin D 125 mcg daily. Provided education on mindfulness meditation and sleep hygiene. 02/22/2025:The patient was admitted to the [facility] ([facility] unit) on q15 min checks (behavioral with suicide precautions) for safety. The patient will participate in group, recreational, and milieu therapies and will be offered additional individual and family sessions as clinically appropriate. - Start trazodone 50 mg at bedtime Start doxazosin 1 mg at bedtime Labs: Repeat TSH, Vit B12, Vit D, A1C, fasting lipids Inventory Assets Strengths: support seeking, assertive Needs: medication adherence, improved self image Suicide Risk Level Suicide Risk Level: Moderate (q15 min suicide checks) (intermittent SI but lessening, mood improving, feels safe and feels able to ask for support if needed) Risk Factors Assessment Male: No : Yes Do You Have Access To A Gun?: No Health Problems: Yes Mental Health Diagnoses: Yes Substance Use Disorders: Yes Previous Attempt: Yes Family History of Suicide: No Previous Psychiatric Hospitalization: Yes Hopelessness: Yes Protective Factors Assessment Hinduism Beliefs: No : No Responsible for Young Children: No Employed: No ([employer]) Stable Relationships: No Supportive Family: No Good Rapport with Provider: Yes Absence of Any Risk Factors Above: No Interval History Identifying Information ROOSEVELT Lambert" is a 50-year-old F who currently lives alone, has a history of depression, anxiety, PTSD, body dysmorphia, cannabis-induced psychosis, and was admitted on 02/22/25 01:06 on a 201 voluntary commitment for suicidal ideation. Chief Complaint "Ok, I was upset after my mom hung up on me". Review of Systems Sleep Information Total Hours of Sleep: 9 Meal Information Percent Meal Consumed - Breakfast: 100 Percent Meal Consumed - Lunch: 100 Percent Meal Consumed - Dinner: 100 Subjective Subjective Patient was seen & assessed and interval progress reviewed with nursing. Attending groups, social with peers. Today reports mood as "thoughtful". Showered last night. Still declining to sign an MIGUEL for her outpatient psychiatric provider at [facility]. Slept well overnight. Today had increased anxiety after an upsetting phone call with her mom. She utilized prn dose of Vistaril and found this helpful. Reflects that she is glad to be off benzodiazepines and likes the current medications and feels they are helping her sleep. Some brief SI today in context of difficult phone call. Physical Exam Psychiatric Orientation: alert and oriented x 3 Apperance: appropriately dressed and appropriately groomed Eye Contact: good eye contact Motor Behavior: no abnormal motor movements Speech: normal rate/rhythm/volume of speech Affect: + anxious affect Mood: + depressed mood and + anxious mood Thought Process: goal directed thought process Thought Content: reality based without delusions Suicidal Thoughts: denies suicidal plan; + reports suicidal thoughts Homicidal Thoughts: denies homicidal thoughts Hallucinations: no auditory hallucinations and no visual hallucinations Insight: + fair insight Judgment: + fair judgement Vital Signs (Past 24 Hours) Last Vital Signs Temp 36.4 C 02/25/25 06:00 Pulse 70 02/25/25 06:10 Resp 16 02/25/25 06:00 BP 107/74 02/25/25 06:10 Pulse Ox 96 02/25/25 06:00 O2 Del Method Room Air 02/25/25 06:00 Results & Data ([facility]) Current Inpatient Medications Current Inpatient Medications: Current Inpatient Medications Acetaminophen (Acetaminophen 325 Mg Tab) 650 mg PO Q4H PRN PRN Reason: Headache or Minor Fever Stop: 03/24/25 01:04 Al Hydrox/Mg Hydrox/Simethicone (Aluminum/Magnesium Susp 30 Ml Udc) 30 ml PO Q4H PRN PRN Reason: GI Upset Stop: 03/24/25 01:04 Albuterol (Albuterol Hfa 8 Gm Inhaler) 2 puffs INH Q4 PRN PRN Reason: Shortness Of Breath Or Wheezing Stop: 03/24/25 01:24 Last Admin: 02/23/25 18:31 Dose: 2 puffs Bismuth Subsalicylate (Bismuth Subsalicylate 262 Mg Chew) 2 tab PO Q30M PRN PRN Reason: Loose Stool/Diarrhea Stop: 03/24/25 01:04 Doxazosin Mesylate (Doxazosin Mesylate Tab 2 Mg Tab) 2 mg PO HS MARY Stop: 03/26/25 21:59 Last Admin: 02/24/25 21:12 Dose: 2 mg Fish Oil ([place]-3 (Purified Fish Oil) 1 Gm Cap) 1 cap PO QAM MARY Stop: 03/26/25 14:44 Last Admin: 02/25/25 08:33 Dose: 1 cap Hydroxyzine HCl (Hydroxyzine Hcl 25 Mg Tab) 50 mg PO HSZ PRN PRN Reason: Insomnia Stop: 03/24/25 01:04 Last Admin: 02/22/25 21:45 Dose: 50 mg Hydroxyzine HCl (Hydroxyzine Hcl 25 Mg Tab) 25 mg PO Q4H PRN PRN Reason: Anxiety Stop: 03/24/25 01:04 Ibuprofen (Ibuprofen 200 Mg Tab) 400 mg PO Q4H PRN PRN Reason: Pain or Fever Stop: 03/24/25 14:31 Last Admin: 02/23/25 11:54 Dose: 400 mg Magnesium Hydroxide (Magnesium Hydroxide Susp 30 Ml Udc) 30 ml PO DAILY PRN PRN Reason: Constipation Stop: 03/24/25 01:04 Melatonin (Melatonin 3 Mg Tab) 3 mg PO HS PRN PRN Reason: Sleep Stop: 03/24/25 01:27 Miscellaneous (Remove Nicoderm Patch) 1 each N/A DAILY@0859 [facility] Stop: 03/24/25 08:58 Last Admin: 02/25/25 08:37 Dose: Not Given Multivitamins (Multivitamin Tab) 1 tab PO QAM [facility] Stop: 03/26/25 14:44 Last Admin: 02/25/25 08:33 Dose: 1 tab Nicotine (Nicotine 14 Mg/24 Hr Patch) 1 patch TD QAM [facility] Stop: 03/24/25 08:59 Last Admin: 02/25/25 08:36 Dose: Not Given Nicotine Polacrilex (Nicotine Polacrilex 2 Mg Gum) 1 piece MT PRN PRN PRN Reason: Nicotine Withdrawal Symptoms Stop: 03/24/25 01:23 Last Admin: 02/24/25 17:41 Dose: 1 piece Sodium Chloride (Sodium Chloride 0.65% Na Soln 45 Ml ([place])) 1 - 2 sprays NA PRN PRN PRN Reason: Nasal Dryness/Congestion Stop: 03/24/25 01:04 Trazodone HCl (Trazodone Hcl 100 Mg Tab) 100 mg PO PM MARY Stop: 03/25/25 20:59 Last Admin: 02/24/25 21:12 Dose: 100 mg Vitamin D (Cholecalciferol 125 Mcg (5,000 Units) Tab) 125 mcg PO QAM MARY Stop: 03/25/25 10:14 Last Admin: 02/25/25 08:33 Dose: 125 mcg Mental Health & Subst Abuse Tx Psychiatrist Name of Psychiatrist: Nuzhat Liz PA-C [facility] Psychiatrist's Therapist Name of Therapist: [facility] Therap[facility]'s Therapy Appointment Comment: Next IOP 03/28. They will call pt directly to schedule intake after DC. Platen Builder Up Name of Platen Builder Up: Dennys MANE Phone Number for Platen Builder Up: [phone] Date of Appointment with Platen Builder Up: 03/02/25 Time of Appointment with Platen Builder Up: 12:00 pm Case Management Appointment Comment: Unit meeting with pt on 02/24/25 @12 Post Discharge Appointments Primary Care Physician [facility] Date of Future Appointment with PCP: 03/02 Time of Appointment with PCP: 1:30PM Provider Appointment Comment: [place] location Contact Information Discharge Discharge Address: [address] [place] [address] [address] (10) Nicotine dependence Nicotine product type: cigarettes Substance use status: uncomplicated Qualified Code(s): F17.210 - Nicotine dependence, cigarettes, uncomplicated (11) Asthma Asthma complication type: with acute exacerbation Asthma persistence: intermittent Asthma severity: mild Qualified Code(s): J45.21 - Mild intermittent asthma with (acute) exacerbation
[2025-02-25 12:52] LABS: Marijuana Quant, GCMS Urine 183 ng/mL (<5)
--- NOTE | 2025-02-26 09:39 | Psychiatric Progress Note ---
Date of Service February 26, 2025 Impression / Recommendations Impression ROOSEVELT Knutson" is a 50-year-old woman who currently lives alone, has a history of depression, anxiety, PTSD, body dysmorphia, cannabis-induced psychosis, and was admitted on 02/22/25 01:06 on a 201 voluntary commitment for suicidal ideation. Presentation concerning for PTSD and depression. Presents with on-going suicidal ideation in relation to recent and financial stressors and active psychiatric symptoms. Patient self discontinued previous psychotropics and presents with a resurgence of PTSD related anxiety and nightmares and major depressive episode. Presents with persecutory delusions with ideas of reference and anxious paranoia. Daily marijuana user and may be contributing to psychosis. Patient presents limited insight into her symptoms and treatment and reluctant to start medications given past intolerability. A:Mood improving, sleeping well, tolerating medications. Monitor for ongoing progress given some paranoid/delusional statements this morning. Overall, I spent a total of 30 minutes on this case including meeting with the patient, reviewing the chart, nursing report, multidisciplinary team meeting, orders, and documentation. (1) Suicidal ideation: (2) Depression: (3) Paranoia: (4) Delusion of persecution: (5) Post traumatic stress disorder (PTSD): (6) Paranoid personality disorder: (7) Cluster B personality disorder: (8) Cannabis use disorder: (9) Polysubstance abuse: (10) Nicotine dependence: (11) Asthma: (12) Vitamin D insufficiency: (13) Prediabetes: Plan 02/26/2025: Product Demonstrator consult per her request. Continue current medications and tx plan. 02/25/2025: Continue current medications and tx plan 02/24/2025: Increase doxazosin to 2 mg at bedtime. Start multivitamin and fish oil. 02/23/2025: Increase trazodone to 100 mg at bedtime. Start vitamin D 125 mcg daily. Provided education on mindfulness meditation and sleep hygiene. 02/22/2025:The patient was admitted to the [facility] on q15 min checks (behavioral with suicide precautions) for safety. The patient will participate in group, recreational, and milieu therapies and will be offered additional individual and family sessions as clinically appropriate. - Start trazodone 50 mg at bedtime Start doxazosin 1 mg at bedtime Labs: Repeat TSH, Vit B12, Vit D, A1C, fasting lipids Inventory Assets Strengths: support seeking, assertive Needs: medication adherence, improved self image Suicide Risk Level Suicide Risk Level: Moderate (q15 min suicide checks) (denies SI, mood improving, feels safe and feels able to ask for support if needed) Risk Factors Assessment Male: No : Yes Do You Have Access To A Gun?: No Health Problems: Yes Mental Health Diagnoses: Yes Substance Use Disorders: Yes Previous Attempt: Yes Family History of Suicide: No Previous Psychiatric Hospitalization: Yes Hopelessness: Yes Protective Factors Assessment Roman Catholic Beliefs: No : No Responsible for Young Children: No Employed: No ([employer]) Stable Relationships: No Supportive Family: No Good Rapport with Provider: Yes Absence of Any Risk Factors Above: No Interval History Identifying Information ROOSEVELT Lambert" is a 50-year-old F who currently lives alone, has a history of depression, anxiety, PTSD, body dysmorphia, cannabis-induced psychosis, and was admitted on 02/22/25 01:06 on a 201 voluntary commitment for suicidal ideation. Chief Complaint "I think the medications are helping". Review of Systems Sleep Information Total Hours of Sleep: 8.25 Meal Information Percent Meal Consumed - Breakfast: 100 Percent Meal Consumed - Lunch: 100 Percent Meal Consumed - Dinner: 100 Subjective Subjective Patient was seen & assessed and interval progress reviewed with nursing and s ocial work. Had an additional prn Vistaril last evening. This morning during group made reference to having a third eye but noted it was now closed. Slept >8 hours, eating well. Attending some groups. Watched a movie with peers last evening. Today reports sleeping well and likes her medications. Denies any side effects. Physical Exam Psychiatric Orientation: alert and oriented x 3 Apperance: appropriately dressed and appropriately groomed Eye Contact: good eye contact Motor Behavior: no abnormal motor movements Speech: normal rate/rhythm/volume of speech Affect: + constricted affect (but with some smiles) Mood: + anxious mood; no depressed mood Thought Process: goal directed thought process Thought Content: + paranoid (possibly this morning) and reality based without delusions Suicidal Thoughts: denies suicidal thoughts and denies suicidal plan Homicidal Thoughts: denies homicidal thoughts Hallucinations: no auditory hallucinations and no visual hallucinations Insight: + fair insight Judgment: + fair judgement Vital Signs (Past 24 Hours) Last Vital Signs Temp 36.6 C 02/26/25 06:00 Pulse 69 02/26/25 06:19 Resp 16 02/26/25 06:00 BP 128/84 02/26/25 06:19 Pulse Ox 98 02/26/25 06:00 O2 Del Method Room Air 02/26/25 06:00 Results & Data ([facility]) Laboratory Results Laboratory Results - last 24 hr 02/21/25 Unknown U Marijuana THC Carboxy 183 H Drug Screen Comment SEE NOTE Current Inpatient Medications Current Inpatient Medications: Current Inpatient Medications Acetaminophen (Acetaminophen 325 Mg Tab) 650 mg PO Q4H PRN PRN Reason: Headache or Minor Fever Stop: 03/24/25 01:04 Al Hydrox/Mg Hydrox/Simethicone (Aluminum/Magnesium Susp 30 Ml Udc) 30 ml PO Q4H PRN PRN Reason: GI Upset Stop: 03/24/25 01:04 Albuterol (Albuterol Hfa 8 Gm Inhaler) 2 puffs INH Q4 PRN PRN Reason: Shortness Of Breath Or Wheezing Stop: 03/24/25 01:24 Last Admin: 02/25/25 19:04 Dose: 2 puffs Bismuth Subsalicylate (Bismuth Subsalicylate 262 Mg Chew) 2 tab PO Q30M PRN PRN Reason: Loose Stool/Diarrhea Stop: 03/24/25 01:04 Doxazosin Mesylate (Doxazosin Mesylate Tab 2 Mg Tab) 2 mg PO HS MARY Stop: 03/26/25 21:59 Last Admin: 02/25/25 20:28 Dose: 2 mg Fish Oil ([place]-3 (Purified Fish Oil) 1 Gm Cap) 1 cap PO QAM MARY Stop: 03/26/25 14:44 Last Admin: 02/26/25 08:26 Dose: 1 cap Hydroxyzine HCl (Hydroxyzine Hcl 25 Mg Tab) 50 mg PO HSZ PRN PRN Reason: Insomnia Stop: 03/24/25 01:04 Last Admin: 02/22/25 21:45 Dose: 50 mg Hydroxyzine HCl (Hydroxyzine Hcl 25 Mg Tab) 25 mg PO Q4H PRN PRN Reason: Anxiety Stop: 03/24/25 01:04 Last Admin: 02/25/25 17:17 Dose: 25 mg Ibuprofen (Ibuprofen 200 Mg Tab) 400 mg PO Q4H PRN PRN Reason: Pain or Fever Stop: 03/24/25 14:31 Last Admin: 02/23/25 11:54 Dose: 400 mg Magnesium Hydroxide (Magnesium Hydroxide Susp 30 Ml Udc) 30 ml PO DAILY PRN PRN Reason: Constipation Stop: 03/24/25 01:04 Melatonin (Melatonin 3 Mg Tab) 3 mg PO HS PRN PRN Reason: Sleep Stop: 03/24/25 01:27 Miscellaneous (Remove Nicoderm Patch) 1 each N/A DAILY@0859 [facility] Stop: 03/24/25 08:58 Last Admin: 02/26/25 08:32 Dose: Not Given Multivitamins (Multivitamin Tab) 1 tab PO QAM [facility] Stop: 03/26/25 14:44 Last Admin: 02/26/25 08:26 Dose: 1 tab Nicotine (Nicotine 14 Mg/24 Hr Patch) 1 patch TD QAM [facility] Stop: 03/24/25 08:59 Last Admin: 02/26/25 08:30 Dose: Not Given Nicotine Polacrilex (Nicotine Polacrilex 2 Mg Gum) 1 piece MT PRN PRN PRN Reason: Nicotine Withdrawal Symptoms Stop: 03/24/25 01:23 Last Admin: 02/25/25 19:04 Dose: 1 piece Sodium Chloride (Sodium Chloride 0.65% Na Soln 45 Ml ([place])) 1 - 2 sprays NA PRN PRN PRN Reason: Nasal Dryness/Congestion Stop: 03/24/25 01:04 Trazodone HCl (Trazodone Hcl 100 Mg Tab) 100 mg PO PM [facility] Stop: 03/25/25 20:59 Last Admin: 02/25/25 20:28 Dose: 100 mg Vitamin D (Cholecalciferol 125 Mcg (5,000 Units) Tab) 125 mcg PO QAM [facility] Stop: 03/25/25 10:14 Last Admin: 02/26/25 08:26 Dose: 125 mcg Mental Health & Subst Abuse Tx Psychiatrist Name of Psychiatrist: PCP to complete med management Psychiatrist's Therapist Name of Therapist: [facility] Therap[facility]'s Therapy Appointment Comment: Next IOP 03/28. They will call you directly to schedule intake after DC Dietetic Technician Name of Dietetic Technician: Dennys MANE Phone Number for Dietetic Technician: [phone] Date of Appointment with Dietetic Technician: 03/02/25 Time of Appointment with Dietetic Technician: 12:00 pm Case Management Appointment Comment: Unit meeting with pt on 02/24/25 @12 Post Discharge Appointments Primary Care Physician [facility] Date of Future Appointment with PCP: 03/02 Time of Appointment with PCP: 1:30PM Provider Appointment Comment: [place] location Contact Information Discharge Discharge [address]: [address] [place] [address] [address] (10) Nicotine dependence Nicotine product type: cigarettes Substance use status: uncomplicated Qualified Code(s): F17.210 - Nicotine dependence, cigarettes, uncomplicated (11) Asthma Asthma complication type: with acute exacerbation Asthma persistence: intermittent Asthma severity: mild Qualified Code(s): J45.21 - Mild intermittent asthma with (acute) exacerbation
[2025-02-27 06:18] VITALS: PULSE 67; TEMP 97; O2SAT 97
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
[2025-02-27 10:36] VITALS: BP 122/74
== END 2025-02-27 10:50 | disposition home or self-care (01) ==
LOC: ED 21:59 → 3S 02-22 00:55 → SUATTDRO 02-22 01:06 → 3S 02-22 01:06